=== PATIENT | male | born 1955 | race Caucasian/White ===

== ENCOUNTER 2020-10-07 13:20 | Inpatient (IN) ==
[2020-10-07] MEDS ORDERED: IOPAMIDOL 100 ML BOTTLE IV ONE (13:21)
[2020-10-07 14:19] LABS: POC Blood Urea Nitrogen 22 mg/dL (6-20); POC CO2 21 mmol/L (22-30); POC Calcium, Ionized 1.14 mmEq/L (1.16-1.32); POC Chloride 96 mEq/L (96-108); POC Creatinine 1.2 mg/dL (0.6-1.2); POC Glucose, Random 251 mg/dL (70-105); POC Hematocrit 51 % (41-55); POC Potassium 3.7 mEql/L (3.3-5.1); POC Sodium 136 mEq/L (133-145)
[2020-10-07 14:33] LABS: Basophils # (Auto) 0.04 K/mcL (0.00-0.20); Basophils % (Auto) 0.3 % (0.0-2.0); Eosinophils # (Auto) 0 K/mcL (0.00-0.70); Eosinophils % (Auto) 0 % (0.0-7.0); Hematocrit 50.9 % (41.0-55.0); Hemoglobin 16.5 g/dL (13.5-16.5); Lymphocytes # (Auto) 0.36 K/mcL (1.50-4.80); Lymphocytes % (Auto) 2.8 % (15.0-49.0); Mean Cell Volume 85.7 fL (80.0-100.0); Mean Corpuscular HGB Conc 32.4 g/dL (31.0-36.0); Mean Platelet Volume 10.9 fL (7.4-10.4); Monocytes # (Auto) 0.59 K/mcL (0.10-0.90); Monocytes % (Auto) 4.6 % (1.0-12.0); Neutrophils % (Auto) 92.3 % (38.0-78.0); Platelet Count 280 K/mcL (140-440); RBC 5.94 M/mcL (4.50-5.90); Red Cell Distribution Width 15.3 % (11.5-14.5); WBC 12.9 K/mcL (4.5-11.0)
--- NOTE | 2020-10-07 15:11 | Cat Scan Report ---
History: Perforated bowel with free intra-abdominal air and abdominal pain TECHNIQUE: The patient was imaged following injection of intravenous nonionic contrast scanning during the portal venous phase from the diaphragm to the symphysis pubis. Sagittal and coronal reformats were created. The radiation exposure was limited using dose reduction technology. FINDINGS: There are several bands of discoid atelectasis in the left lung base. No pleural effusion is present. Liver is normal in size. There is mild generalized fatty infiltration. There are couple tiny cysts in the right lobe. Liver otherwise appears normal. The gallbladder and bile ducts are normal. The spleen is normal in size and homogeneous. There is no mass or inflammation in the pancreas. The adrenals are normal. A couple small cortical cysts are present in both kidneys. There is no mass calculus or hydronephrosis in either kidney. Free intra-abdominal air is present in the mid and upper abdomen. This is due to acute sigmoid diverticulitis. There are numerous diverticula in the descending and sigmoid colon. There is stranding of the fat around the sigmoid colon and a small pocket of fluid. No abscess is present. There is no bowel obstruction. Patient has ileus with several fluid filled borderline distended loops of small intestine the mid abdomen. These contain air-fluid levels. Urinary bladder appears normal. Prostate is mildly enlarged and contains calcifications. Moderate amount of calcified plaque is present in the aorta and iliac arteries. Aorta is normal in caliber. There is a small fat-containing umbilical hernia. The hernia also contains a bubble of intraperitoneal air. There is ankylosis across the L5-S1 disc space. Moderate disc space narrowing and osteoarthritis are present at multiple levels throughout the mid and lower thoracic spine. IMPRESSION: Acute sigmoid diverticulitis with perforation allowing for free intra-abdominal air. Ileus Dr. Reza was called with report Interpreted and Authenticated by: Lexa Edmonds 10/07/20
[2020-10-07] MEDS ORDERED: 0.9 % SODIUM CHLORIDE 1,000 ML IV ONE (15:22)
[2020-10-07] MEDS ORDERED: metroNIDAZOLE 500 MG/100 ML BAG IV ONE (15:25)
[2020-10-07] MEDS ORDERED: LEVOFLOXACIN 750 MG/150 ML BAG IV ONE (15:27)
--- NOTE | 2020-10-07 15:39 | Emergency Department Note ---
HPI General Chief complaint: Abdominal Pain Stated complaint: Abdominal pain Time Seen by Provider: 10/07/20 13:23 Source: patient Mode of arrival: ambulatory Limitations: no limitations History of Present Illness HPI Narrative: This is a 65-year-old diabetic male who presents with about 48 hours of abdominal pain. He feels it most notably in the left lower quadrant. He has had some nausea, but no vomiting. He feels like his belly is distended. He denies fever/chills/sweats. Last normal stool was last night, but he states it was dark but not melanic. Remainder of his medical history is significant for hypertension, hyperlipidemia, hypothyroidism. Related Data Previous Rx's Medication Instructions Recorded hydrochlorothiazide 50 mg tablet See Rx Instructions .ROUTE 05/28/20 .COMPLEX #30 tab gemfibrozil 600 mg tablet 600 mg PO QAM #90 tab 07/29/20 levothyroxine 50 mcg tablet 50 mcg PO QDAY #90 tab 07/29/20 bupropion HCl 300 mg 24 hr tablet, 450 mg PO QAM #90 tab 08/20/20 extended release empagliflozin 25 mg tablet See Rx Instructions .ROUTE 09/02/20 .COMPLEX #30 tab glipizide 2.5 mg-metformin 250 mg 2 tab PO BID #120 tab 09/30/20 tablet losartan 50 mg tablet See Rx Instructions .ROUTE 09/30/20 .COMPLEX #30 tab Allergies Allergy/AdvReac Type Severity Reaction Status Date / Time No Known Drug Allergies Allergy Verified 10/07/20 13:33 Review of Systems ROS ROS Narrative: Narrative: All systems ED: reviewed and negative except as stated. [facility] Narrative Patient History Narrative: Narrative: Medical/Surgical/Family History All Active Problems Perforated diverticulum of large intestine (Acute) Abdominal distention (Acute) Abdominal pain (Acute) Irregular heart rhythm (Acute) Medicare welcome visit (Acute) Encounter for tobacco use cessation counseling (Acute) Chewing tobacco use (Chronic) Encounter for Health Maintenance Examination in Adult (Chronic) Hypothyroid (Chronic) Exostosis (Chronic) Wellness examination (Chronic) H/O carbon monoxide poisoning (Chronic ~07/23/11) DMII (diabetes mellitus, type 2) (Chronic) Marijuana use (Chronic) History of tobacco use (Chronic) Stomach ulcer (Chronic ~08/22/71) Hyperlipidemia (Chronic ~09/22/91) Hypertension, essential (Chronic ~09/22/91) Depression (Chronic ~06/26/91) Anxiety (Chronic ~04/23/91) Medical History Anxiety (~04/23/91) Chewing tobacco use Depression (~06/26/91) DMII (diabetes mellitus, type 2) dx 2009 Encounter for Health Maintenance Examination in Adult 06/20/17 Encounter for tobacco use cessation counseling H/O carbon monoxide poisoning (~07/23/11) at [place], 2012 History of tobacco use Hyperlipidemia (~09/22/91) Hypertension, essential (~09/22/91) Hypothyroid Irregular heart rhythm Marijuana use Medicare welcome visit Stomach ulcer (~08/22/71) Wellness examination Surgical History H/O colonoscopy (~2009) Dr. Alford, 2009 repeat Q5 years 06/2016 3 polyps, repeat 5 years H/O knee surgery (~2001) History of esophagogastroduodenoscopy (EGD) (~1991) History of thyroid surgery (~1959) Thyroglossal duct excision at 5 years old Family History Grandmother Arthritis Paternal Mother Cancer Alcohol abuse Father Colon cancer Hypertension, essential Heart disease Hypertensive renal disease Sister Hypertension, essential Family/Other Thyroid disease Cousin Social History Smoking Status: Former smoker Alcohol Intake Frequency: a few times a week Substance Use: marijuana Exam Narrative Narrative: General: AOx3, NAD, nontoxic appearing. Pleasant and conversant. HEENT: PERRLA, EOMI, normocephalic. Moist mucous membranes. Normal facies Chest: Symmetric, no pain to palpation Respiratory: Lungs clear to auscultation bilaterally to the anterior lungs. No respiratory distress. Unlabored breathing. Heart: Regular rate and rhythm, no murmurs/clicks/rubs. Abdomen: Distended and diffusely tender, worse over the hypogastrium. Absent bowel tones. Extremities: Warm and well perfused. No edema. DP 2+ bilaterally. No venous stasis. Neuro: No focal deficits. Cranial nerves II-XII normal. Skin: Warm dry, no rashes or lesions, no cyanosis. Psych: Normal mood and affect Heme/Lymph: No abnormal bruising General Limitations: no limitations Course Course Course Narrative: 65-year-old male presents with acute abdominal pain Reevaluation(s) Reevaluation #1: Obtain basic labs, CBC, CMP, lipase Obtain CT of the abdomen pelvis with contrast to query diverticulitis Reevaluation #2: Plain film of the abdomen shows free air in the abdomen. CT with contrast of the abdomen pelvis shows a perforation of a sigmoid diverticuli with small area of fluid fluid and air in the peritoneal cavity. There is no abscess formation. An ileus is also noted. We will start patient on metronidazole and levofloxacin. Give IV fluids, analgesics, and call placed to general surgery. Covid swab for admission. Vital Signs Vital signs: Vital Signs Temperature 97.0 F 10/07/20 13:31 Pulse Rate 120 H 10/07/20 13:31 Respiratory Rate 20 10/07/20 13:31 Blood Pressure 151/85 10/07/20 13:31 Pulse Oximetry (%) 93 10/07/20 13:31 Temperature 97.0 F 10/07/20 13:31 Pulse Rate 102 H 10/07/20 18:01 Respiratory Rate 20 10/07/20 13:31 Blood Pressure 123/73 10/07/20 18:01 Pulse Oximetry (%) 86 L 10/07/20 18:01 [facility] MDM Narrative Medical decision making narrative: Perforated sigmoid diverticuli I have spoken with Dr. Deluca and he would like the patient admitted. He will be the admitting provider and I have written basic orders for admission. The plan will be for conservative management, nonoperative at this time. Patient has been given metronidazole and levofloxacin. He remains on IV fluids and analgesics. Consult hospitalist for comanagement of his diabetes and blood pressure. Lab Data Result diagrams: 10/07/20 13:40 Labs: Lab Results 10/07/20 10/07/20 10/07/20 Range/Units 13:40 13:40 14:10 WBC 12.9 H (4.5-11.0) K/mcL RBC 5.94 H (4.50-5.90) M/mcL Hgb 16.5 (13.5-16.5) g/dL Hct 50.9 (41.0-55.0) % POC Hct TNP 51 MCV 85.7 (80.0-100.0) fL MCH 27.8 (26.0-34.0) pg MCHC 32.4 (31.0-36.0) g/dL RDW 15.3 H (11.5-14.5) % Plt Count 280 (140-440) K/mcL MPV 10.9 H (7.4-10.4) fL Neut % (Auto) 92.3 H (38.0-78.0) % Lymph % (Auto) 2.8 L (15.0-49.0) % [place] % (Auto) 4.6 (1.0-12.0) % Eos % (Auto) 0 (0.0-7.0) % Baso % (Auto) 0.3 (0.0-2.0) % Lymph # (Auto) 0.36 L (1.50-4.80) K/mcL [place] # (Auto) 0.59 (0.10-0.90) K/mcL Eos # (Auto) 0 (0.00-0.70) K/mcL Baso # (Auto) 0.04 (0.00-0.20) K/mcL Absolute Neutrophils 11.89 H (1.80-8.00) K/mcL POC Sodium TNP 136 POC Potassium TNP 3.7 POC Chloride TNP 96 POC Total CO2 TNP 21 L POC BUN TNP 22 H POC Creatinine TNP 1.2 POC Glucose TNP 251 H POC WB Ioniz Calcium TNP 1.14 L ED POC Tests ED POC Tests: RORY - SARS Antigen Negative Discharge Plan Patient/Caregiver Discharge Instructions Pt seen by [facility]/PA only: Yes Clinical Impression: Perforated diverticulum of large intestine Patient Disposition: Xfer As Inpt ([facility]) Condition: Fair Discharge Date/Time: 10/07/20 18:35
[2020-10-07] MEDS: morphine 2 MG/ML VIAL IV PRN ×2 (16:00→17:05)
[2020-10-07] MEDS ORDERED: morphine 4 MG/ML VIAL IV PRN (16:25)
[2020-10-07] MEDS ORDERED: ONDANSETRON 4 MG/2 ML VIAL IV PRN ×2 (16:25→18:48)
[2020-10-07] MEDS: 0.9 % SODIUM CHLORIDE 1,000 ML IV SCH ×2 (17:00→23:48)
[2020-10-07] MEDS ORDERED: LOSARTAN 50 MG TABLET PO SCH (18:45)
[2020-10-07] MEDS ORDERED: diphenhydrAMINE 25 MG CAPSULE PO PRN (18:53)
--- NOTE | 2020-10-07 19:52 | General Surg History&Physical ---
HPI History of Present Illness Patient information: Note initiated : 10/07/20 at 7:44 pm Service Date, if different from initiated Date: [] Patient: Agustin Goldsmith a 65 y/o M admitted on 10/07/20 for Abdominal pain. Chief Complaint: [] Chief complaint: Diverticulitis History of present illness: Mr. Goldsmith is a 65 year old M with onset of severe abdominal pain while eating on 05 October. The pain was mid abdomen and gradually spread across his entire abdomen. He noted some abdominal distention. He did not have nausea or vomiting. He finally came to the emergency room when the pain became unbearable. He denies fever or chills. In the emergency room he was noted to have small amount of free air on his plain films and CT confirms sigmoid diverticulitis with perforation but without abscess. There is small amount of fluid around the sigmoid colon and air in both subphrenic areas and anteriorly in the abdomen. He is afebrile and his white blood count is 12.5. Review of Systems All systems: reviewed and no additional remarkable complaints except as stated PFSH PFSH All Active Problems Perforated diverticulum of large intestine (Acute) Abdominal distention (Acute) Abdominal pain (Acute) Irregular heart rhythm (Acute) Medicare welcome visit (Acute) Encounter for tobacco use cessation counseling (Acute) Chewing tobacco use (Chronic) Encounter for Health Maintenance Examination in Adult (Chronic) Hypothyroid (Chronic) Exostosis (Chronic) Wellness examination (Chronic) H/O carbon monoxide poisoning (Chronic ~07/23/11) DMII (diabetes mellitus, type 2) (Chronic) Marijuana use (Chronic) History of tobacco use (Chronic) Stomach ulcer (Chronic ~08/22/71) Hyperlipidemia (Chronic ~09/22/91) Hypertension, essential (Chronic ~09/22/91) Depression (Chronic ~06/26/91) Anxiety (Chronic ~04/23/91) Medical History Anxiety (~04/23/91) Chewing tobacco use Depression (~06/26/91) DMII (diabetes mellitus, type 2) dx 2009 Encounter for Health Maintenance Examination in Adult 06/20/17 Encounter for tobacco use cessation counseling H/O carbon monoxide poisoning (~07/23/11) at [place], 2012 History of tobacco use Hyperlipidemia (~09/22/91) Hypertension, essential (~09/22/91) Hypothyroid Irregular heart rhythm Marijuana use Medicare welcome visit Stomach ulcer (~08/22/71) Wellness examination Surgical History H/O colonoscopy (~2009) Dr. Alford, 2009 repeat Q5 years 06/2016 3 polyps, repeat 5 years H/O knee surgery (~2001) History of esophagogastroduodenoscopy (EGD) (~1991) History of thyroid surgery (~1959) Thyroglossal duct excision at 5 years old Family History Grandmother Arthritis Paternal Mother Cancer Alcohol abuse Father Colon cancer Hypertension, essential Heart disease Hypertensive renal disease Sister Hypertension, essential Family/Other Thyroid disease Cousin Social History marital status: single alcohol intake frequency: a few times a week substance use type: marijuana MEDS/ALLERGIES Home Medications and Allergies Home Medications Medication Instructions Recorded Confirmed Type hydrochlorothiazide 50 mg tablet See Rx Instructions .ROUTE 05/28/20 10/07/20 Rx .COMPLEX #30 tab gemfibrozil 600 mg tablet 600 mg PO QAM #90 tab 07/29/20 10/07/20 Rx levothyroxine 50 mcg tablet 50 mcg PO QDAY #90 tab 07/29/20 10/07/20 Rx bupropion HCl 300 mg 24 hr tablet, 450 mg PO QAM #90 tab 08/20/20 10/07/20 Rx extended release empagliflozin 25 mg tablet See Rx Instructions .ROUTE 09/02/20 10/07/20 Rx .COMPLEX #30 tab glipizide 2.5 mg-metformin 250 mg 2 tab PO BID #120 tab 09/30/20 10/07/20 Rx tablet losartan 50 mg tablet See Rx Instructions .ROUTE 09/30/20 10/07/20 Rx .COMPLEX #30 tab Allergies Allergy/AdvReac Type Severity Reaction Status Date / Time No Known Drug Allergies Allergy Verified 10/07/20 13:33 Physical Examination Vital Signs Vital signs: Temp Pulse Resp BP Pulse Ox 97.0 F 102 H 20 123/73 86 L 10/07/20 13:31 10/07/20 18:01 10/07/20 13:31 10/07/20 18:01 10/07/20 18:01 General physical appearance General physical exam: well developed, well nourished, no distress, moderate pain and obese Eyes Eye exam: PERRL and normal ocular movement ENT ENT exam: normal mucosa Head Head exam IM: Present atraumatic, normal inspection and normocephalic Neck Neck exam: no masses, trachea midline, no lymphadenopathy and no venous di stension Cardiovascular Cardiovascular exam IM: Present normal rate and rhythm, RRR, +S1 and +S2; Absent gallop and JVD Respiratory Respiratory exam: normal expansion, normal respiratory effort and clear to auscultation Abdomen Abdomen: Present tender (Diffuse tenderness in the lower and mid abdomen with guarding), bowel sounds and guarding Integumentary Integumentary: Present no rash, no growths and no abnormal pigmentation Neurologic Neurologic: Present normal coordination and normal sensation Musculoskeletal Musculoskeletal: Present normal gait and normal posture Psychiatric Psychiatric: Present oriented to time, oriented to person, oriented to place, speech is normal and memory intact Results Labs Result diagrams: 10/07/20 13:40 Labs: Abnormal lab results 10/07/20 10/07/20 Range/Units 13:40 14:10 WBC 12.9 H (4.5-11.0) K/mcL RBC 5.94 H (4.50-5.90) M/mcL RDW 15.3 H (11.5-14.5) % MPV 10.9 H (7.4-10.4) fL Neut % (Auto) 92.3 H (38.0-78.0) % Lymph % (Auto) 2.8 L (15.0-49.0) % Lymph # (Auto) 0.36 L (1.50-4.80) K/mcL Absolute Neutrophils 11.89 H (1.80-8.00) K/mcL POC Total CO2 21 L (22-30) mmol/L POC BUN 22 H (6-20) mg/dL POC Glucose 251 H (70-105) mg/dL POC WB Ioniz Calcium 1.14 L (1.16-1.32) mmEq/L All other labs normal. 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 status He will receive Levaquin and metronidazole IV As long as he is improving we will continue antibiotics until 4days at which time a follow-up CT of the abdomen and pelvis will be done. If he should worsen he is advised that he will have urgent laparotomy with sigmoid resection and colostomy If he should improve he will be discharged home on 2 weeks of antibiotics with follow-up in the office to confirm full healing of his diverticulitis. Time Spent With Patient Time: Total time spent is greater than 50% in coordination of care (as documented) at patient's floor/unit and/or counseling patient:
[2020-10-07] MEDS: 0.9 % SODIUM CHLORIDE 10 ML SYRINGE IV SCH (20:43)
[2020-10-07] MEDS: HYDROmorphone 0.5 MG/0.5 ML SYRINGE IV PRN ×2 (20:48→23:57)
[2020-10-07 20:51] LABS: INR 1.2 (0.9-1.1); Prothrombin Time 16.1 sec (11.9-14.5)
[2020-10-07] MEDS ORDERED: DEXTROSE 31 GM ORAL.SUSP PO PRN (21:02)
[2020-10-07] MEDS ORDERED: DEXTROSE 50% 50 ML VIAL IV PRN (21:02)
[2020-10-07] MEDS: INSULIN LISPRO 1 UNIT/0.01 ML UNIT SQ SCH (23:57)
[2020-10-08] MEDS: HYDROmorphone 0.5 MG/0.5 ML SYRINGE IV PRN ×4 (04:18→19:52)
[2020-10-08] MEDS: 0.9 % SODIUM CHLORIDE 10 ML SYRINGE IV SCH ×3 (05:57→23:12)
[2020-10-08] MEDS: INSULIN LISPRO 1 UNIT/0.01 ML UNIT SQ SCH ×4 (05:57→23:40)
[2020-10-08 06:48] LABS: Basophils # (Auto) 0.02 K/mcL (0.00-0.20); Basophils % (Auto) 0.2 % (0.0-2.0); Eosinophils # (Auto) 0 K/mcL (0.00-0.70); Eosinophils % (Auto) 0 % (0.0-7.0); Hematocrit 45.8 % (41.0-55.0); Hemoglobin 14.7 g/dL (13.5-16.5); Lymphocytes # (Auto) 0.36 K/mcL (1.50-4.80); Lymphocytes % (Auto) 3.3 % (15.0-49.0); Mean Cell Volume 87.1 fL (80.0-100.0); Mean Corpuscular HGB Conc 32.1 g/dL (31.0-36.0); Mean Platelet Volume 10.4 fL (7.4-10.4); Monocytes # (Auto) 0.49 K/mcL (0.10-0.90); Monocytes % (Auto) 4.5 % (1.0-12.0); Platelet Count 214 K/mcL (140-440); RBC 5.26 M/mcL (4.50-5.90); Red Cell Distribution Width 15.5 % (11.5-14.5); WBC 10.8 K/mcL (4.5-11.0)
[2020-10-08 07:08] LABS: ALT/SGPT 12 U/L (<40); AST/SGOT 10 U/L (<40); Albumin 3.4 gm/dL (3.2-5.2); Alkaline Phosphatase 68 U/L (39-117); Bilirubin,Direct 0.2 mg/dL (<0.3); Bilirubin,Total 0.6 mg/dL (0.1-1.0); Blood Urea Nitrogen 22 mg/dL (8-23); Calcium 8.7 mg/dL (8.6-10.4); Carbon Dioxide 23 mmol/L (22-30); Chloride 98 mmol/L (96-108); Globulin 3.4 gm/dL (2.2-3.7); Glomerular Filtration Rate 89; Glucose 153 mg/dL (70-105); Lactate Dehydrogenase 120 U/L (135-225); Phosphorous 2.5 mg/dL (2.5-4.5); Triglycerides 93 mg/dL (<150)
[2020-10-08] MEDS: PANTOPRAZOLE 40 MG TABLET PO SCH (07:16)
[2020-10-08] MEDS: 0.9 % SODIUM CHLORIDE 1,000 ML IV SCH ×3 (07:16→23:27)
[2020-10-08] MEDS ORDERED: buPROPion 300 MG TAB.XL.24H PO SCH (09:00)
[2020-10-08] MEDS ORDERED: buPROPion 150 MG TAB.XL.24H PO SCH (09:00)
[2020-10-08] MEDS: buPROPion 150 MG TAB.XL.24H PO SCH (09:18)
[2020-10-08] MEDS: LEVOTHYROXINE 50 MCG TABLET PO SCH (09:18)
--- NOTE | 2020-10-08 09:40 | EKG ---
[facility] Test Date: 2020-10-07 Pat Name: Agustin Goldsmith Department: [facility] Room: 128 Gender: Male Sustainability Coordinator: : 1955 Requested By: Cr Deluca Order Number: [id number] Reading MD: Jagdish Romero M.D. Measurements Intervals [place] Rate: 99 P: 0 UT: 200 QRS: -10 QRSD: 76 T: 168 QT: 340 QTc: 437 Interpretive Statements SINUS RHYTHM NO PRIOR TRACING FOUND IN [employer] - Private Location App NORMAL TRACING Electronically Signed On 10-08-2020 9:40:20 PDT by Jagdish Romero M.D. /store/[email or web address]/[id number]/[id number]
--- NOTE | 2020-10-08 11:09 | XRay Report ---
HISTORY: Abdominal pain and preop FINDINGS: The lungs are clear but incompletely expanded due to suboptimal inspiration. The heart size and pulmonary vasculature are normal. There is no pleural effusion. The mediastinum and nick are normal. Comparison with the prior exam from 06/28/11 shows a worse inspiration today. There has been no other significant change. There is moderate arthritis in the left and mild arthritis in the right shoulders. IMPRESSION: Suboptimal inspiration but otherwise normal exam Interpreted and Authenticated by: Lexa Edmonds 10/08/20
--- NOTE | 2020-10-08 11:21 | General Surgery Progress Note ---
SUBJECTIVE Subjective Patient information: Note initiated : 10/08/20 at 11:17 am Service Date, if different from initiated Date: [] Patient: Agustin Goldsmith 65 y/o M admitted on 10/07/20 for Abdominal pain. Chief Complaint: [] Principal diagnosis: Acute diverticulitis Interval history: Patient states that he feels better. He has pain in the lower abdomen bilaterally but it is improved since last evening. He denies nausea. He had a regular bowel movement this morning. He did not notice any bleeding. White blood count is 10.8, hemoglobin 14.7, hematocrit 40.8. Constitutional Vitals: Vital Signs Temp Pulse Resp BP Pulse Ox 97.6 F 80 20 122/78 93 10/08/20 08:00 10/08/20 08:00 10/08/20 08:00 10/08/20 08:00 10/08/20 08:00 Period Temp Pulse Resp BP Sys/Goodrich Pulse Ox Last 24 Hr 97.0 F-98.8 F 80-120 20-24 122-151/68-87 86-93 Intake and Output 10/07/20 10/08/20 10/08/20 21:59 05:59 13:59 Intake Total 1442 898 933 Output Total 700 Balance 1442 198 933 Weight 245 lb Intake & Output: Intake & Output 10/07/20 10/08/20 10/08/20 21:59 05:59 13:59 Intake Total 1442 898 933 Output Total 700 Balance 1442 198 933 Weight 245 lb Intake: IV 1442 658 933 Sodium Chloride 0.9% 1,000 ml @ 1192 658 933 125 mls/hr IV .Q8H [facility] Rx#: [id number] Oral 240 Output: Void Amount 700 Other: Urine Appearance Clear Urine Color Dark Yellow Light Tara # Voids 1 Head Head exam: Present atraumatic, normal inspection and normocephalic Eye Eye exam: Present EOMI, normal appearance and PERRL ENT ENT exam: Present mucous membranes moist and normal oropharynx Neck Neck exam: Present full ROM and normal inspection; Absent lymphadenopathy Respiratory Respiratory exam: Present normal respiratory exam and CTAB Cardiovascular Cardiovascular exam: Present normal rate and rhythm, RRR, +S1 and +S2; Absent JVD GI/Abdominal GI/Abdominal exam: Present distended and tenderness (Tenderness with guarding in bilateral lower abdomen) Extremities Exam Extremities exam: Present full ROM, normal inspection and neurovascular intact Neurological Exam Neurological exam: Present alert and oriented X3 Psychiatric Psychiatric exam: Present normal affect and normal mood A/P Assessment and plan (1) Perforated diverticulum of large intestine: Status: Acute (2) DMII (diabetes mellitus, type 2): Status: Chronic Comment: dx 2009 Qualifiers: Diabetes mellitus complication status: without complication 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 We will continue present regimen with plans CT 4 days post admission Time Spent With Patient Time: Total time spent is greater than 50% in coordination of care (as documented) at patient's floor/unit and/or counseling patient:
[2020-10-09] MEDS: HYDROmorphone 0.5 MG/0.5 ML SYRINGE IV PRN ×4 (03:42→19:06)
[2020-10-09] MEDS: INSULIN LISPRO 1 UNIT/0.01 ML UNIT SQ SCH ×4 (05:52→23:30)
[2020-10-09] MEDS: 0.9 % SODIUM CHLORIDE 10 ML SYRINGE IV SCH ×3 (06:19→21:20)
[2020-10-09 06:27] LABS: Basophils # (Auto) 0.02 K/mcL (0.00-0.20); Basophils % (Auto) 0.2 % (0.0-2.0); Eosinophils # (Auto) 0.01 K/mcL (0.00-0.70); Eosinophils % (Auto) 0.1 % (0.0-7.0); Hematocrit 44.6 % (41.0-55.0); Hemoglobin 14.1 g/dL (13.5-16.5); Lymphocytes # (Auto) 0.42 K/mcL (1.50-4.80); Lymphocytes % (Auto) 4.1 % (15.0-49.0); Mean Cell Volume 88.8 fL (80.0-100.0); Mean Corpuscular HGB Conc 31.6 g/dL (31.0-36.0); Mean Platelet Volume 10.9 fL (7.4-10.4); Monocytes # (Auto) 0.44 K/mcL (0.10-0.90); Monocytes % (Auto) 4.3 % (1.0-12.0); Neutrophils % (Auto) 91.3 % (38.0-78.0); Platelet Count 223 K/mcL (140-440); RBC 5.02 M/mcL (4.50-5.90); Red Cell Distribution Width 15.5 % (11.5-14.5); WBC 10.1 K/mcL (4.5-11.0)
[2020-10-09 07:07] LABS: ALT/SGPT 10 U/L (<40); AST/SGOT 10 U/L (<40); Albumin 2.8 gm/dL (3.2-5.2); Albumin/Globulin Ratio 0.8 (1.0-2.3); Alkaline Phosphatase 76 U/L (39-117); Bilirubin,Direct < 0.2 mg/dL (0-0.3); Bilirubin,Total 0.4 mg/dL (0.1-1.0); Blood Urea Nitrogen 22 mg/dL (8-23); Calcium 8.7 mg/dL (8.6-10.4); Carbon Dioxide 21 mmol/L (22-30); Chloride 104 mmol/L (96-108); Globulin 3.5 gm/dL (2.2-3.7); Glomerular Filtration Rate 93; Glucose 136 mg/dL (70-105); Lactate Dehydrogenase 119 U/L (135-225); Phosphorous 2.6 mg/dL (2.5-4.5); Triglycerides 117 mg/dL (<150); Uric Acid 7.5 mg/dL (2.5-8.0)
[2020-10-09] MEDS: 0.9 % SODIUM CHLORIDE 1,000 ML IV SCH ×3 (07:36→23:30)
[2020-10-09] MEDS: LEVOTHYROXINE 50 MCG TABLET PO SCH (07:39)
[2020-10-09] MEDS: PANTOPRAZOLE 40 MG TABLET PO SCH (07:39)
[2020-10-09] MEDS: buPROPion 150 MG TAB.XL.24H PO SCH (07:39)
[2020-10-09] MEDS: LOSARTAN 50 MG TABLET PO SCH (12:25)
--- NOTE | 2020-10-09 16:29 | General Surgery Progress Note ---
SUBJECTIVE Subjective Patient information: Note initiated : 10/09/20 at 4:25 pm Service Date, if different from initiated Date: [] Patient: Agustin Goldsmith 65 y/o M admitted on 10/07/20 for Abdominal pain. Chief Complaint: [] Principal diagnosis: Acute diverticulitis Interval history: Patient states that he feels better though he still has mid abdominal discomfort and pain in both lower quadrants. He denies nausea vomiting. He has been afebrile. White blood count 10.1, hemoglobin 14, potassium 3.9, BUN 22, creatinine 0.8. He has started passing flatus but has not had a bowel movement. Constitutional Vitals: Vital Signs Temp Pulse Resp BP Pulse Ox 97.3 F 79 18 138/86 94 10/09/20 12:00 10/09/20 12:00 10/09/20 07:49 10/09/20 12:00 10/09/20 12:00 Period Temp Pulse Resp BP Sys/Goodrich Pulse Ox Last 24 Hr 97.3 F-98.8 F 76-86 18-20 132-147/74-86 90-94 Intake and Output 10/09/20 10/09/20 10/09/20 05:59 13:59 21:59 Intake Total 1240 1000 1200 Output Total 675 500 Balance 953 819 3314 Intake & Output: Intake & Output 10/09/20 10/09/20 10/09/20 05:59 13:59 21:59 Intake Total 1240 1000 1200 Output Total 675 500 Balance 301 747 6635 Intake: IV 1000 1000 1000 Sodium Chloride 0.9% 1,000 ml @ 1000 1000 1000 125 mls/hr IV .Q8H [facility] Rx#: [id number] Oral 240 200 Output: Void Amount 675 500 Other: Urine Appearance Clear Clear Urine Color Dark Yellow Dark Yellow Light Tara Urine Odor Normal Head Head exam: Present atraumatic, normal inspection and normocephalic Eye Eye exam: Present EOMI, normal appearance and PERRL ENT ENT exam: Present mucous membranes moist and normal oropharynx Neck Neck exam: Present full ROM and normal inspection; Absent lymphadenopathy Respiratory Respiratory exam: Present normal respiratory exam and CTAB Cardiovascular Cardiovascular exam: Present normal rate and rhythm, RRR, +S1 and +S2; Absent JVD GI/Abdominal GI/Abdominal exam: Present distended and tenderness (Tenderness with guarding in bilateral lower abdomen) Extremities Exam Extremities exam: Present full ROM, normal inspection and neurovascular intact Neurological Exam Neurological exam: Present alert and oriented X3 Psychiatric Psychiatric exam: Present normal affect and normal mood A/P Assessment and plan (1) Perforated diverticulum of large intestine: Status: Acute (2) DMII (diabetes mellitus, type 2): Status: Chronic Comment: dx 2009 Qualifiers: Diabetes mellitus complication status: without complication 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 Continue on present therapy Advance to clear liquid diet CT of abdomen and pelvis with IV contrast on Tuesday, 11 October 2020 Time Spent With Patient Time: Total time spent is greater than 50% in coordination of care (as documented) at patient's floor/unit and/or counseling patient:
[2020-10-10] MEDS: HYDROmorphone 0.5 MG/0.5 ML SYRINGE IV PRN ×2 (03:53→18:48)
[2020-10-10] MEDS: INSULIN LISPRO 1 UNIT/0.01 ML UNIT SQ SCH ×4 (05:36→23:37)
[2020-10-10] MEDS: 0.9 % SODIUM CHLORIDE 10 ML SYRINGE IV SCH ×3 (05:36→21:05)
[2020-10-10 06:30] LABS: Basophils # (Auto) 0.03 K/mcL (0.00-0.20); Basophils % (Auto) 0.3 % (0.0-2.0); Eosinophils # (Auto) 0.03 K/mcL (0.00-0.70); Eosinophils % (Auto) 0.3 % (0.0-7.0); Hematocrit 42.4 % (41.0-55.0); Hemoglobin 13.1 g/dL (13.5-16.5); Lymphocytes # (Auto) 0.51 K/mcL (1.50-4.80); Lymphocytes % (Auto) 4.9 % (15.0-49.0); Mean Cell Volume 88.9 fL (80.0-100.0); Mean Corpuscular HGB Conc 30.9 g/dL (31.0-36.0); Mean Platelet Volume 10.5 fL (7.4-10.4); Monocytes # (Auto) 0.55 K/mcL (0.10-0.90); Monocytes % (Auto) 5.2 % (1.0-12.0); Neutrophils % (Auto) 89.3 % (38.0-78.0); Platelet Count 232 K/mcL (140-440); RBC 4.77 M/mcL (4.50-5.90); Red Cell Distribution Width 15.3 % (11.5-14.5); WBC 10.5 K/mcL (4.5-11.0)
[2020-10-10 07:03] LABS: ALT/SGPT 9 U/L (<40); AST/SGOT 17 U/L (<40); Albumin 2.5 gm/dL (3.2-5.2); Albumin/Globulin Ratio 0.8 (1.0-2.3); Alkaline Phosphatase 79 U/L (39-117); Bilirubin,Direct < 0.2 mg/dL (0-0.3); Bilirubin,Total 0.4 mg/dL (0.1-1.0); Blood Urea Nitrogen 17 mg/dL (8-23); Calcium 8.3 mg/dL (8.6-10.4); Carbon Dioxide 19 mmol/L (22-30); Chloride 106 mmol/L (96-108); Globulin 3.3 gm/dL (2.2-3.7); Glomerular Filtration Rate 105; Glucose 123 mg/dL (70-105); Lactate Dehydrogenase 209 U/L (135-225); Phosphorous 2.5 mg/dL (2.5-4.5); Triglycerides 131 mg/dL (<150); Uric Acid 7.3 mg/dL (2.5-8.0)
[2020-10-10] MEDS: PANTOPRAZOLE 40 MG TABLET PO SCH (07:35)
[2020-10-10] MEDS: 0.9 % SODIUM CHLORIDE 1,000 ML IV SCH ×2 (07:37→18:45)
[2020-10-10] MEDS: buPROPion 150 MG TAB.XL.24H PO SCH (08:38)
[2020-10-10] MEDS: LEVOTHYROXINE 50 MCG TABLET PO SCH (08:38)
[2020-10-10] MEDS: LOSARTAN 50 MG TABLET PO SCH (08:38)
--- NOTE | 2020-10-10 17:24 | General Surgery Progress Note ---
SUBJECTIVE Subjective Patient information: Note initiated : 10/10/20 at 5:20 pm Service Date, if different from initiated Date: [] Patient: Agustin Goldsmith 65 y/o M admitted on 10/07/20 for Abdominal pain. Chief Complaint: [] Principal diagnosis: Acute diverticulitis Interval history: Patient is doing much better. He states that his pain is better controlled. He has had flatus and regular bowel movement. He denies nausea. White blood count 10.5, hemoglobin 13.1, hematocrit 42.4. Electrolytes are normal. Constitutional Vitals: Vital Signs Temp Pulse Resp BP Pulse Ox 97 F 64 18 129/77 96 10/10/20 15:41 10/10/20 15:41 10/10/20 15:41 10/10/20 15:41 10/10/20 15:41 Period Temp Pulse Resp BP Sys/Goodrich Pulse Ox Last 24 Hr 97 F-98.8 F 60-78 16-20 121-144/71-81 93-96 Intake and Output 10/10/20 10/10/20 10/10/20 05:59 13:59 21:59 Intake Total 1000 1000 800 Output Total 600 Balance 400 1000 800 Intake & Output: Intake & Output 10/10/20 10/10/20 10/10/20 05:59 13:59 21:59 Intake Total 1000 1000 800 Output Total 600 Balance 400 1000 800 Intake: IV 1000 1000 Sodium Chloride 0.9% 1,000 ml @ 1000 1000 125 mls/hr IV .Q8H [facility] Rx#: [id number] Oral 800 Output: Void Amount 600 Other: Meal Breakfast Percent of Meal Consumed 100% Feeding Ability Independent Stool Size Large Stool Color Brown Stool Consistency Dry and Hard # Voids 2 # Bowel Movements 1 Eye Eye exam: Present EOMI, normal appearance and PERRL ENT ENT exam: Present mucous membranes moist and normal oropharynx Neck Neck exam: Present full ROM and normal inspection; Absent lymphadenopathy Respiratory Respiratory exam: Present normal respiratory exam and CTAB Cardiovascular Cardiovascular exam: Present normal rate and rhythm, RRR, +S1 and +S2; Absent JVD GI/Abdominal GI/Abdominal exam: Present normal bowel sounds, soft, distended and tenderness (Tenderness is much better in both lower quadrants. He does not not have any mid abdominal tenderness) Extremities Exam Extremities exam: Present full ROM, normal inspection and neurovascular intact Neurological Exam Neurological exam: Present alert and oriented X3 Psychiatric Psychiatric exam: Present normal affect and normal mood A/P Assessment and plan (1) Perforated diverticulum of large intestine: Status: Acute (2) DMII (diabetes mellitus, type 2): Status: Chronic Comment: dx 2009 Qualifiers: Diabetes mellitus complication status: without complication Diabetes mellitus moth exterminator insulin use: without moth exterminator use Qualified Code(s): E11.9 - Type 2 diabetes mellitus without complications (3) Marijuana use: Status: Chronic (4) History of tobacco use: Status: Chronic Narrative A/P Narrative: Patient is significantly improved. Will have follow-up CT of abdomen pelvis tomorrow Time Spent With Patient Time: Total time spent is greater than 50% in coordination of care (as documented) at patient's floor/unit and/or counseling patient:
[2020-10-11] MEDS: HYDROmorphone 0.5 MG/0.5 ML SYRINGE IV PRN ×4 (00:38→20:26)
[2020-10-11] MEDS: 0.9 % SODIUM CHLORIDE 1,000 ML IV SCH ×4 (02:46→20:24)
[2020-10-11] MEDS: 0.9 % SODIUM CHLORIDE 10 ML SYRINGE IV SCH ×3 (05:03→21:28)
[2020-10-11] MEDS: INSULIN LISPRO 1 UNIT/0.01 ML UNIT SQ SCH ×3 (05:45→17:07)
[2020-10-11 06:46] LABS: Basophils # (Auto) 0.04 K/mcL (0.00-0.20); Basophils % (Auto) 0.4 % (0.0-2.0); Eosinophils # (Auto) 0.06 K/mcL (0.00-0.70); Eosinophils % (Auto) 0.6 % (0.0-7.0); Hematocrit 41.1 % (41.0-55.0); Lymphocytes # (Auto) 0.68 K/mcL (1.50-4.80); Lymphocytes % (Auto) 6.4 % (15.0-49.0); Mean Cell Volume 87.4 fL (80.0-100.0); Mean Corpuscular HGB Conc 31.6 g/dL (31.0-36.0); Mean Platelet Volume 10.7 fL (7.4-10.4); Monocytes # (Auto) 0.66 K/mcL (0.10-0.90); Monocytes % (Auto) 6.2 % (1.0-12.0); Neutrophils % (Auto) 86.4 % (38.0-78.0); Platelet Count 233 K/mcL (140-440); Red Cell Distribution Width 15.5 % (11.5-14.5); WBC 10.7 K/mcL (4.5-11.0)
[2020-10-11 06:58] LABS: ALT/SGPT 13 U/L (<40); AST/SGOT 14 U/L (<40); Albumin 2.5 gm/dL (3.2-5.2); Albumin/Globulin Ratio 0.8 (1.0-2.3); Alkaline Phosphatase 78 U/L (39-117); Bilirubin,Direct < 0.2 mg/dL (0-0.3); Bilirubin,Total 0.4 mg/dL (0.1-1.0); Blood Urea Nitrogen 12 mg/dL (8-23); Calcium 8.1 mg/dL (8.6-10.4); Carbon Dioxide 23 mmol/L (22-30); Chloride 103 mmol/L (96-108); Globulin 3.2 gm/dL (2.2-3.7); Glomerular Filtration Rate 99; Glucose 129 mg/dL (70-105); Lactate Dehydrogenase 158 U/L (135-225); Phosphorous 2.8 mg/dL (2.5-4.5); Triglycerides 139 mg/dL (<150); Uric Acid 6.1 mg/dL (2.5-8.0)
[2020-10-11] MEDS ORDERED: IOPAMIDOL 100 ML BOTTLE IV ONE (07:03)
[2020-10-11] MEDS: PANTOPRAZOLE 40 MG TABLET PO SCH (07:55)
[2020-10-11] MEDS: buPROPion 150 MG TAB.XL.24H PO SCH (08:01)
[2020-10-11] MEDS: LEVOTHYROXINE 50 MCG TABLET PO SCH (08:01)
[2020-10-11] MEDS: LOSARTAN 50 MG TABLET PO SCH (08:02)
--- NOTE | 2020-10-11 09:04 | Cat Scan Report ---
History: Perforated sigmoid diverticulitis TECHNIQUE: Following injection of intravenous nonionic contrast the patient was scanned during the portal venous phase from the diaphragm through the symphysis pubis. Sagittal and coronal reformats were created. The radiation exposure was limited using dose reduction technology. FINDINGS: A very small layering right-sided pleural effusion is present. There is mild atelectasis in the posterior segments of both lower lobes. There is moderate fatty infiltration of the liver. Liver is normal in size. The gallbladder and bile ducts are normal. The pancreas, spleen, adrenals are normal. Small cortical cyst is present anteriorly in the right kidney. Is also perinephric stranding around the right kidney with a thin rim of fluid in the right perirenal space. There is milder stranding along the margin left kidney. Fluid around the right kidney has increased in volume since 10/07/20. There is no evidence of perirenal abscess. No hydronephrosis is present. Moderate amount calcified plaque is present along the wall of normal caliber abdominal aorta. Patient has acute sigmoid diverticulitis. Inferior to the sigmoid colon and above the urinary bladder there is irregularly shaped pocket of fluid which measures 2.8 x 2.8 x 7.2 cm. This has enlarged since prior CT done on 10/07/20. There is no gas within this pocket of fluid. Patient has also developed inflammation around the terminal ileum which is new. The appendix is relatively plump and ranges from 7 to 9 mm in size. However, there is very little inflammation around the appendix itself. Most of the inflammation is located inferior to the cecum and inferior to the terminal ileum. In this location there is an abscess collection which contains small bubbles of air. The collection is irregular in contour and measures 3 x 3 x 8 cm in size. There is a small pocket of free fluid in the same area on the prior study. This has since evolved into an abscess. There are still multiple bubbles of free intraperitoneal air in the abdomen or pelvis due to perforation. The volume of free intraperitoneal air has diminished. There is now an ileus. The jejunum now measures up to 5 cm in diameter and has several air-fluid levels. The ileum is nondilated. Urinary bladder is moderately distended. IMPRESSION: Small abscess collection in the right upper pelvis near the terminal ileum. This is at the same level as the umbilicus. Nonspecific collection of fluid between the bladder and sigmoid colon Inflammation of the terminal ileum and sigmoid colon. The perforated bowel appears to have sealed off and there is less air in the peritoneal space today than there was previously Interpreted and Authenticated by: Lexa Edmonds 10/11/20
--- NOTE | 2020-10-11 13:27 | General Surgery Progress Note ---
SUBJECTIVE Subjective Patient information: Note initiated : 10/11/20 at 1:21 pm Service Date, if different from initiated Date: [] Patient: Agustin Goldsmith 65 y/o M admitted on 10/07/20 for Abdominal pain. Chief Complaint: [] Principal diagnosis: Acute diverticulitis Interval history: Patient still has moderate lower abdominal pain. The discomfort on the right side is actually worse than the left. White blood count is 10.7 and hemoglobin is 13. BUN and creatinine are normal. Serum potassium 3.3. CT shows decrease volume of free air but with organizing small abscess in the right lower quadrant and in the pelvis between the sigmoid colon and the bladder. Discussed with patient that he will need to have continued IV antibiotics and probably will need a PICC line for IV antibiotics as an outpatient. Since he is clinically stable the plan is to continue antibiotics Constitutional Vitals: Vital Signs Temp Pulse Resp BP Pulse Ox 97.7 F 64 16 127/69 95 10/11/20 11:40 10/11/20 11:40 10/11/20 11:40 10/11/20 11:40 10/11/20 11:40 Period Temp Pulse Resp BP Sys/Goodrich Pulse Ox Last 24 Hr 97 F-98.9 F 57-64 16-22 100-133/59-77 93-96 Intake and Output 10/10/20 10/11/20 10/11/20 21:59 05:59 13:59 Intake Total 2520 1000 1000 Balance 2520 1000 1000 Weight 256 lb 7 oz Intake & Output: Intake & Output 10/10/20 10/11/20 10/11/20 21:59 05:59 13:59 Intake Total 2520 1000 1000 Balance 2520 1000 1000 Weight 256 lb 7 oz Intake: IV 1000 1000 1000 Sodium Chloride 0.9% 1,000 ml @ 1000 1000 1000 125 mls/hr IV .Q8H [facility] Rx#: [id number] Oral 1520 Other: Meal Dinner Percent of Meal Consumed 100% Feeding Ability Independent Stool Size Small Stool Color Brown Stool Consistency Dry and Hard # Voids 1 Head Head exam: Present atraumatic, normal inspection and normocephalic Eye Eye exam: Present EOMI, normal appearance and PERRL ENT ENT exam: Present mucous membranes moist and normal oropharynx Neck Neck exam: Present full ROM and normal inspection; Absent lymphadenopathy Respiratory Respiratory exam: Present normal respiratory exam and CTAB Cardiovascular Cardiovascular exam: Present normal rate and rhythm, RRR, +S1 and +S2; Absent JVD GI/Abdominal GI/Abdominal exam: Present normal bowel sounds, soft, distended and tenderness (Tenderness is much better in both lower quadrants. He does not not have any mid abdominal tenderness) Extremities Exam Extremities exam: Present full ROM, normal inspection and neurovascular intact Neurological Exam Neurological exam: Present alert and oriented X3 Psychiatric Psychiatric exam: Present normal affect and normal mood A/P Assessment and plan (1) Perforated diverticulum of large intestine: Status: Acute Narrative A/P Narrative: Continue IV antibiotics with repeat CT on Tuesday Will probably start PICC line on Tuesday for plans for outpatient antibiotics x2 weeks Time Spent With Patient Time: Total time spent is greater than 50% in coordination of care (as documented) at patient's floor/unit and/or counseling patient:
[2020-10-12] MEDS: HYDROmorphone 0.5 MG/0.5 ML SYRINGE IV PRN ×3 (00:02→21:22)
[2020-10-12] MEDS: INSULIN LISPRO 1 UNIT/0.01 ML UNIT SQ SCH ×4 (00:05→17:36)
[2020-10-12] MEDS: 0.9 % SODIUM CHLORIDE 1,000 ML IV SCH ×4 (04:18→14:49)
[2020-10-12] MEDS: 0.9 % SODIUM CHLORIDE 10 ML SYRINGE IV SCH ×3 (04:29→21:22)
[2020-10-12 07:31] LABS: Basophils # (Auto) 0.07 K/mcL (0.00-0.20); Basophils % (Auto) 0.5 % (0.0-2.0); Eosinophils # (Auto) 0.07 K/mcL (0.00-0.70); Eosinophils % (Auto) 0.5 % (0.0-7.0); Hematocrit 45.3 % (41.0-55.0); Hemoglobin 14.1 g/dL (13.5-16.5); Lymphocytes # (Auto) 0.81 K/mcL (1.50-4.80); Lymphocytes % (Auto) 6.3 % (15.0-49.0); Mean Cell Volume 89.2 fL (80.0-100.0); Mean Corpuscular HGB Conc 31.1 g/dL (31.0-36.0); Mean Platelet Volume 10.7 fL (7.4-10.4); Monocytes # (Auto) 0.87 K/mcL (0.10-0.90); Monocytes % (Auto) 6.7 % (1.0-12.0); Platelet Count 255 K/mcL (140-440); RBC 5.08 M/mcL (4.50-5.90); Red Cell Distribution Width 15.4 % (11.5-14.5)
[2020-10-12 07:42] LABS: ALT/SGPT 12 U/L (<40); AST/SGOT 14 U/L (<40); Albumin 2.5 gm/dL (3.2-5.2); Albumin/Globulin Ratio 0.7 (1.0-2.3); Alkaline Phosphatase 79 U/L (39-117); Bilirubin,Direct < 0.2 mg/dL (0-0.3); Bilirubin,Total 0.5 mg/dL (0.1-1.0); Blood Urea Nitrogen 8 mg/dL (8-23); Calcium 8.2 mg/dL (8.6-10.4); Carbon Dioxide 23 mmol/L (22-30); Chloride 102 mmol/L (96-108); Globulin 3.4 gm/dL (2.2-3.7); Glomerular Filtration Rate 105; Glucose 116 mg/dL (70-105); Lactate Dehydrogenase 223 U/L (135-225); Phosphorous 2.9 mg/dL (2.5-4.5); Triglycerides 144 mg/dL (<150)
[2020-10-12] MEDS: buPROPion 150 MG TAB.XL.24H PO SCH (07:57)
[2020-10-12] MEDS: LOSARTAN 50 MG TABLET PO SCH (07:57)
[2020-10-12] MEDS: LEVOTHYROXINE 50 MCG TABLET PO SCH (07:57)
[2020-10-12] MEDS: PANTOPRAZOLE 40 MG TABLET PO SCH (07:57)
--- NOTE | 2020-10-12 14:00 | General Surgery Progress Note ---
SUBJECTIVE Subjective Patient information: Note initiated : 10/12/20 at 1:56 pm Service Date, if different from initiated Date: [] Patient: Agustin Goldsmith 65 y/o M admitted on 10/07/20 for Abdominal pain. Chief Complaint: [] Principal diagnosis: Acute diverticulitis Interval history: Patient is stable. His pain is controlled. He has had flatus and small bowel movement. He denies nausea. Potassium three, BUN eight, crea tinine 0.6, white blood count 13, hemoglobin 14.1 Constitutional Vitals: Vital Signs Temp Pulse Resp BP Pulse Ox 98.3 F 66 18 164/82 93 10/12/20 11:16 10/12/20 11:16 10/12/20 11:16 10/12/20 11:16 10/12/20 11:16 Period Temp Pulse Resp BP Sys/Goodrich Pulse Ox Last 24 Hr 97.4 F-98.5 F 60-66 16-22 137-176/73-85 92-96 Intake and Output 10/11/20 10/12/20 10/12/20 21:59 05:59 13:59 Intake Total 0159 565 6836 Balance 1160 217 4719 Weight 256 lb 7 oz Intake & Output: Intake & Output 10/11/20 10/12/20 10/12/20 21:59 05:59 13:59 Intake Total 6408 416 2665 Balance 5587 070 8005 Weight 256 lb 7 oz Intake: IV 081 527 8233 Sodium Chloride 0.9% 1,000 ml @ 572 946 8938 125 mls/hr IV .Q8H [facility] Rx#: [id number] Oral 600 240 Other: Meal Dinner Breakfast Percent of Meal Consumed 75% 75% Feeding Ability Independent Independent Stool Size Moderate Stool Color Brown Stool Consistency Soft Formed # Voids 1 1 # Bowel Movements 1 ENT ENT exam: Present mucous membranes moist and normal oropharynx Neck Neck exam: Present full ROM and normal inspection; Absent lymphadenopathy Respiratory Respiratory exam: Present normal respiratory exam and CTAB Cardiovascular Cardiovascular exam: Present normal rate and rhythm, RRR, +S1 and +S2; Absent JVD GI/Abdominal GI/Abdominal exam: Present normal bowel sounds, soft, distended and tenderness (Tenderness is much better in both lower quadrants. He does not not have any mid abdominal tenderness) Extremities Exam Extremities exam: Present full ROM, normal inspection and neurovascular intact Neurological Exam Neurological exam: Present alert and oriented X3 Psychiatric Psychiatric exam: Present normal affect and normal mood A/P Assessment and plan (1) Perforated diverticulum of large intestine: Status: Acute Narrative A/P Narrative: Continue present antibiotics Replace potassium Continue to monitor CBC and electrolytes Time Spent With Patient Time: Total time spent is greater than 50% in coordination of care (as documented) at patient's floor/unit and/or counseling patient:
[2020-10-12] MEDS: POTASSIUM PHOSPHATE 40 MEQ in DEXTROSE 5% IN WATER 500 ML IV SCH ×2 (14:21→19:36)
[2020-10-12] MEDS: LEVOFLOXACIN 750 MG/150 ML BAG IV SCH (21:19)
[2020-10-12] MEDS: metroNIDAZOLE 500 MG/100 ML BAG IV SCH (23:00)
[2020-10-13] MEDS: INSULIN LISPRO 1 UNIT/0.01 ML UNIT SQ SCH ×5 (00:03→23:18)
[2020-10-13] MEDS: metroNIDAZOLE 500 MG/100 ML BAG IV SCH ×4 (05:32→23:13)
[2020-10-13] MEDS: 0.9 % SODIUM CHLORIDE 10 ML SYRINGE IV SCH ×3 (05:33→22:05)
[2020-10-13] MEDS: 0.9 % SODIUM CHLORIDE 1,000 ML IV SCH ×4 (06:55→23:13)
[2020-10-13 07:38] LABS: Basophils # (Auto) 0.04 K/mcL (0.00-0.20); Basophils % (Auto) 0.3 % (0.0-2.0); Eosinophils # (Auto) 0.07 K/mcL (0.00-0.70); Eosinophils % (Auto) 0.5 % (0.0-7.0); Hematocrit 44.1 % (41.0-55.0); Hemoglobin 14.1 g/dL (13.5-16.5); Lymphocytes # (Auto) 0.64 K/mcL (1.50-4.80); Lymphocytes % (Auto) 4.9 % (15.0-49.0); Mean Cell Volume 86.8 fL (80.0-100.0); Mean Platelet Volume 10.5 fL (7.4-10.4); Monocytes # (Auto) 1.01 K/mcL (0.10-0.90); Monocytes % (Auto) 7.8 % (1.0-12.0); Neutrophils % (Auto) 86.5 % (38.0-78.0); Platelet Count 260 K/mcL (140-440); RBC 5.08 M/mcL (4.50-5.90); Red Cell Distribution Width 15.1 % (11.5-14.5); WBC 12.9 K/mcL (4.5-11.0)
[2020-10-13 08:07] LABS: ALT/SGPT 12 U/L (<40); AST/SGOT 16 U/L (<40); Albumin 2.7 gm/dL (3.2-5.2); Albumin/Globulin Ratio 0.9 (1.0-2.3); Alkaline Phosphatase 73 U/L (39-117); Bilirubin,Direct < 0.2 mg/dL (0-0.3); Bilirubin,Total 0.5 mg/dL (0.1-1.0); Blood Urea Nitrogen 5 mg/dL (8-23); Calcium 8.3 mg/dL (8.6-10.4); Carbon Dioxide 22 mmol/L (22-30); Chloride 101 mmol/L (96-108); Globulin 3.1 gm/dL (2.2-3.7); Glomerular Filtration Rate 105; Glucose 144 mg/dL (70-105); Lactate Dehydrogenase 204 U/L (135-225); Phosphorous 3.2 mg/dL (2.5-4.5); Triglycerides 129 mg/dL (<150); Uric Acid 4.3 mg/dL (2.5-8.0)
[2020-10-13] MEDS: LEVOFLOXACIN 750 MG/150 ML BAG IV SCH (08:55)
[2020-10-13] MEDS: buPROPion 150 MG TAB.XL.24H PO SCH (08:57)
[2020-10-13] MEDS: LOSARTAN 50 MG TABLET PO SCH (08:58)
[2020-10-13] MEDS: LEVOTHYROXINE 50 MCG TABLET PO SCH (08:58)
[2020-10-13] MEDS: PANTOPRAZOLE 40 MG TABLET PO SCH (08:58)
--- NOTE | 2020-10-13 13:58 | General Surgery Progress Note ---
SUBJECTIVE Subjective Patient information: Note initiated : 10/13/20 at 1:54 pm Service Date, if different from initiated Date: [] Patient: Agustin Goldsmith 65 y/o M admitted on 10/07/20 for Abdominal pain. Chief Complaint: [] Principal diagnosis: Acute diverticulitis Interval history: Patient states that he feels improved. He has been afebrile. His lower abdominal pain continues to improve. He has had flatus and another bowel movement. He does have mild nausea. White blood count 12.9, hemoglobin 14.9, hematocrit 44.1, potassium 3.4, BUN 5, 0 creatinine 0.6. Constitutional Vitals: Vital Signs Temp Pulse Resp BP Pulse Ox 98.1 F 69 22 135/81 95 10/13/20 12:00 10/13/20 12:00 10/13/20 12:00 10/13/20 12:00 10/13/20 12:00 Period Temp Pulse Resp BP Sys/Goodrich Pulse Ox Last 24 Hr 97.6 F-99.0 F 60-71 18-22 132-152/70-81 94-96 Intake and Output 10/12/20 10/13/20 10/13/20 21:59 05:59 13:59 Intake Total 3612 422.8444 250 Output Total 400 Balance 1615 008.5256 -150 Weight 266 lb 1.6 oz Intake & Output: Intake & Output 10/12/20 10/13/20 10/13/20 21:59 05:59 13:59 Intake Total 4648 279.2724 250 Output Total 400 Balance 0733 338.1069 -150 Weight 266 lb 1.6 oz Intake: IV 6794 502.2915 250 Sodium Chloride 0.9% 1,000 ml @ 1000 0 125 mls/hr IV .Q8H [facility] Rx#: [id number] Potassium Phosphate 40 Meq In 889 554.6294 Dextrose 5% in Water 500 ml @ 127.273 mls/hr IV Q4H [facility] Rx#: [id number] Oral 270 Output: Void Amount 400 Other: Meal Dinner Percent of Meal Consumed 0% Urine Color Straw Urine Odor Normal Stool Color Brown Stool Consistency Soft Formed # Voids 1 1 ENT ENT exam: Present mucous membranes moist and normal oropharynx Neck Neck exam: Present full ROM and normal inspection; Absent lymphadenopathy Respiratory Respiratory exam: Present normal respiratory exam and CTAB Cardiovascular Cardiovascular exam: Present normal rate and rhythm, RRR, +S1 and +S2; Absent JVD GI/Abdominal GI/Abdominal exam: Present normal bowel sounds, soft, distended and tenderness (Tenderness is much better in both lower quadrants. He does not not have any mid abdominal tenderness) Extremities Exam Extremities exam: Present full ROM, normal inspection and neurovascular intact Neurological Exam Neurological exam: Present alert and oriented X3 Psychiatric Psychiatric exam: Present normal affect and normal mood A/P Assessment and plan (1) Perforated diverticulum of large intestine: Status: Acute Narrative A/P Narrative: Continue Levaquin and metronidazole Check labs in the morning prior to getting CT of the abdomen and pelvis Potentially he may be able to be discharged and about 2 days on oral antibiotics only. The decision will be dependent on the CT findings. Time Spent With Patient Time: Total time spent is greater than 50% in coordination of care (as documented) at patient's floor/unit and/or counseling patient:
[2020-10-13] MEDS: HYDROmorphone 0.5 MG/0.5 ML SYRINGE IV PRN (18:37)
[2020-10-14] MEDS: metroNIDAZOLE 500 MG/100 ML BAG IV SCH (06:11)
[2020-10-14] MEDS: 0.9 % SODIUM CHLORIDE 10 ML SYRINGE IV SCH (06:14)
[2020-10-14] MEDS: INSULIN LISPRO 1 UNIT/0.01 ML UNIT SQ SCH ×2 (06:14→13:05)
[2020-10-14] MEDS: HYDROmorphone 0.5 MG/0.5 ML SYRINGE IV PRN (06:19)
[2020-10-14 06:20] LABS: Basophils # (Auto) 0.04 K/mcL (0.00-0.20); Basophils % (Auto) 0.3 % (0.0-2.0); Eosinophils # (Auto) 0.03 K/mcL (0.00-0.70); Eosinophils % (Auto) 0.2 % (0.0-7.0); Hematocrit 44.3 % (41.0-55.0); Hemoglobin 13.6 g/dL (13.5-16.5); Lymphocytes # (Auto) 0.76 K/mcL (1.50-4.80); Lymphocytes % (Auto) 6.1 % (15.0-49.0); Mean Corpuscular HGB Conc 30.7 g/dL (31.0-36.0); Mean Platelet Volume 10.3 fL (7.4-10.4); Monocytes % (Auto) 7.2 % (1.0-12.0); Neutrophils % (Auto) 86.2 % (38.0-78.0); Platelet Count 280 K/mcL (140-440); RBC 5.09 M/mcL (4.50-5.90); Red Cell Distribution Width 15.1 % (11.5-14.5); WBC 12.5 K/mcL (4.5-11.0)
[2020-10-14 07:20] LABS: ALT/SGPT 14 U/L (<40); AST/SGOT 19 U/L (<40); Albumin 2.7 gm/dL (3.2-5.2); Albumin/Globulin Ratio 0.9 (1.0-2.3); Alkaline Phosphatase 89 U/L (39-117); Bilirubin,Direct < 0.2 mg/dL (0-0.3); Bilirubin,Total 0.5 mg/dL (0.1-1.0); Blood Urea Nitrogen 6 mg/dL (8-23); Calcium 8.4 mg/dL (8.6-10.4); Carbon Dioxide 24 mmol/L (22-30); Chloride 104 mmol/L (96-108); Globulin 3.1 gm/dL (2.2-3.7); Glomerular Filtration Rate 99; Glucose 132 mg/dL (70-105); Lactate Dehydrogenase 262 U/L (135-225); Phosphorous 3.3 mg/dL (2.5-4.5); Triglycerides 96 mg/dL (<150); Uric Acid 4.2 mg/dL (2.5-8.0)
[2020-10-14] MEDS: PANTOPRAZOLE 40 MG TABLET PO SCH (07:43)
[2020-10-14] MEDS: LEVOFLOXACIN 750 MG/150 ML BAG IV SCH (08:48)
[2020-10-14] MEDS: LEVOTHYROXINE 50 MCG TABLET PO SCH (08:49)
[2020-10-14] MEDS: LOSARTAN 50 MG TABLET PO SCH (08:49)
[2020-10-14] MEDS: buPROPion 150 MG TAB.XL.24H PO SCH (08:49)
[2020-10-14] MEDS ORDERED: IOPAMIDOL 100 ML BOTTLE IV ONE (09:28)
--- NOTE | 2020-10-14 13:04 | Discharge Summary ---
Discharge Provider Provider Patient information: Note initiated : 10/14/20 at 12:55 pm Service Date, if different from initiated Date: [] Patient: Agustin Goldsmith 65 y/o M admitted on 10/07/20 for Abdominal pain. Chief Complaint: [] Date of admission: 10/07/20 18:35 Discharge date: 10/14/20 Primary care physician: Ngozi Swenson DO Admitting clinician: Cr Deluca Consults: 10/07/20 Consult to Physician [CONS] Stat Comment: Consulting Provider: Cr Deluca Reason For Exam: Physician to Consult Attending physician on discharge: Cr Deluca Discharging clinician: Cr Deluca COURSE Hospital Course Hospital course: 65-year-old male who presented with history of hypogastric bilateral lower quadrant pain with increasing severity. Evaluation revealed large volume of free air and pelvic and right lower quadrant fluid. He also had inflammation of the sigmoid colon. He was admitted and treated with antibiotics. Follow-up CT showed early formation of small abscesses in the pelvis and right lower quadrant. He was continued on IV antibiotics and has gradually improved. His peak temperature has been and his peak white blood count was 13,000. At this time he feels well except for intermittent crampy pain. His free air has resolved and the fluid collections are slightly improved. Patient will be discharged home on oral antibiotics for 2 more weeks with follow-up CT in 1 week. He is advised that if his symptoms should worsen that he is to return to the hospital. The plan is to try to get him over this initial episode without operation. If he should worsen however he will have segmental resection and colostomy. Discharge diagnosis: Acute diverticulitis with abscess Secondary discharge diagnosis: Diabetes mellitus Hypertension Reason for admission: Acute diverticulitis Procedures: None Pertinent studies/significant findings: CT of abdomen and pelvis with contrast x2 Complications: None Time Spent with Patient Time attestation: Total time spent providing and/or coordinating discharge services: Physical Examination Vital Signs Vital signs: Temp Pulse Resp BP Pulse Ox 98.3 F 71 20 140/73 95 10/14/20 12:00 10/14/20 12:00 10/14/20 12:00 10/14/20 12:00 10/14/20 12:00 General physical appearance General physical exam: well developed, well nourished, no distress, no pain and obese Eyes Eye exam: PERRL and normal ocular movement ENT ENT exam: normal mucosa and no hearing loss Head Head exam IM: Present atraumatic, normal inspection and normocephalic Neck Neck exam: no masses, no bruits, trachea midline and no lymphadenopathy Cardiovascular Cardiovascular exam IM: Present normal rate and rhythm, RRR, +S1 and +S2; Absent JVD and tachycardia Respiratory Respiratory exam: normal expansion, normal respiratory effort and clear to auscultation Abdomen Abdomen: Present tender (Mild tenderness in right lower quadrant; normal bowel sounds; no distention) Integumentary Integumentary: Present no rash, no growths and no abnormal pigmentation Neurologic Neurologic: Present normal coordination and normal sensation Musculoskeletal Musculoskeletal: Present normal gait and normal posture Psychiatric Psychiatric: Present oriented to time, oriented to person, oriented to place, speech is normal and memory intact Discharge Plan Patient/Caregiver Discharge Instructions Activity: increase activity as tolerated Diet: Full Liquid Instructions: Full Liquid Diet (DC) Prescriptions: New oxycodone-acetaminophen [Endocet] 10-325 mg Tablet 1 tab PO Q4H PRN (Reason: Pain) Qty: 40 RF: 0 promethazine 25 mg Tablet 25 mg PO Q4H PRN (Reason: Nausea) Qty: 30 RF: 0 levofloxacin [levofloxacin] 750 MG tablet 750 mg PO DAILY Qty: 15 RF: 0 metronidazole [Flagyl] 500 mg tablet 500 mg PO TID Qty: 45 RF: 0 Continued hydrochlorothiazide 50 mg tablet See Rx Instructions .ROUTE .COMPLEX Qty: 30 RF: 6 gemfibrozil 600 mg tablet 600 mg PO QAM Qty: 90 RF: 1 levothyroxine 50 mcg tablet 50 mcg PO QDAY Qty: 90 RF: 1 Jardiance 25 mg tablet See Rx Instructions .ROUTE .COMPLEX Qty: 30 RF: 2 losartan 50 mg tablet See Rx Instructions .ROUTE .COMPLEX Qty: 30 RF: 1 glipizide-metformin 2.5-250 mg tablet 2 tab PO BID Qty: 120 RF: 2 bupropion HCl [Wellbutrin XL] 300 mg tablet extended release 24 hr 450 mg PO QAM Qty: 90 RF: 0 Follow Up Plan Follow up with: Ngozi Swenson DO [Primary Care Provider] - Patient Disposition: Home, Self-Care Plan of Treatment: Treatment with metronidazole and levofloxacin x2 weeks as outpatient Follow-up in the office in 1 week Prognosis: Good Rehab Potential: Good I certify that the patient requires SNF services: No Overall status at discharge: patient is progressing back to baseline Pending Pending Pending: Resuscitation Status Full Code Diet Clear Liquid Diet Start Lakesha Josh 8 162 Bupropion HCl (Bupropion 150 Mg Tab.Xl.24h) 450 mg PO QAM MAE Last Admin: 10/14/20 08:49 Dose: 450 mg Documented by: Admin: 10/13/20 08:57 Dose: 450 mg Documented by: Admin: 10/12/20 07:57 Dose: 450 mg Documented by: Admin: 10/11/20 08:01 Dose: 450 mg Documented by: Admin: 10/10/20 08:38 Dose: 450 mg Documented by: Admin: 10/09/20 07:39 Dose: 450 mg Documented by: Admin: 10/08/20 09:18 Dose: 450 mg Documented by: FMF Diagnostic Test (Pha) (Accu-Chek 1 Each Strip) 1 each FS Q6 MAE; Protocol Last Admin: 10/14/20 06:14 Dose: 1 each Documented by: DULCE MARIA Admin: 10/13/20 23:18 Dose: 1 each Documented by: DULCE MARIA Admin: 10/13/20 17:05 Dose: 1 each Documented by: Admin: 10/13/20 12:02 Dose: 1 each Documented by: Admin: 10/13/20 05:15 Dose: 1 each Documented by: DULCE MARIA Admin: 10/13/20 00:00 Dose: 1 each Documented by: DULCE MARIA Admin: 10/12/20 17:34 Dose: 1 each Documented by: Admin: 10/12/20 11:37 Dose: 1 each Documented by: Admin: 10/12/20 05:58 Dose: 1 each Documented by: DULCE MARIA Admin: 10/12/20 00:01 Dose: 1 each Documented by: DULCE MARIA Admin: 10/11/20 17:07 Dose: 1 each Documented by: Admin: 10/11/20 12:51 Dose: 1 each Documented by: Admin: 10/11/20 05:45 Dose: 1 each Documented by: DULCE MARIA Admin: 10/10/20 23:37 Dose: 1 each Documented by: DULCE MARIA Admin: 10/10/20 17:01 Dose: 1 each Documented by: Admin: 10/10/20 11:54 Dose: 1 each Documented by: Admin: 10/10/20 05:36 Dose: 1 each Documented by: Admin: 10/09/20 23:29 Dose: 1 each Documented by: Admin: 10/09/20 17:17 Dose: 1 each Documented by: Admin: 10/09/20 11:35 Dose: 1 each Documented by: Admin: 10/09/20 05:52 Dose: 1 each Documented by: Admin: 10/08/20 23:40 Dose: 1 each Documented by: Admin: 10/08/20 17:44 Dose: 1 each Documented by: Admin: 10/08/20 11:41 Dose: 1 each Documented by: Admin: 10/08/20 05:51 Dose: 1 each Documented by: Admin: 10/07/20 23:51 Dose: 1 each Documented by: Admin: 10/07/20 20:39 Dose: 1 each Documented by: BLAINE Hydromorphone HCl (Hydromorphone 0.5 Mg/0.5 Ml Syringe) 0.5 mg IV Q2HP PRN; Protocol PRN Reason: Per Pain Protocol Last Admin: 10/14/20 06:19 Dose: 0.5 mg Documented by: DULCE MARIA Admin: 10/13/20 18:37 Dose: 0.5 mg Documented by: DULCE MARIA Admin: 10/12/20 21:22 Dose: 0.5 mg Documented by: [email or web address] Admin: 10/12/20 08:11 Dose: 0.5 mg Documented by: Admin: 10/12/20 00:02 Dose: 0.5 mg Documented by: DULCE MARIA Admin: 10/11/20 20:26 Dose: 0.5 mg Documented by: [email or web address] Admin: 10/11/20 17:06 Dose: 0.5 mg Documented by: [email or web address] Admin: 10/11/20 08:31 Dose: 0.5 mg Documented by: [email or web address] Admin: 10/11/20 00:38 Dose: 0.5 mg Documented by: DULCE MARIA Admin: 10/10/20 18:48 Dose: 0.5 mg Documented by: DULCE MARIA Admin: 10/10/20 03:53 Dose: 0.5 mg Documented by: Admin: 10/09/20 19:06 Dose: 0.5 mg Documented by: Admin: 10/09/20 12:25 Dose: 0.5 mg Documented by: Admin: 10/09/20 07:37 Dose: 0.5 mg Documented by: Admin: 10/09/20 03:42 Dose: 0.5 mg Documented by: [email or web address] Admin: 10/08/20 19:52 Dose: 0.5 mg Documented by: [email or web address] Admin: 10/08/20 15:26 Dose: 0.5 mg Documented by: Admin: 10/08/20 07:22 Dose: 0.5 mg Documented by: Admin: 10/08/20 04:18 Dose: 0.5 mg Documented by: [email or web address] Admin: 10/07/20 23:57 Dose: 0.5 mg Documented by: [email or web address] Admin: 10/07/20 20:48 Dose: 0.5 mg Documented by: BLAINE Sodium Chloride (Sodium Chloride 0.9%) 1,000 mls @ 125 mls/hr IV .Q8H MAE Last Infusion: 10/14/20 12:51 Dose: 0 mls/hr Documented by: Admin: 10/13/20 23:13 Dose: 125 mls/hr Documented by: [email or web address] Admin: 10/13/20 14:43 Dose: Not Given Documented by: Infusion: 10/13/20 11:25 Dose: 100 mls/hr Documented by: Admin: 10/13/20 07:07 Dose: Not Given Documented by: Admin: 10/13/20 06:55 Dose: Not Given Documented by: Infusion: 10/12/20 20:48 Dose: 0 mls/hr Documented by: Admin: 10/12/20 14:49 Dose: Not Given Documented by: Admin: 10/12/20 12:48 Dose: 125 mls/hr Documented by: Infusion: 10/12/20 11:27 Dose: 0 mls/hr Documented by: Admin: 10/12/20 07:07 Dose: Not Given Documented by: Admin: 10/12/20 04:18 Dose: 125 mls/hr Documented by: DULCE MARIA Infusion: 10/12/20 04:18 Dose: 125 mls/hr Documented by: DULCE MARIA Admin: 10/11/20 20:24 Dose: 125 mls/hr Documented by: DULCE MARIA Infusion: 10/11/20 20:24 Dose: 125 mls/hr Documented by: DULCE MARIA Admin: 10/11/20 17:06 Dose: Not Given Documented by: [email or web address] Admin: 10/11/20 12:37 Dose: 125 mls/hr Documented by: Infusion: 10/11/20 10:46 Dose: 125 mls/hr Documented by: Admin: 10/11/20 02:46 Dose: 125 mls/hr Documented by: DULCE MARIA Infusion: 10/11/20 02:45 Dose: 125 mls/hr Documented by: DULCE MARIA Admin: 10/10/20 18:45 Dose: 125 mls/hr Documented by: DULCE MARIA Infusion: 10/10/20 15:37 Dose: 125 mls/hr Documented by: DULCE MARIA Admin: 10/10/20 07:37 Dose: 125 mls/hr Documented by: Infusion: 10/10/20 07:30 Dose: 125 mls/hr Documented by: Admin: 10/09/20 23:30 Dose: 125 mls/hr Documented by: Infusion: 10/09/20 23:30 Dose: 125 mls/hr Documented by: Admin: 10/09/20 15:41 Dose: 125 mls/hr Documented by: Infusion: 10/09/20 15:36 Dose: 125 mls/hr Documented by: Admin: 10/09/20 07:36 Dose: 125 mls/hr Documented by: Infusion: 10/09/20 07:27 Dose: 125 mls/hr Documented by: Admin: 10/08/20 23:27 Dose: 125 mls/hr Documented by: Infusion: 10/08/20 23:22 Dose: 125 mls/hr Documented by: Admin: 10/08/20 15:22 Dose: 125 mls/hr Documented by: Infusion: 10/08/20 15:16 Dose: 125 mls/hr Documented by: Admin: 10/08/20 07:16 Dose: 125 mls/hr Documented by: Infusion: 10/08/20 07:16 Dose: 125 mls/hr Documented by: Admin: 10/07/20 23:48 Dose: 125 mls/hr Documented by: Infusion: 10/07/20 23:48 Dose: 125 mls/hr Documented by: Infusion: 10/07/20 18:32 Dose: 125 mls/hr Documented by: Admin: 10/07/20 17:00 Dose: 125 mls/hr Documented by: ELEONORA Levofloxacin (Levaquin) 750 mg in 150 mls @ 100 mls/hr IV Q24H MAE Last Admin: 10/14/20 08:48 Dose: 100 mls/hr Documented by: Infusion: 10/13/20 10:25 Dose: 0 mls/hr Documented by: Admin: 10/13/20 08:55 Dose: 100 mls/hr Documented by: Infusion: 10/12/20 23:02 Dose: 0 mls/hr Documented by: DULCE MARIA Admin: 10/12/20 21:19 Dose: 100 mls/hr Documented by: DULCE MARIA Metronidazole (Flagyl) 500 mg in 100 mls @ 100 mls/hr IV Q6H MAE; Protocol Last Infusion: 10/14/20 07:43 Dose: 0 mls/hr Documented by: Admin: 10/14/20 06:11 Dose: 100 mls/hr Documented by: DULCE MARIA Infusion: 10/14/20 00:13 Dose: 100 mls/hr Documented by: DULCE MARIA Admin: 10/13/20 23:13 Dose: 100 mls/hr Documented by: DULCE MARIA Infusion: 10/13/20 18:05 Dose: 0 mls/hr Documented by: Admin: 10/13/20 17:08 Dose: 100 mls/hr Documented by: Infusion: 10/13/20 13:03 Dose: 0 mls/hr Documented by: Admin: 10/13/20 12:03 Dose: 100 mls/hr Documented by: Infusion: 10/13/20 06:32 Dose: 0 mls/hr Documented by: Admin: 10/13/20 05:32 Dose: 100 mls/hr Documented by: DULCE MARIA Infusion: 10/13/20 00:00 Dose: 0 mls/hr Documented by: DULCE MARIA Admin: 10/12/20 23:00 Dose: 100 mls/hr Documented by: DULCE MARIA Insulin Human Lispro (Insulin Lispro 1 Unit/0.01 Ml Unit) 0 unit SQ Q6H MAE; Protocol Last Admin: 10/14/20 06:14 Dose: Not Given Documented by: DULCE MARIA Admin: 10/13/20 23:18 Dose: Not Given Documented by: DULCE MARIA Admin: 10/13/20 17:08 Dose: Not Given Documented by: Admin: 10/13/20 12:10 Dose: 6 unit Documented by: Admin: 10/13/20 05:15 Dose: Not Given Documented by: DULCE MARIA Admin: 10/13/20 00:03 Dose: Not Given Documented by: DULCE MARIA Admin: 10/12/20 17:36 Dose: Not Given Documented by: Admin: 10/12/20 11:38 Dose: Not Given Documented by: Admin: 10/12/20 05:58 Dose: 2 unit Documented by: DULCE MARIA Admin: 10/12/20 00:05 Dose: 2 unit Documented by: DULCE MARIA Admin: 10/11/20 17:07 Dose: Not Given Documented by: Admin: 10/11/20 12:51 Dose: Not Given Documented by: Admin: 10/11/20 05:45 Dose: Not Given Documented by: DULCE MARIA Admin: 10/10/20 23:37 Dose: Not Given Documented by: DULCE MARIA Admin: 10/10/20 17:06 Dose: 4 unit Documented by: Admin: 10/10/20 12:00 Dose: 2 unit Documented by: Admin: 10/10/20 05:36 Dose: Not Given Documented by: Admin: 10/09/20 23:30 Dose: Not Given Documented by: Admin: 10/09/20 17:17 Dose: Not Given Documented by: Admin: 10/09/20 11:37 Dose: Not Given Documented by: Admin: 10/09/20 05:52 Dose: Not Given Documented by: Admin: 10/08/20 23:40 Dose: Not Given Documented by: Admin: 10/08/20 17:46 Dose: Not Given Documented by: Admin: 10/08/20 11:44 Dose: Not Given Documented by: Admin: 10/08/20 05:57 Dose: 4 unit Documented by: Admin: 10/07/20 23:57 Dose: 2 unit Documented by: BLAINE Levothyroxine Sodium (Levothy[facility]ine 50 Mcg Tablet) [facility] Admin: 10/14/20 08:49 Dose: 50 mcg Documented by: Admin: 10/13/20 08:58 Dose: 50 mcg Documented by: Admin: 10/12/20 07:57 Dose: 50 mcg Documented by: Admin: 10/11/20 08:01 Dose: 50 mcg Documented by: Admin: 10/10/20 08:38 Dose: 50 mcg Documented by: Admin: 10/09/20 07:39 Dose: 50 mcg Documented by: Admin: 10/08/20 09:18 Dose: 50 mcg Documented by: KASI Losartan Potassium (Losartan 50 Mg Tablet) 50 mg PO [facility] Last Admin: 10/14/20 08:49 Dose: 50 mg Documented by: Admin: 10/13/20 08:58 Dose: 50 mg Documented by: Admin: 10/12/20 07:57 Dose: 50 mg Documented by: Admin: 10/11/20 08:02 Dose: 50 mg Documented by: Admin: 10/10/20 08:38 Dose: 50 mg Documented by: Admin: 10/09/20 12:25 Dose: 50 mg Documented by: BRIONNA Morphine Sulfate (Morphine 4 Mg/Ml Vial) 4 mg IV Q2HP PRN; Protocol PRN Reason: Per Pain Protocol Last Admin: 10/07/20 18:27 Dose: 4 mg Documented by: ELEONORA Pantoprazole S[facility] ([facility] 40 Mg Tablet) [facility]: 10/14/20 07:43 Dose: 40 mg Documented by: Admin: 10/13/20 08:58 Dose: 40 mg Documented by: Admin: 10/12/20 07:57 Dose: 40 mg Documented by: Admin: 10/11/20 07:55 Dose: 40 mg Documented by: Admin: 10/10/20 07:35 Dose: 40 mg Documented by: Admin: 10/09/20 07:39 Dose: 40 mg Documented by: Admin: 10/08/20 07:16 Dose: 40 mg Documented by: KASI Sodium Chloride (0.9 % Sodium Chloride 10 Ml Syringe) 10 ml IV Q8 [facility] Admin: 10/14/20 06:14 Dose: Not Given Documented by: DULCE MARIA Admin: 10/13/20 22:05 Dose: Not Given Documented by: DULCE MARIA Admin: 10/13/20 12:22 Dose: Not Given Documented by: Admin: 10/13/20 05:33 Dose: Not Given Documented by: DULCE MARIA Admin: 10/12/20 21:22 Dose: Not Given Documented by: DULCE MARIA Admin: 10/12/20 12:19 Dose: Not Given Documented by: Admin: 10/12/20 04:29 Dose: Not Given Documented by: DULCE MARIA Admin: 10/11/20 21:28 Dose: Not Given Documented by: DULCE MARIA Admin: 10/11/20 14:00 Dose: Not Given Documented by: Admin: 10/11/20 05:03 Dose: Not Given Documented by: DULCE MARIA Admin: 10/10/20 21:05 Dose: Not Given Documented by: DULCE MARIA Admin: 10/10/20 13:44 Dose: Not Given Documented by: Admin: 10/10/20 05:36 Dose: Not Given Documented by: Admin: 10/09/20 21:20 Dose: Not Given Documented by: Admin: 10/09/20 12:20 Dose: Not Given Documented by: Admin: 10/09/20 06:19 Dose: Not Given Documented by: Admin: 10/08/20 23:12 Dose: Not Given Documented by: [email or web address] Admin: 10/08/20 13:24 Dose: Not Given Documented by: Admin: 10/08/20 05:57 Dose: Not Given Documented by: Admin: 10/07/20 20:43 Dose: Not Given Documented by: BLAINE Shift Summary 10/14/20 03:41 Shift Summary by Pablo Benavides admitted for Perforated Diverticuli, A&OX4, VSS, RA, 20G LW infusing NS @125mls/hr with intermittent ABO, voids in BR, passing flatus, BM yesterday, amb. halls, gait steady, up ad aliza in room, not tolerating clear liquid diet well d/t feeling bloated with very little intake, no nausea, pleasant and cooperative with cares CT ABD on admit showed sigmoid diverticulitis w/perforation, CT ABD on 10/11 showed perforation sealed but has abscess to RLQ/Umbilicus area per report and Radiology report pt started on ABO 10/12 so is wanting to check labs prior to f/u CT, pt will either go home with PO ABO or have PICC placed with outpt. IV ABO Initialized on 10/14/20 03:41 - END OF NOTE
[2020-10-14] MEDS: 0.9 % SODIUM CHLORIDE 1,000 ML IV SCH (13:58)
--- NOTE | 2020-10-14 14:01 | Cat Scan Report ---
CLINICAL INFORMATION: Follow-up diverticulitis-abdominal pain COMPARISON: 10/11/2020 TECHNIQUE: Following enteric contrast, 80 cc of Isovue-370 were injected intravenously, and 60 seconds later, 0.625 mm helical slices were obtained from the mid heart through the subtrochanteric regions. Following reconstruction, 2.5 mm sagittal, coronal and axial reformatted images were processed and reviewed at bone, lung and soft tissue windows. Five minutes later, 0.625 mm helical slices were obtained from the mid heart through the kidneys and viewed at soft tissue windows.The exam was performed using radiation dose optimization techniques including, but not limited to, automated exposure control, adjustment of the mA and/or kV according to patient size and use of iterative reconstruction technique. FINDINGS: Lung bases show moderate right and small left pleural effusion history of increased from previous CT. There is subsegmental atelectasis posterior right lower lobe with minimal atelectasis posterior left lower lobe. Heart is normal in size with heavy calcific plaque seen in the left main proximal LAD and mid right coronary arteries. Abdominal images show the gallbladder and bile ducts, liver, both kidneys, adrenal glands, spleen, pancreas, and aorta including aortic branches be normal in size configuration and attenuation without focal lesion. No free air or adenopathy. Pelvic images show prostate, seminal vesicles and urinary bladder normal. Severe diverticulitis involving the entire sigmoid colon featuring asymmetric wall thickening, inflamed diverticuli and agree sigmoid phlegmon seen as before. Multiple abscesses within the central pelvis and right lower quadrant have increased in size modestly since the comparison study three days ago. The largest, a bilobed fluid collection, just superior to the urinary bladder dome & 11 x 3.4 cm. A 3 cm abscess is seen in the anterior perirectal soft tissues with a 6.5 cm x 3 cm abscess in the anterior inferior pericecal region. A 10 cm abscess in the posterior pericecal region. The remaining large bowel, small bowel and stomach are normal. Bone windows show only degenerative change IMPRESSION: Severe sigmoid diverticulitis located by multiple abscesses in the right lower quadrant and central pelvis. The abscesses have increased in size since the comparison CT three days prior. Moderate right and small left pleural effusion which have increased since prior exam. Bilateral atelectasis both posterior lower lobes Heavy calcific plaque in the left main, proximal LAD coronary arteries Interpreted and Authenticated by: Azar Tobar 10/14/20
== END 2020-10-14 14:40 | disposition home or self-care (01) | DRG 392 ==
LOC: ED 13:20 → MEDSUR 18:35
PROVIDERS: ADMIT Family Medicine Adult Medicine; ATTEND Family Medicine Adult Medicine

== ENCOUNTER 2020-10-21 12:03 | Inpatient (IN) ==
[2020-10-21] MEDS ORDERED: ONDANSETRON 4 MG/2 ML VIAL IV PRN (12:51)
[2020-10-21] MEDS ORDERED: HYDROmorphone 1 MG/ML SYRINGE IV PRN (12:56)
[2020-10-21] MEDS: 0.9 % SODIUM CHLORIDE 1,000 ML IV SCH ×2 (13:25→22:09)
[2020-10-21] MEDS: metroNIDAZOLE 500 MG/100 ML BAG IV SCH ×2 (13:25→19:19)
[2020-10-21] MEDS: ACETAMINOPHEN 1,000 MG/100 ML BAG IV SCH ×2 (14:05→20:21)
[2020-10-21 14:08] LABS: Hemoglobin 14.5 g/dL (13.5-16.5); Mean Cell Volume 83.3 fL (80.0-100.0); Mean Platelet Volume 9.9 fL (7.4-10.4); Platelet Count 445 K/mcL (140-440); RBC 5.28 M/mcL (4.50-5.90); Red Cell Distribution Width 15.7 % (11.5-14.5); WBC 18.4 K/mcL (4.5-11.0)
[2020-10-21 14:23] LABS: ALT/SGPT 11 U/L (<40); AST/SGOT 15 U/L (<40); Albumin 3.2 gm/dL (3.2-5.2); Albumin/Globulin Ratio 0.9 (1.0-2.3); Alkaline Phosphatase 85 U/L (39-117); Bilirubin,Direct < 0.2 mg/dL (0-0.3); Bilirubin,Total 0.4 mg/dL (0.1-1.0); Blood Urea Nitrogen 17 mg/dL (8-23); Calcium 8.8 mg/dL (8.6-10.4); Carbon Dioxide 25 mmol/L (22-30); Chloride 94 mmol/L (96-108); Globulin 3.5 gm/dL (2.2-3.7); Glomerular Filtration Rate 93; Glucose 139 mg/dL (70-105); Lactate Dehydrogenase 198 U/L (135-225); Phosphorous 3.1 mg/dL (2.5-4.5); Triglycerides 112 mg/dL (<150); Uric Acid 5.3 mg/dL (2.5-8.0)
[2020-10-21 14:32] LABS: Partial Thromboplastin Time 31.9 sec (20.0-37.0)
[2020-10-21 14:33] LABS: INR 1.2 (0.9-1.1)
[2020-10-21] MEDS: MEROPENEM 1 GM in 0.9 % SODIUM CHLORIDE 50 ML IV SCH ×2 (14:38→22:08)
--- NOTE | 2020-10-21 14:42 | General Surg History&Physical ---
HPI History of Present Illness Patient information: Note initiated : 10/21/20 at 2:29 pm Service Date, if different from initiated Date: [] Patient: Agustin Goldsmith 65 y/o M admitted on 10/21/20 for Diverticulitis with Abscess. Chief Complaint: [] History of present illness: Mr. Goldsmith is a 65 year old M admitted with progressive diverticulitis with abscess. The patient presented on 07 October with a history of hypogastric bilateral lower quadrant pain. He was noted to have a large volume of free air with pelvic and right lower quadrant fluid with i nflammation of the sigmoid colon. He was admitted and treated with antibiotics. Follow-up CT 3 days later showed early formation of small abscesses in the pelvis and right lower quadrant. Patient was continued on antibiotics and gradually improved. He was afebrile and his white count was only 13,000. His at free air had resolved and the fluid collections were improved. He was discharged home on oral antibiotics for 2 more weeks. He had a CT done however after 1 week and this showed progression of the inflammation of the sigmoid colon with marked increase in size of his abscesses. He is felt to have had failure to respond to outpatient treatment and he was admitted with a plan to do segmental resection with colostomy and drainage of his pelvic abscesses. Patient is counseled of this in the presence of the sister and he agrees to proceed. He looks clinically ill at this time and is diaphoretic though he is afebrile. Constitutional Constitutional: Present anorexia, chills, excessive sweating, fatigue, lethargy, malaise, night sweats and weakness EENT Ears: Present decreased hearing Nose, mouth and throat: Present abnormal hearing and dizziness Cardiovascular Cardiovascular: Present lightheadedness and rapid heart rate; Absent chest pain Respiratory Respiratory: Absent cough, dyspnea, wheezing, pain on inspirtation and chest congestion Gastrointestinal Gastrointestinal: Present abdominal pain, bloating, change in bowel habits, cramping, early satiety, heartburn and nausea Genitourinary Genitourinary: change in urinary stream and dysuria Musculoskeletal Musculoskeletal: Present arthralgias and myalgias Integumentary Integumentary: Absent changing lesions and pruritus Neurological Neurological: Present abnormal hearing, disequilibrium, dizziness and weakness Psychiatric Psychiatric: Present depression Endocrine Endocrine: Present excessive sweating Hematologic/Lymphatic Hematologic/Lymphatic: Absent easy bleeding, easy bruising and lymphadenopathy Allergic/Immunologic Allergic/Immunologic: Absent tongue swelling, throat swelling, uticaria and wheezing PFSH PFSH All Active Problems (Updated 10/21/20 @ 14:41 by Cr Deluca MD) Intra-abdominal abscess (Acute) Acute diverticulitis (Acute) Perforated diverticulum of large intestine (Acute) Abdominal distention (Acute) Abdominal pain (Acute) Irregular heart rhythm (Acute) Medicare welcome visit (Acute) Encounter for tobacco use cessation counseling (Acute) Chewing tobacco use (Chronic) Encounter for Health Maintenance Examination in Adult (Chronic) Hypothyroid (Chronic) Exostosis (Chronic) Wellness examination (Chronic) H/O carbon monoxide poisoning (Chronic ~07/23/11) DMII (diabetes mellitus, type 2) (Chronic) Marijuana use (Chronic) History of tobacco use (Chronic) Stomach ulcer (Chronic ~08/22/71) Hyperlipidemia (Chronic ~09/22/91) Hypertension, essential (Chronic ~09/22/91) Depression (Chronic ~06/26/91) Anxiety (Chronic ~04/23/91) Medical History Anxiety (~04/23/91) Chewing tobacco use Depression (~06/26/91) DMII (diabetes mellitus, type 2) dx 2009 Encounter for Health Maintenance Examination in Adult 06/20/17 Encounter for tobacco use cessation counseling H/O carbon monoxide poisoning (~07/23/11) at [place], 2012 History of tobacco use Hyperlipidemia (~09/22/91) Hypertension, essential (~09/22/91) Hypothyroid Irregular heart rhythm Marijuana use Medicare welcome visit Stomach ulcer (~08/22/71) Wellness examination Surgical History H/O colonoscopy (~2009) Dr. Alford, 2009 repeat Q5 years 06/2016 3 polyps, repeat 5 years H/O knee surgery (~2001) History of esophagogastroduodenoscopy (EGD) (~1991) History of thyroid surgery (~1959) Thyroglossal duct excision at 5 years old Family History Grandmother Arthritis Paternal Mother Cancer Alcohol abuse Father Colon cancer Hypertension, essential Heart disease Hypertensive renal disease Sister Hypertension, essential Family/Other Thyroid disease Cousin Social History marital status: single alcohol intake frequency: a few times a week substance use type: marijuana MEDS/ALLERGIES Home Medications and Allergies Home Medications Medication Instructions Recorded Confirmed Type hydrochlorothiazide 50 mg tablet See Rx Instructions .ROUTE 05/28/20 10/21/20 Rx .COMPLEX #30 tab gemfibrozil 600 mg tablet 600 mg PO QAM #90 tab 07/29/20 10/21/20 Rx levothyroxine 50 mcg tablet 50 mcg PO QDAY #90 tab 07/29/20 10/21/20 Rx bupropion HCl 300 mg 24 hr tablet, 450 mg PO QAM #90 tab 08/20/20 10/21/20 Rx extended release empagliflozin 25 mg tablet See Rx Instructions .ROUTE 09/02/20 10/21/20 Rx .COMPLEX #30 tab glipizide 2.5 mg-metformin 250 mg 2 tab PO BID #120 tab 09/30/20 10/21/20 Rx tablet losartan 50 mg tablet See Rx Instructions .ROUTE 09/30/20 10/21/20 Rx .COMPLEX #30 tab levofloxacin 750 mg PO DAILY #15 tab 10/14/20 10/21/20 Rx metronidazole [Flagyl] 500 mg PO TID #45 tab 10/14/20 10/21/20 Rx oxycodone-acetaminophen [Endocet] 1 tab PO Q4H PRN #40 tab 10/14/20 10/21/20 Rx promethazine 25 mg PO Q4H PRN #30 tab 10/14/20 10/21/20 Rx Allergies Allergy/AdvReac Type Severity Reaction Status Date / Time No Known Drug Allergies Allergy Verified 10/21/20 12:13 Physical Examination Vital Signs Vital signs: Temp Pulse Resp BP Pulse Ox 98 F 109 H 16 115/75 94 10/21/20 12:16 10/21/20 12:16 10/21/20 12:16 10/21/20 12:16 10/21/20 12:16 General physical appearance General physical exam: well developed, well nourished, no distress, no pain and obese Eyes Eye exam: PERRL and normal ocular movement ENT ENT exam: normal mucosa and no hearing loss Head Head exam IM: Present atraumatic, normal inspection and normocephalic Neck Neck exam: no masses, no bruits, trachea midline and no lymphadenopathy Cardiovascular Cardiovascular exam IM: Present irregular rhythm, +S1, +S2 and tachycardia; Absent JVD Respiratory Respiratory exam: normal expansion, normal respiratory effort and clear to auscultation Abdomen Abdomen: Present tender (tenderness in right lower quadrant; fullness in the right lower quadrant with tenderness and guarding), bowel sounds (Hypoactive bowel sounds) and distended (Moderate diffuse tenderness of abdomen) Integumentary Integumentary: Present no rash, no growths and no abnormal pigmentation Neurologic Neurologic: Present normal coordination and normal sensation Musculoskeletal Musculoskeletal: Present normal gait and normal posture Psychiatric Psychiatric: Present oriented to time, oriented to person, oriented to place, speech is normal and memory intact Results Labs Result diagrams: 10/21/20 13:27 10/21/20 13:27 Labs: Abnormal lab results 10/21/20 10/21/20 Range/Units 13:27 13:27 WBC 18.4 H (4.5-11.0) K/mcL RDW 15.7 H (11.5-14.5) % Plt Count 445 H (140-440) K/mcL Potassium 3.2 L (3.3-5.1) mmol/L Chloride 94 L (96-108) mmol/L Glucose 139 H (70-105) mg/dL Albumin/Globulin Ratio 0.9 L (1.0-2.3) Diabetes panel 10/21/20 Range/Units 13:27 Sodium 133 (133-145) mmol/L Potassium 3.2 L (3.3-5.1) mmol/L Chloride 94 L (96-108) mmol/L Carbon Dioxide 25 (22-30) mmol/L BUN 17 (8-23) mg/dL Creatinine 0.8 (0.7-1.2) mg/dL Glucose 139 H (70-105) mg/dL Calcium 8.8 (8.6-10.4) mg/dL AST 15 (<40) U/L ALT 11 (<40) U/L Alkaline Phosphatase 85 (39-117) U/L Total Protein 6.7 (5.9-8.4) gm/dL Albumin 3.2 (3.2-5.2) gm/dL Triglycerides 112 (<150) mg/dL Calcium panel 10/21/20 Range/Units 13:27 Calcium 8.8 (8.6-10.4) mg/dL Phosphorus 3.1 (2.5-4.5) mg/dL Albumin 3.2 (3.2-5.2) gm/dL Pituitary panel 10/21/20 Range/Units 13:27 Sodium 133 (133-145) mmol/L Potassium 3.2 L (3.3-5.1) mmol/L Chloride 94 L (96-108) mmol/L Carbon Dioxide 25 (22-30) mmol/L BUN 17 (8-23) mg/dL Creatinine 0.8 (0.7-1.2) mg/dL Glucose 139 H (70-105) mg/dL Calcium 8.8 (8.6-10.4) mg/dL Adrenal panel 10/21/20 Range/Units 13:27 Sodium 133 (133-145) mmol/L Potassium 3.2 L (3.3-5.1) mmol/L Chloride 94 L (96-108) mmol/L Carbon Dioxide 25 (22-30) mmol/L BUN 17 (8-23) mg/dL Creatinine 0.8 (0.7-1.2) mg/dL Glucose 139 H (70-105) mg/dL Calcium 8.8 (8.6-10.4) mg/dL Total Bilirubin 0.4 (0.1-1.0) mg/dL AST 15 (<40) U/L ALT 11 (<40) U/L Alkaline Phosphatase 85 (39-117) U/L Total Protein 6.7 (5.9-8.4) gm/dL Albumin 3.2 (3.2-5.2) gm/dL All other labs normal. A/P Assessment and plan (1) Acute diverticulitis: Status: Acute (2) Intra-abdominal abscess: Status: Acute (3) DMII (diabetes mellitus, type 2): Status: Chronic Comment: dx 2009 Qualifiers: Diabetes mellitus complication status: without complication Diabetes mellitus mcc insulin use: without mcc use Qualified Code(s): E11.9 - Type 2 diabetes mellitus without complications (4) Hypertension, essential: Status: Chronic (5) Depression: Status: Chronic Qualifiers: Depression Type: major depressive disorder Active/Remission status: currently active Major depression episode severity: moderate Major depression recurrence: recurrent Qualified Code(s): F33.1 - Major depressive disorder, recurrent, moderate Narrative A/P Narrative: Patient is admitted and will be started on meropenem and metronidazole. He will be given IV hydration. He is scheduled for laparotomy with sigmoid colectomy and drainage of abscess tomorrow. He is advised that he will need to have short-term colostomy until the infection is cleared. Time Spent With Patient Time: Total time spent is greater than 50% in coordination of care (as documented) at patient's floor/unit and/or counseling patient:
[2020-10-21 14:44] LABS: Anisocytosis 1+ (None Seen); Band Neutrophils % 3 % (0-10); Lymphocytes % 4 % (15-49); Monocytes % (Manual) 3 % (1-12); Platelet Estimate INCREASED (Normal); RBC Morphology ABNORMAL (Normal); Segmented Neutrophils % 89 % (38-78)
[2020-10-21 15:04] LABS: Blast Cells 1 % (NONE SEEN)
--- NOTE | 2020-10-21 15:57 | XRay Report ---
HISTORY: Preop, diverticulitis with abscess FINDINGS: The lungs are clear but incompletely expanded. The heart size and pulmonary vasculature are normal. No pleural effusion is present and there is no evidence of adenopathy. 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 Comparison with the prior exam from 10/08/20 shows a better inspiration on today's exam. IMPRESSION: Normal exam Interpreted and Authenticated by: Lexa Edmonds 10/21/20
[2020-10-21 16:29] LABS: Appearance,Urine CLEAR (Clear); Bilirubin,Urine Negative (Negative); Color,Urine YELLOW; Culture Indicated,Urine No; Glucose,Urine (UA) >=500 mg/dL (Negative); Ketones,Urine Negative (Negative); Leukocyte Esterase,Urine Negative /ug (Negative); Nitrate,Urine Negative (Negative); Protein,Urine Negative (Negative); Specific Gravity,Urine 1.016 (1.000-1.035); Urine Blood 0.03 mg/dL (Negative); Urine RBC 4 /hpf (0-3); Urine Squamous Epithelial Cell 0 /hpf (0-4); Urine WBC 1 /hpf (0-4); Urobilinogen,Urine Negative
[2020-10-21] MEDS: POTASSIUM PHOSPHATE 40 MEQ in DEXTROSE 5% IN WATER 500 ML IV SCH ×2 (16:39→22:53)
[2020-10-21] MEDS: PANTOPRAZOLE 40 MG VIAL IV SCH (17:36)
[2020-10-21] MEDS: INSULIN LISPRO 1 UNIT/0.01 ML UNIT SQ SCH (17:40)
[2020-10-22] MEDS: metroNIDAZOLE 500 MG/100 ML BAG IV SCH ×4 (00:47→19:43)
[2020-10-22] MEDS: INSULIN LISPRO 1 UNIT/0.01 ML UNIT SQ SCH ×4 (00:51→18:20)
[2020-10-22] MEDS: ACETAMINOPHEN 1,000 MG/100 ML BAG IV SCH ×2 (01:45→06:54)
[2020-10-22] MEDS: 0.9 % SODIUM CHLORIDE 1,000 ML IV SCH ×3 (02:09→16:03)
[2020-10-22] MEDS: MEROPENEM 1 GM in 0.9 % SODIUM CHLORIDE 50 ML IV SCH ×3 (05:48→22:27)
[2020-10-22 06:31] LABS: Basophils # (Auto) 0.06 K/mcL (0.00-0.20); Basophils % (Auto) 0.4 % (0.0-2.0); Eosinophils # (Auto) 0.02 K/mcL (0.00-0.70); Eosinophils % (Auto) 0.1 % (0.0-7.0); Hematocrit 42.7 % (41.0-55.0); Hemoglobin 13.6 g/dL (13.5-16.5); Lymphocytes # (Auto) 0.98 K/mcL (1.50-4.80); Mean Cell Volume 84.7 fL (80.0-100.0); Mean Corpuscular HGB Conc 31.9 g/dL (31.0-36.0); Mean Platelet Volume 9.4 fL (7.4-10.4); Monocytes # (Auto) 1.08 K/mcL (0.10-0.90); Monocytes % (Auto) 7.7 % (1.0-12.0); Neutrophils % (Auto) 84.8 % (38.0-78.0); Platelet Count 398 K/mcL (140-440); RBC 5.04 M/mcL (4.50-5.90); Red Cell Distribution Width 15.7 % (11.5-14.5)
[2020-10-22] MEDS: PANTOPRAZOLE 40 MG VIAL IV SCH ×2 (06:47→18:19)
[2020-10-22] MEDS: buPROPion 150 MG TAB.XL.24H PO SCH ×2 (06:47→07:14)
[2020-10-22] MEDS ORDERED: LEVOTHYROXINE 50 MCG TABLET PO SCH (07:30)
[2020-10-22] MEDS: POLYETHYLENE GLYCOL 3350 17 GM PACKET PO SCH ×2 (07:46→14:08)
[2020-10-22] MEDS ORDERED: IPRATROPIUM/ALBUTEROL 3 ML AMPUL.NEB NEB PRN ×2 (08:00→12:04)
[2020-10-22] MEDS ORDERED: SCOPOLAMINE 1 PATCH PATCH TOPICAL PRN (09:00)
[2020-10-22] MEDS ORDERED: SUGAMMADEX SODIUM 200 MG/2 ML VIAL IV ONE (09:45)
[2020-10-22] MEDS ORDERED: PROPOFOL 200 MG/20 ML VIAL IV ONE (09:45)
[2020-10-22] MEDS ORDERED: GLYCOPYRROLATE 0.2 MG/ML VIAL IV ONE (09:45)
[2020-10-22] MEDS ORDERED: SUCCINYLCHOLINE 20 MG/ML ML IV ONE (09:45)
[2020-10-22] MEDS ORDERED: KETOROLAC 30 MG/ML VIAL ONE (09:45)
[2020-10-22] MEDS ORDERED: DEXAMETHASONE 10 MG/ML VIAL ONE (09:45)
[2020-10-22] MEDS ORDERED: KETAMINE 50 MG/ML ML ONE (09:45)
[2020-10-22] MEDS ORDERED: ONDANSETRON 4 MG/2 ML VIAL ONE (09:45)
[2020-10-22] MEDS ORDERED: MIDAZOLAM 2 MG/2 ML VIAL ONE (09:45)
[2020-10-22] MEDS ORDERED: MAGNESIUM SULFATE 2 GM/50 ML BAG IV ONE (09:45)
[2020-10-22] MEDS ORDERED: LIDOCAINE HCL/PF 100 MG/5 ML SYRINGE IV ONE (09:45)
[2020-10-22] MEDS ORDERED: fentaNYL 250 MCG/5 ML VIAL IV ONE (09:45)
[2020-10-22] MEDS ORDERED: HYDROmorphone 0.5 MG/0.5 ML SYRINGE IV PRN (12:04)
[2020-10-22] MEDS ORDERED: BENZOCAINE/MENTHOL 1 LOZENGE PO PRN (12:04)
[2020-10-22] MEDS ORDERED: fentaNYL 100 MCG/2 ML VIAL IV PRN (12:04)
[2020-10-22] MEDS ORDERED: ACETAMINOPHEN 1,000 MG/100 ML BAG IV ONE (12:04)
[2020-10-22] MEDS ORDERED: LACTATED RINGERS 250 ML IV PRN (12:04)
[2020-10-22] MEDS ORDERED: FLUMAZENIL 0.1 MG/ML ML IV PRN (12:04)
[2020-10-22] MEDS ORDERED: NALOXONE HCL 0.4 MG/ML VIAL IV PRN (12:04)
[2020-10-22] MEDS ORDERED: ONDANSETRON 4 MG/2 ML VIAL IV PRN (12:04)
[2020-10-22] MEDS ORDERED: METHOCARBAMOL 1,000 MG/10 ML VIAL IV PRN (12:04)
[2020-10-22] MEDS ORDERED: LACTATED RINGERS 1,000 ML IV SCH (12:15)
[2020-10-22] MEDS ORDERED: BACITRACIN 50,000 UNIT VIAL IR ONE (12:34)
--- NOTE | 2020-10-22 13:06 | Brief Operative Note ---
Brief Operative Note Date of procedure: 10/22/20 Pre-op diagnosis: diverticulitis with abscess Post-op diagnosis: other (diverticulitis with multiple pelvic and RLQ abscesses) Procedure: SIGMOID COLECTOMY WITH COLOSTOMY AND DRAINAGE OF MULTIPLE PELVIC AND ABDOMINAL ABSCESSES Grafts/Implants: No (MARQUIS DRAIN X3) Anesthesia: GETA Findings: SEVERE SIGMOID DIVERTICULITIS WITH 4 PELVIC AND RLQ ABSCESSES Complications: none Surgeon: Cr Deluca Estimated blood loss (cc): 100 Specimens Removed/Pathology: other (SIGMOID COLON ;CULTURES OF ABSCESS FLUID ) Condition: stable Disposition: PACU
[2020-10-22] MEDS ORDERED: LORazepam 2 MG/ML VIAL IV PRN (13:17)
[2020-10-22] MEDS ORDERED: POLYETHYLENE GLYCOL 3350 17 GM PACKET PO SCH (18:00)
[2020-10-23] MEDS: HYDROmorphone 1 MG/ML SYRINGE IV PRN ×4 (00:02→17:12)
[2020-10-23] MEDS: INSULIN LISPRO 1 UNIT/0.01 ML UNIT SQ SCH ×4 (00:40→17:08)
[2020-10-23] MEDS: metroNIDAZOLE 500 MG/100 ML BAG IV SCH ×4 (00:44→18:58)
[2020-10-23] MEDS: 0.9 % SODIUM CHLORIDE 1,000 ML IV SCH ×4 (02:10→22:10)
[2020-10-23] MEDS: MEROPENEM 1 GM in 0.9 % SODIUM CHLORIDE 50 ML IV SCH ×3 (05:44→22:12)
[2020-10-23 06:42] LABS: Basophils # (Auto) 0.04 K/mcL (0.00-0.20); Basophils % (Auto) 0.2 % (0.0-2.0); Eosinophils # (Auto) 0 K/mcL (0.00-0.70); Eosinophils % (Auto) 0 % (0.0-7.0); Hematocrit 44.2 % (41.0-55.0); Hemoglobin 13.7 g/dL (13.5-16.5); Lymphocytes # (Auto) 0.92 K/mcL (1.50-4.80); Lymphocytes % (Auto) 5.7 % (15.0-49.0); Mean Cell Volume 87.2 fL (80.0-100.0); Mean Platelet Volume 9.6 fL (7.4-10.4); Monocytes # (Auto) 0.91 K/mcL (0.10-0.90); Monocytes % (Auto) 5.6 % (1.0-12.0); Neutrophils % (Auto) 88.5 % (38.0-78.0); Platelet Count 469 K/mcL (140-440); RBC 5.07 M/mcL (4.50-5.90); WBC 16.3 K/mcL (4.5-11.0)
[2020-10-23 07:04] LABS: ALT/SGPT 7 U/L (<40); AST/SGOT 11 U/L (<40); Albumin 2.4 gm/dL (3.2-5.2); Albumin/Globulin Ratio 0.7 (1.0-2.3); Alkaline Phosphatase 67 U/L (39-117); Bilirubin,Direct < 0.2 mg/dL (0-0.3); Bilirubin,Total 0.3 mg/dL (0.1-1.0); Blood Urea Nitrogen 15 mg/dL (8-23); Calcium 7.9 mg/dL (8.6-10.4); Carbon Dioxide 19 mmol/L (22-30); Chloride 102 mmol/L (96-108); Globulin 3.4 gm/dL (2.2-3.7); Glomerular Filtration Rate 89; Glucose 142 mg/dL (70-105); Lactate Dehydrogenase 183 U/L (135-225); Phosphorous 2.8 mg/dL (2.5-4.5); Triglycerides 105 mg/dL (<150); Uric Acid 5.9 mg/dL (2.5-8.0)
[2020-10-23] MEDS: PANTOPRAZOLE 40 MG VIAL IV SCH ×2 (07:50→16:53)
[2020-10-23] MEDS: LEVOTHYROXINE 100 MCG VIAL IV SCH (07:53)
--- NOTE | 2020-10-23 17:07 | General Surgery Progress Note ---
SUBJECTIVE Subjective Patient information: Note initiated : 10/23/20 at 5:06 pm Service Date, if different from initiated Date: [] Patient: Agustin Goldsmith 65 y/o M admitted on 10/21/20 for Diverticulitis with Abscess. Chief Complaint: [] Principal diagnosis: Diverticulitis with pelvic abscess Interval history: Patient is clinically stable. His pain is controlled and his vital signs are stable he denies nausea.. His stoma is dusky around the distal margin but is still viable. White blood count 16.3, hemoglobin 13.7, hematocrit 44.2, potassium 4.6, BUN 15, creatinine 0.9. Constitutional Vitals: Vital Signs Temp Pulse Resp BP Pulse Ox 98.4 F 90 18 142/76 96 10/23/20 16:00 10/23/20 16:00 10/23/20 16:00 10/23/20 16:00 10/23/20 16:00 Period Temp Pulse Resp BP Sys/Goodrich Pulse Ox Last 24 Hr 97.7 F-98.9 F 80-90 18-24 103-146/64-86 92-98 Intake and Output 10/23/20 10/23/20 10/23/20 05:59 13:59 21:59 Intake Total 1150 1250 610 Output Total 985 1100 Balance 165 1250 -490 Intake & Output: Intake & Output 10/23/20 10/23/20 10/23/20 05:59 13:59 21:59 Intake Total 1150 1250 610 Output Total 985 1100 Balance 165 1250 -490 Intake: IV 1150 1250 50 Sodium Chloride 0.9% 1,000 ml @ 1000 1000 150 mls/hr IV .Q6H40M MAE Rx#: [id number] Merrem 1 gm In Sodium Chloride 50 50 50 0.9% 50 ml @ 100 mls/hr IV Q8H MAE Rx#:[id number] Oral 560 Tube Feeding 0 Output: Gastric Drainage 230 Right Nare NG/OG 230 Drainage 80 SYDNEE 1 55 SYDNEE 2 15 SYDNEE 3 10 Urine Catheter Amount 675 1100 Stool 0 Other: Urine Appearance Clear Clear Clear Uretheral (Starr) Clear Clear Urine Color Light Tara Bright Yellow Dark Yellow Straw Uretheral (Starr) Bright Yellow Bright Yellow Urine Odor Normal Normal Head Head exam: Present atraumatic, normal inspection and normocephalic Eye Eye exam: Present EOMI, normal appearance and PERRL ENT ENT exam: Present mucous membranes moist and normal oropharynx Neck Neck exam: Present full ROM and normal inspection; Absent lymphadenopathy Respiratory Respiratory exam: Present normal respiratory exam and CTAB Cardiovascular Cardiovascular exam: Present normal rate and rhythm, RRR, +S1 and +S2; Absent JVD GI/Abdominal GI/Abdominal exam: Present diminished bowel sounds and tenderness (Moderate incisional tenderness) Additional comments: Stoma is dusky but functional Extremities Exam Extremities exam: Present full ROM, normal inspection and neurovascular intact Neurological Exam Neurological exam: Present alert and oriented X3 Psychiatric Psychiatric exam: Present normal affect and normal mood A/P Assessment and plan (1) Intra-abdominal abscess: Status: Acute (2) Acute diverticulitis: Status: Acute (3) DMII (diabetes mellitus, type 2): Status: Chronic Comment: dx 2009 Qualifiers: Diabetes mellitus complication status: without complication Diabetes mellitus chcf insulin use: without buttermilk drier operator use Qualified Code(s): E11.9 - Type 2 diabetes mellitus without complications (4) Hypertension, essential: Status: Chronic (5) Depression: Status: Chronic Qualifiers: Depression Type: major depressive disorder Active/Remission status: currently active Major depression episode severity: moderate Major depression recurrence: recurrent Qualified Code(s): F33.1 - Major depressive disorder, recurrent, moderate Narrative A/P Narrative: Patient will be continued on present therapy. Time Spent With Patient Time: Total time spent is greater than 50% in coordination of care (as documented) at patient's floor/unit and/or counseling patient:
[2020-10-24] MEDS: INSULIN LISPRO 1 UNIT/0.01 ML UNIT SQ SCH ×5 (00:16→23:53)
[2020-10-24] MEDS: metroNIDAZOLE 500 MG/100 ML BAG IV SCH ×4 (00:17→19:03)
[2020-10-24] MEDS: 0.9 % SODIUM CHLORIDE 1,000 ML IV SCH ×4 (01:25→23:46)
[2020-10-24] MEDS: LORazepam 2 MG/ML VIAL IV PRN (04:24)
[2020-10-24] MEDS: MEROPENEM 1 GM in 0.9 % SODIUM CHLORIDE 50 ML IV SCH ×3 (05:52→22:16)
[2020-10-24 07:20] LABS: Basophils # (Auto) 0.06 K/mcL (0.00-0.20); Basophils % (Auto) 0.4 % (0.0-2.0); Eosinophils # (Auto) 0.02 K/mcL (0.00-0.70); Eosinophils % (Auto) 0.1 % (0.0-7.0); Hematocrit 39.7 % (41.0-55.0); Hemoglobin 12.7 g/dL (13.5-16.5); Lymphocytes # (Auto) 0.86 K/mcL (1.50-4.80); Lymphocytes % (Auto) 6.3 % (15.0-49.0); Mean Cell Volume 86.7 fL (80.0-100.0); Mean Platelet Volume 9.2 fL (7.4-10.4); Monocytes # (Auto) 0.82 K/mcL (0.10-0.90); Neutrophils % (Auto) 87.2 % (38.0-78.0); Platelet Count 450 K/mcL (140-440); RBC 4.58 M/mcL (4.50-5.90); Red Cell Distribution Width 15.9 % (11.5-14.5); WBC 13.6 K/mcL (4.5-11.0)
[2020-10-24 07:53] LABS: ALT/SGPT 6 U/L (<40); AST/SGOT 9 U/L (<40); Albumin 2.2 gm/dL (3.2-5.2); Albumin/Globulin Ratio 0.6 (1.0-2.3); Alkaline Phosphatase 65 U/L (39-117); Bilirubin,Direct < 0.2 mg/dL (0-0.3); Bilirubin,Total 0.2 mg/dL (0.1-1.0); Blood Urea Nitrogen 13 mg/dL (8-23); Carbon Dioxide 20 mmol/L (22-30); Chloride 107 mmol/L (96-108); Globulin 3.5 gm/dL (2.2-3.7); Glomerular Filtration Rate 99; Glucose 138 mg/dL (70-105); Lactate Dehydrogenase 188 U/L (135-225); Phosphorous 1.5 mg/dL (2.5-4.5); Triglycerides 96 mg/dL (<150); Uric Acid 7.4 mg/dL (2.5-8.0)
[2020-10-24] MEDS: PANTOPRAZOLE 40 MG VIAL IV SCH ×2 (08:44→17:46)
[2020-10-24] MEDS: LEVOTHYROXINE 100 MCG VIAL IV SCH (08:46)
--- NOTE | 2020-10-24 09:26 | General Surgery Progress Note ---
SUBJECTIVE Subjective Patient information: Note initiated : 10/24/20 at 9:20 am Service Date, if different from initiated Date: [] Patient: Agustin Goldsmith 65 y/o M admitted on 10/21/20 for Diverticulitis with Abscess. Chief Complaint: [] Principal diagnosis: Diverticulitis with pelvic abscess Interval history: Patient remains clinically stable. He has been cooperative in ambulating. His pain is well controlled. He had some nausea last evening. He had a small amount of output through his stoma. The stoma is dusky and cyanotic at the level of the skin but is viable below the level. His incision is unremarkable. Drainage in his SYDNEE drains is less than 10 cc per shift. Constitutional Vitals: Vital Signs Temp Pulse Resp BP Pulse Ox 97 F 100 H 16 143/87 95 10/24/20 07:40 10/24/20 07:40 10/24/20 07:40 10/24/20 07:40 10/24/20 07:40 Period Temp Pulse Resp BP Sys/Goodrich Pulse Ox Last 24 Hr 97 F-99.3 F 86-100 16-20 139-149/76-87 93-97 Intake and Output 10/23/20 10/24/20 10/24/20 21:59 05:59 13:59 Intake Total 1710 1150 50 Output Total 1670 1424 Balance 40 -274 50 Weight 231 lb Intake & Output: Intake & Output 10/23/20 10/24/20 10/24/20 21:59 05:59 13:59 Intake Total 1710 1150 50 Output Total 1670 1424 Balance 40 -274 50 Weight 231 lb Intake: IV 1150 1150 50 Sodium Chloride 0.9% 1,000 ml @ 1000 1000 150 mls/hr IV .Q6H40M MAE Rx#: [id number] Merrem 1 gm In Sodium Chloride 50 50 50 0.9% 50 ml @ 100 mls/hr IV Q8H MAE Rx#:[id number] Oral 560 Tube Feeding 0 Output: Gastric Drainage 570 350 Right Nare NG/OG 570 350 Drainage 24 SYDNEE 1 10 SYDNEE 2 10 SYDNEE 3 4 Urine Catheter Amount 1100 1050 Other: Urine Appearance Clear Clear Uretheral (Starr) Clear Urine Color Dark Yellow Dark Yellow Straw Uretheral (Starr) Bright Yellow Urine Odor Normal Stool Size Small Stool Color Dark Red Blood Stool Consistency Watery Head Head exam: Present atraumatic, normal inspection and normocephalic Eye Eye exam: Present EOMI, normal appearance and PERRL ENT ENT exam: Present mucous membranes moist and normal oropharynx Respiratory Respiratory exam: Present normal respiratory exam and CTAB Cardiovascular Cardiovascular exam: Present normal rate and rhythm, RRR, +S1 and +S2; Absent JVD Extremities Exam Extremities exam: Present full ROM, normal inspection and neurovascular intact Neurological Exam Neurological exam: Present alert and oriented X3 Psychiatric Psychiatric exam: Present normal affect and normal mood A/P Assessment and plan (1) Intra-abdominal abscess: Status: Acute (2) Acute diverticulitis: Status: Acute (3) DMII (diabetes mellitus, type 2): Status: Chronic Comment: dx 2009 Qualifiers: Diabetes mellitus complication status: without complication Diabetes mellitus watermelon inspector insulin use: without watermelon inspector use Qualified Code(s): E11.9 - Type 2 diabetes mellitus without complications (4) Hypertension, essential: Status: Chronic (5) Depression: Status: Chronic Qualifiers: Depression Type: major depressive disorder Active/Remission status: currently active Major depression episode severity: moderate Major depression recurrence: recurrent Qualified Code(s): F33.1 - Major depressive disorder, recurrent, moderate Narrative A/P Narrative: Patient will be continued on present treatment. Nasogastric suction will be continued until he has liquid output through his stoma. Case management consult and social service consults will be obtained prior to discharge Time Spent With Patient Time: Total time spent is greater than 50% in coordination of care (as documented) at patient's floor/unit and/or counseling patient:
--- NOTE | 2020-10-24 11:31 | Surgical Pathology Report ---
Histology Microscopic Diagnosis Specimen A- SIGMOID COLON, SEGMENTAL RESECTION: --- DIVERTICULOSIS. --- ABSCESS FORMATION INVOLVING PERICOLIC FAT WITH SEROSAL GRANULATION TISSUE. --- THREE BENIGN LYMPH NODES (0/3). --- NO DYSPLASIA OR MALIGNANCY IDENTIFIED. --- MARGINS VIABLE. Procedural Impression Severe diverticulitis with abscesses. Gross Description Received in formalin designated as sigmoid, is a segment of sigmoid received closed with one margin open and one margin stapled. The stapled margin is inked black. It is 11.3 cm in length by 3.9 cm in diameter. The wall is up to 0.4 cm thick. There is attached garcia fat with areas of possible adhesions and hoang-garcia exudate. Beneath the mucosa extending into the possibly adhesed area is an area of possible inflammation. The mucosa is garcia and plicated. There are areas of possible diverticula identified. There are three candidate lymph nodes identified from 0.2 to 0.3 cm. Hydraulic Press Servicer sections are submitted in seven cassettes: A1 - margins; A2 - risk control field representative sections of possible diverticula; A3-A5 - risk control field representative sections of possibly infected area beneath the mucosal surface, trisected; A6 - random sections; A7 - risk control field representative sections of candidate lymph nodes. (SCB:sln) Electronically Signed Samara Zhang MD, FCAP Electronically Signed 10/24/2020 11:30
[2020-10-24] MEDS ORDERED: POTASSIUM PHOSPHATE 40 MEQ in DEXTROSE 5% IN WATER 500 ML IV ONE (12:19)
--- NOTE | 2020-10-24 12:38 | Operative Note ---
DATE OF OPERATION: 10/22/2020 PREOPERATIVE DIAGNOSIS: Diverticulitis with abscess. POSTOPERATIVE DIAGNOSIS: Diverticulitis with multiple pelvic and right lower quadrant abscesses. PROCEDURE: Sigmoid colectomy with colostomy and drainage of multiple pelvic and abdominal abscesses. SURGEON: Cr Deluca M.D. FINDINGS: Severe sigmoid diverticulitis with more pelvic and right lower quadrant abscesses. DESCRIPTION OF PROCEDURE: Under general anesthesia, the patient's abdomen was prepped and draped in a sterile field. Timeout procedure was carried out as per protocol. Lower midline incision was made. Upon entering the abdomen, there was no free purulence noted. There was dense phlegmon of the pelvis in the right lower quadrant. The omentum was from the dome of phlegmon and the sigmoid colon. Multiple loops of bowel, cecum, and terminal ileum were involved in __ phlegmon. The sigmoid colon was mobilized initially since I knew there was a large abscess between the colon and the bladder. A very large abscess was entered. It was suctioned, irrigated, and cultured. Once this was done, I was able to separate the colon from the back of the bladder and another deeper abscess was encountered, which was copiously drained and irrigated. This was extended into the deep pelvis until all purulence was removed. I then mobilized the terminal ileum and followed it to the cecum. It was adherent to the lateral wall as was the cecum. The ileum and cecum were from the peritoneal wall and a large abscess was encountered. Using primarily finger fractionation, I was able to explore the depth of the abscess, which extended almost all the way to the hepatic flexure, ascending colon. It was widely opened, irrigated to make sure that all purulent collections were removed. There was another abscess at the base of the small bowel mesentery in the lower abdomen. This was opened and irrigated. All of the small bowel was inspected and appeared to be uninjured. Next, the sigmoid colon was mobilized proximally above the inflamed area. It was divided using Contour stapler. Once this was done, the sigmoid mesentery was divided using the Voyant cautery device. This was extended down to the peritoneal reflection. At this point, it was doubly clamped with two right angled intestinal clamps and divided. The rectal stump was oversewn using two rows of 2-0 Prolene. The long edges were left in place for future identification. The rectal area was thoroughly evaluated and dissected and all purulent collections were addressed. At this point, the sigmoid colon was mobilized along the lateral peritoneal attachments up to the descending colon and the splenic flexure. This allowed enough length for the stoma; however, the mesentery was significantly thickened. A stoma was made in the left lower quadrant retirement between the umbilicus and the anterior superior iliac spine. The skin was removed and the muscle was divided longitudinally. The muscle was stretched as much as possible to try to prevent excess constriction on the bowel. The bowel was grasped with an Trent clamp and pulled through the abdominal wall. The wall of the bowel was then sutured to the peritoneum using about eight sutures of 3-0 Prolene. More irrigation was carried out. Three drains were placed. One drain was placed in the deep pelvis. Another drain was placed in the lower gutter on the right and the final drain was placed extending along the right gutter up to the hepatic flexure. These were brought out through separate stab incisions in the left lower quadrant. We then changed instruments and table. Sponge count was carried out. We exchanged gloves. Further irrigation was carried out. The fascia and peritoneum were closed using #1 Prolene. Subcutaneous tissue was copiously irrigated and closed with a 2-0 Monocryl. Skin was closed with madisyn. The stoma was matured. The wall of the stoma was sutured to the anterior rectus fascia using multiple sutures of 3-0 silk. The edge of the open bowel was sutured to the dermis circumferentially using 3-0 Vicryl. Stoma appliance was placed. Drain sponges and Tegaderm were placed. The patient tolerated the procedure well. He was awakened and transferred to the postanesthetic care unit in satisfactory condition. LCS:phuong Job ID: [id number] Doc ID: [id number] Cr Deluca M.D.
[2020-10-24] MEDS: HYDROmorphone 1 MG/ML SYRINGE IV PRN (18:59)
[2020-10-25] MEDS: metroNIDAZOLE 500 MG/100 ML BAG IV SCH ×4 (01:05→18:32)
[2020-10-25] MEDS: MEROPENEM 1 GM in 0.9 % SODIUM CHLORIDE 50 ML IV SCH ×3 (05:45→22:03)
[2020-10-25] MEDS: INSULIN LISPRO 1 UNIT/0.01 ML UNIT SQ SCH ×4 (05:49→23:43)
[2020-10-25] MEDS: 0.9 % SODIUM CHLORIDE 1,000 ML IV SCH ×4 (05:49→22:02)
[2020-10-25] MEDS: LORazepam 2 MG/ML VIAL IV PRN (05:54)
[2020-10-25 06:58] LABS: Basophils # (Auto) 0.08 K/mcL (0.00-0.20); Basophils % (Auto) 0.7 % (0.0-2.0); Eosinophils # (Auto) 0.07 K/mcL (0.00-0.70); Eosinophils % (Auto) 0.6 % (0.0-7.0); Hemoglobin 12.1 g/dL (13.5-16.5); Lymphocytes # (Auto) 0.97 K/mcL (1.50-4.80); Lymphocytes % (Auto) 8.5 % (15.0-49.0); Mean Cell Volume 86.3 fL (80.0-100.0); Monocytes # (Auto) 0.63 K/mcL (0.10-0.90); Monocytes % (Auto) 5.5 % (1.0-12.0); Neutrophils % (Auto) 84.7 % (38.0-78.0); Platelet Count 452 K/mcL (140-440); RBC 4.52 M/mcL (4.50-5.90); Red Cell Distribution Width 15.7 % (11.5-14.5); WBC 11.4 K/mcL (4.5-11.0)
[2020-10-25 07:12] LABS: ALT/SGPT 6 U/L (<40); AST/SGOT 9 U/L (<40); Albumin 2.2 gm/dL (3.2-5.2); Albumin/Globulin Ratio 0.6 (1.0-2.3); Alkaline Phosphatase 55 U/L (39-117); Bilirubin,Direct < 0.2 mg/dL (0-0.3); Bilirubin,Total 0.3 mg/dL (0.1-1.0); Blood Urea Nitrogen 11 mg/dL (8-23); Carbon Dioxide 24 mmol/L (22-30); Chloride 105 mmol/L (96-108); Globulin 3.6 gm/dL (2.2-3.7); Glomerular Filtration Rate 105; Glucose 131 mg/dL (70-105); Lactate Dehydrogenase 181 U/L (135-225); Phosphorous 1.7 mg/dL (2.5-4.5); Triglycerides 90 mg/dL (<150); Uric Acid 7.2 mg/dL (2.5-8.0)
[2020-10-25] MEDS: LEVOTHYROXINE 100 MCG VIAL IV SCH (07:15)
[2020-10-25] MEDS: PANTOPRAZOLE 40 MG VIAL IV SCH ×2 (07:16→17:33)
[2020-10-25] MEDS ORDERED: POTASSIUM PHOSPHATE 40 MEQ in DEXTROSE 5% IN WATER 500 ML IV ONE (10:44)
--- NOTE | 2020-10-25 10:44 | General Surgery Progress Note ---
SUBJECTIVE Subjective Patient information: Note initiated : 10/25/20 at 10:41 am Service Date, if different from initiated Date: [] Patient: Agustin Goldsmith 65 y/o M admitted on 10/21/20 for Diverticulitis with Abscess. Chief Complaint: [] Principal diagnosis: Diverticulitis with pelvic abscess Interval history: Patient states that he feels better. He has been afebrile. His pain is improved and he is starting to pass gas through his stoma. He denies nausea. White blood count is 11.4, hemoglobin 12.1, hematocrit 39, phosphorus 1.7. Potassium BUN and creatinine are normal Constitutional Vitals: Vital Signs Temp Pulse Resp BP Pulse Ox 98.7 F 80 16 153/85 93 10/25/20 08:00 10/25/20 08:00 10/25/20 08:00 10/25/20 08:00 10/25/20 08:00 Period Temp Pulse Resp BP Sys/Goodrich Pulse Ox Last 24 Hr 98.3 F-99.1 F 80-90 16-20 138-161/81-87 93-95 Intake and Output 10/24/20 10/25/20 10/25/20 21:59 05:59 13:59 Intake Total 1609.0909 150 1150 Output Total 3470 908 900 Balance -1860.9091 -758 250 Weight 225 lb 3.2 oz Intake & Output: Intake & Output 10/24/20 10/25/20 10/25/20 21:59 05:59 13:59 Intake Total 1609.0909 150 1150 Output Total 3470 908 900 Balance -1860.9091 -758 250 Weight 225 lb 3.2 oz Intake: IV 1609.0909 150 1150 Sodium Chloride 0.9% 1,000 ml @ 1000 1000 150 mls/hr IV .Q6H40M MAE Rx#: [id number] Merrem 1 gm In Sodium Chloride 50 50 0.9% 50 ml @ 100 mls/hr IV Q8H MAE Rx#:[id number] Potassium Phosphate 40 Meq In 509.0909 Dextrose 5% in Water 500 ml @ 127.273 mls/hr IV ONCE ONE Rx#: [id number] Tube Feeding 0 0 Output: Gastric Drainage 550 200 250 Right Nare NG/OG 550 200 250 Drainage 45 21 SYDNEE 1 5 5 SYDNEE 2 35 15 SYDNEE 3 5 1 Urine Catheter Amount 2875 675 650 Uretheral (Starr) 650 Stool 12 Other: Urine Appearance Clear Mucous Threads Uretheral (Starr) Clear Clear Urine Color Bright Yellow Dark Yellow Uretheral (Starr) Bright Yellow Bright Yellow Urine Odor Normal Normal Head Head exam: Present atraumatic, normal inspection and normocephalic Eye Eye exam: Present EOMI, normal appearance and PERRL ENT ENT exam: Present mucous membranes moist and normal oropharynx Respiratory Respiratory exam: Present normal respiratory exam and CTAB Cardiovascular Cardiovascular exam: Present normal rate and rhythm, RRR, +S1 and +S2; Absent JVD GI/Abdominal GI/Abdominal exam: Present diminished bowel sounds and tenderness (Moderate incisional tenderness) Additional comments: Stoma is dusky but functional Extremities Exam Extremities exam: Present full ROM, normal inspection and neurovascular intact Neurological Exam Neurological exam: Present alert and oriented X3 Psychiatric Psychiatric exam: Present depressed and flat affect A/P Assessment and plan (1) Intra-abdominal abscess: Status: Acute (2) Acute diverticulitis: Status: Acute (3) DMII (diabetes mellitus, type 2): Status: Chronic Comment: dx 2009 Qualifiers: Diabetes mellitus complication status: without complication 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 detention use Qualified Code(s): E11.9 - Type 2 diabetes mellitus without complications (4) Hypertension, essential: Status: Chronic (5) Depression: Status: Chronic Qualifiers: Depression Type: major depressive disorder Active/Remission status: currently active Major depression episode severity: moderate Major depression recurrence: recurrent Qualified Code(s): F33.1 - Major depressive disorder, recurrent, moderate Narrative A/P Narrative: Discontinue nasogastric tube Discontinue Starr catheter Clear liquid diet Replace potassium phosphate Time Spent With Patient Time: Total time spent is greater than 50% in coordination of care (as documented) at patient's floor/unit and/or counseling patient:
[2020-10-25] MEDS: ONDANSETRON 4 MG/2 ML VIAL IV PRN (12:38)
[2020-10-25] MEDS: HYDROmorphone 1 MG/ML SYRINGE IV PRN (21:59)
[2020-10-26] MEDS: metroNIDAZOLE 500 MG/100 ML BAG IV SCH ×4 (01:10→18:54)
[2020-10-26] MEDS: HYDROmorphone 1 MG/ML SYRINGE IV PRN ×2 (03:18→09:41)
[2020-10-26] MEDS: MEROPENEM 1 GM in 0.9 % SODIUM CHLORIDE 50 ML IV SCH ×3 (05:33→22:00)
[2020-10-26] MEDS: INSULIN LISPRO 1 UNIT/0.01 ML UNIT SQ SCH ×4 (05:38→23:18)
[2020-10-26] MEDS: 0.9 % SODIUM CHLORIDE 1,000 ML IV SCH ×4 (06:46→23:21)
[2020-10-26] MEDS: PANTOPRAZOLE 40 MG VIAL IV SCH (06:46)
[2020-10-26] MEDS: LEVOTHYROXINE 100 MCG VIAL IV SCH (06:46)
[2020-10-26 07:46] LABS: ALT/SGPT < 5 U/L (<40); AST/SGOT 7 U/L (<40); Albumin 1.9 gm/dL (3.2-5.2); Albumin/Globulin Ratio 0.6 (1.0-2.3); Alkaline Phosphatase 44 U/L (39-117); Bilirubin,Direct < 0.2 mg/dL (0-0.3); Bilirubin,Total 0.2 mg/dL (0.1-1.0); Blood Urea Nitrogen 9 mg/dL (8-23); Calcium 7.4 mg/dL (8.6-10.4); Carbon Dioxide 27 mmol/L (22-30); Chloride 107 mmol/L (96-108); Globulin 3.1 gm/dL (2.2-3.7); Glomerular Filtration Rate 113; Glucose 138 mg/dL (70-105); Lactate Dehydrogenase 170 U/L (135-225); Phosphorous 1.8 mg/dL (2.5-4.5); Triglycerides 97 mg/dL (<150); Uric Acid 4.3 mg/dL (2.5-8.0)
[2020-10-26] MEDS: buPROPion 150 MG TAB.XL.24H PO SCH (09:41)
[2020-10-26] MEDS: ONDANSETRON 4 MG/2 ML VIAL IV PRN ×3 (10:26→23:13)
[2020-10-26 12:39] LABS: Basophils # (Auto) 0.08 K/mcL (0.00-0.20); Basophils % (Auto) 0.7 % (0.0-2.0); Eosinophils # (Auto) 0.13 K/mcL (0.00-0.70); Eosinophils % (Auto) 1.2 % (0.0-7.0); Hematocrit 36.8 % (41.0-55.0); Hemoglobin 11.6 g/dL (13.5-16.5); Lymphocytes % (Auto) 9.9 % (15.0-49.0); Mean Cell Volume 87.6 fL (80.0-100.0); Mean Corpuscular HGB Conc 31.5 g/dL (31.0-36.0); Mean Platelet Volume 9.5 fL (7.4-10.4); Monocytes # (Auto) 0.52 K/mcL (0.10-0.90); Monocytes % (Auto) 4.7 % (1.0-12.0); Neutrophils % (Auto) 83.5 % (38.0-78.0); Platelet Count 422 K/mcL (140-440); Red Cell Distribution Width 15.4 % (11.5-14.5); WBC 11.1 K/mcL (4.5-11.0)
--- NOTE | 2020-10-26 16:48 | General Surgery Progress Note ---
SUBJECTIVE Subjective Patient information: Note initiated : 10/26/20 at 4:46 pm Service Date, if different from initiated Date: [] Patient: Agustin Goldsmith 65 y/o M admitted on 10/21/20 for Diverticulitis with Abscess. Chief Complaint: [] Principal diagnosis: Diverticulitis with pelvic abscess Interval history: Patient feels better. He has less abdominal pain. He is having more passage of gas and liquid stool through his stoma. He is tolerating liquids without difficulty. White blood count 11.1, hemoglobin 11.6, phosphorus 1.8 Constitutional Vitals: Vital Signs Temp Pulse Resp BP Pulse Ox 98.7 F 61 20 146/89 95 10/26/20 16:00 10/26/20 03:52 10/26/20 16:00 10/26/20 16:00 10/26/20 16:00 Period Temp Pulse Resp BP Sys/Goodrich Pulse Ox Last 24 Hr 97.7 F-98.7 F 61-93 16-20 128-146/73-89 92-95 Intake and Output 10/26/20 10/26/20 10/26/20 05:59 13:59 21:59 Intake Total 1600 250 700 Output Total 366 375 Balance 1234 250 325 Intake & Output: Intake & Output 10/26/20 10/26/20 10/26/20 05:59 13:59 21:59 Intake Total 1600 250 700 Output Total 366 375 Balance 1234 250 325 Intake: IV 1250 250 50 Sodium Chloride 0.9% 1,000 ml @ 1000 150 mls/hr IV .Q6H40M MAE Rx#: [id number] Merrem 1 gm In Sodium Chloride 50 50 50 0.9% 50 ml @ 100 mls/hr IV Q8H MAE Rx#:[id number] Oral 350 650 Output: Drainage 16 SYDNEE 1 5 SYDNEE 2 7 SYDNEE 3 4 Urine Catheter Amount 375 Void Amount 350 Other: Urine Appearance Clear Urine Color Bright Yellow Urine Odor Normal Head Head exam: Present atraumatic, normal inspection and normocephalic Eye Eye exam: Present EOMI, normal appearance and PERRL ENT ENT exam: Present mucous membranes moist and normal oropharynx Neck Neck exam: Present full ROM and normal inspection; Absent lymphadenopathy Respiratory Respiratory exam: Present normal respiratory exam and CTAB Cardiovascular Cardiovascular exam: Present normal rate and rhythm, RRR, +S1 and +S2; Absent JVD GI/Abdominal GI/Abdominal exam: Present diminished bowel sounds and tenderness (Moderate incisional tenderness) Additional comments: Stoma is dusky but functional Extremities Exam Extremities exam: Present full ROM, normal inspection and neurovascular intact Neurological Exam Neurological exam: Present alert and oriented X3 Psychiatric Psychiatric exam: Present depressed and flat affect A/P Assessment and plan (1) Intra-abdominal abscess: Status: Acute (2) Acute diverticulitis: Status: Acute (3) DMII (diabetes mellitus, type 2): Status: Chronic Comment: dx 2009 Qualifiers: Diabetes mellitus complication status: without complication Diabetes mellitus long term care administrator insulin use: without long term care administrator use Qualified Code(s): E11.9 - Type 2 diabetes mellitus without complications (4) Hypertension, essential: Status: Chronic (5) Depression: Status: Chronic Qualifiers: Depression Type: major depressive disorder Active/Remission status: currently active Major depression episode severity: moderate Major depression recurrence: recurrent Qualified Code(s): F33.1 - Major depressive disorder, recurrent, moderate Narrative A/P Narrative: Check labs in the morning Full liquid diet Continue IV antibiotics x48 hours Time Spent With Patient Time: Total time spent is greater than 50% in coordination of care (as documented) at patient's floor/unit and/or counseling patient:
[2020-10-26] MEDS ORDERED: POTASSIUM PHOSPHATE 40 MEQ in DEXTROSE 5% IN WATER 500 ML IV ONE (16:51)
[2020-10-26] MEDS: PANTOPRAZOLE 40 MG TABLET PO SCH (16:58)
[2020-10-26] MEDS ORDERED: POTASSIUM PHOSPHATE 66 MEQ/15 ML VIAL IV ONE (17:47)
[2020-10-27] MEDS: metroNIDAZOLE 500 MG/100 ML BAG IV SCH ×4 (01:17→18:32)
[2020-10-27] MEDS: 0.9 % SODIUM CHLORIDE 1,000 ML IV SCH ×5 (01:21→22:21)
[2020-10-27] MEDS: MEROPENEM 1 GM in 0.9 % SODIUM CHLORIDE 50 ML IV SCH ×3 (05:28→22:03)
[2020-10-27] MEDS: INSULIN LISPRO 1 UNIT/0.01 ML UNIT SQ SCH ×4 (05:33→23:38)
[2020-10-27] MEDS: buPROPion 150 MG TAB.XL.24H PO SCH ×2 (06:54→07:11)
[2020-10-27] MEDS: LEVOTHYROXINE 50 MCG TABLET PO SCH (06:54)
[2020-10-27] MEDS: PANTOPRAZOLE 40 MG TABLET PO SCH ×2 (06:55→16:54)
[2020-10-27 07:48] LABS: Basophils # (Auto) 0.06 K/mcL (0.00-0.20); Basophils % (Auto) 0.6 % (0.0-2.0); Hematocrit 35.7 % (41.0-55.0); Hemoglobin 11.3 g/dL (13.5-16.5); Lymphocytes # (Auto) 0.89 K/mcL (1.50-4.80); Lymphocytes % (Auto) 9.2 % (15.0-49.0); Mean Cell Volume 84.6 fL (80.0-100.0); Mean Corpuscular HGB Conc 31.7 g/dL (31.0-36.0); Mean Platelet Volume 9.6 fL (7.4-10.4); Monocytes % (Auto) 6.2 % (1.0-12.0); Platelet Count 373 K/mcL (140-440); RBC 4.22 M/mcL (4.50-5.90); WBC 9.7 K/mcL (4.5-11.0)
[2020-10-27 09:21] LABS: ALT/SGPT 6 U/L (<40); AST/SGOT 8 U/L (<40); Albumin 1.9 gm/dL (3.2-5.2); Albumin/Globulin Ratio 0.7 (1.0-2.3); Alkaline Phosphatase 44 U/L (39-117); Bilirubin,Direct < 0.2 mg/dL (0-0.3); Bilirubin,Total 0.3 mg/dL (0.1-1.0); Blood Urea Nitrogen 7 mg/dL (8-23); Calcium 7.8 mg/dL (8.6-10.4); Carbon Dioxide 23 mmol/L (22-30); Chloride 103 mmol/L (96-108); Globulin 2.9 gm/dL (2.2-3.7); Glomerular Filtration Rate 124; Glucose 120 mg/dL (70-105); Lactate Dehydrogenase 159 U/L (135-225); Phosphorous 2.1 mg/dL (2.5-4.5); Triglycerides 153 mg/dL (<150); Uric Acid 2.7 mg/dL (2.5-8.0)
--- NOTE | 2020-10-27 13:04 | General Surgery Progress Note ---
SUBJECTIVE Subjective Patient information: Note initiated : 10/27/20 at 1:01 pm Service Date, if different from initiated Date: [] Patient: Agustin Goldsmith 65 y/o M admitted on 10/21/20 for Diverticulitis with Abscess. Chief Complaint: [] Principal diagnosis: Diverticulitis with pelvic abscess Interval history: Patient continues to improve. He is afebrile. He is passing flatus and stool and tolerating a full liquids without difficulty. White blood count is 9.7, hemoglobin 11.3, hematocrit 33.7. Potassium BUN/creatinine and phosphorus are normal. Constitutional Vitals: Vital Signs Temp Pulse Resp BP Pulse Ox 98.7 F 75 16 149/87 94 10/27/20 11:51 10/27/20 11:51 10/27/20 11:51 10/27/20 11:51 10/27/20 11:51 Period Temp Pulse Resp BP Sys/Goodrich Pulse Ox Last 24 Hr 97.4 F-98.7 F 63-93 14-20 134-156/74-89 93-96 Intake and Output 10/26/20 10/27/20 10/27/20 21:59 05:59 13:59 Intake Total 800 1959.0909 1150 Output Total 595 643 800 Balance 205 1316.0909 350 Weight 234 lb 12.8 oz Intake & Output: Intake & Output 10/26/20 10/27/20 10/27/20 21:59 05:59 13:59 Intake Total 800 1959.0909 1150 Output Total 595 643 800 Balance 205 1316.0909 350 Weight 234 lb 12.8 oz Intake: IV 150 1659.0909 1150 Sodium Chloride 0.9% 1,000 ml @ 1000 1000 150 mls/hr IV .Q6H40M MAE Rx#: [id number] Merrem 1 gm In Sodium Chloride 50 50 50 0.9% 50 ml @ 100 mls/hr IV Q8H MAE Rx#:[id number] Potassium Phosphate 40 Meq In 509.0909 Dextrose 5% in Water 500 ml @ 127.273 mls/hr IV ONCE ONE Rx#: [id number] Oral 650 300 Output: Drainage 13 SYDNEE 1 6 SYDNEE 2 4 SYDNEE 3 3 Urine Catheter Amount 375 Void Amount 220 630 800 Other: Urine Appearance Clear Clear Urine Color Dark Yellow Dark Yellow Dark Yellow Urine Odor Normal Normal Head Head exam: Present atraumatic, normal inspection and normocephalic Eye Eye exam: Present EOMI, normal appearance and PERRL ENT ENT exam: Present mucous membranes moist and normal oropharynx Neck Neck exam: Present full ROM and normal inspection; Absent lymphadenopathy Respiratory Respiratory exam: Present normal respiratory exam and CTAB Cardiovascular Cardiovascular exam: Present normal rate and rhythm, RRR, +S1 and +S2; Absent JVD GI/Abdominal GI/Abdominal exam: Present diminished bowel sounds and tenderness (Moderate incisional tenderness) Additional comments: Stoma is dusky but functional Extremities Exam Extremities exam: Present full ROM, normal inspection and neurovascular intact Neurological Exam Neurological exam: Present alert and oriented X3 Psychiatric Psychiatric exam: Present depressed and flat affect A/P Assessment and plan (1) Intra-abdominal abscess: Status: Acute (2) Acute diverticulitis: Status: Acute (3) DMII (diabetes mellitus, type 2): Status: Chronic Comment: dx 2009 Qualifiers: Diabetes mellitus complication status: without complication Diabetes mellitus intermediate school teacher insulin use: without senior care use Qualified Code(s): E11.9 - Type 2 diabetes mellitus without complications (4) Hypertension, essential: Status: Chronic (5) Depression: Status: Chronic Qualifiers: Depression Type: major depressive disorder Active/Remission status: currently active Major depression episode severity: moderate Major depression recurrence: recurrent Qualified Code(s): F33.1 - Major depressive disorder, recurrent, moderate Narrative A/P Narrative: Patient is clinically stable Anticipate possible discharge in the a.m. Time Spent With Patient Time: Total time spent is greater than 50% in coordination of care (as documented) at patient's floor/unit and/or counseling patient:
[2020-10-28] MEDS: metroNIDAZOLE 500 MG/100 ML BAG IV SCH ×3 (00:34→12:44)
[2020-10-28] MEDS: 0.9 % SODIUM CHLORIDE 1,000 ML IV SCH ×2 (03:11→10:14)
[2020-10-28] MEDS: MEROPENEM 1 GM in 0.9 % SODIUM CHLORIDE 50 ML IV SCH (05:15)
[2020-10-28] MEDS: INSULIN LISPRO 1 UNIT/0.01 ML UNIT SQ SCH ×2 (05:20→11:35)
[2020-10-28 06:59] LABS: Basophils # (Auto) 0.05 K/mcL (0.00-0.20); Basophils % (Auto) 0.6 % (0.0-2.0); Eosinophils # (Auto) 0.08 K/mcL (0.00-0.70); Hematocrit 35.7 % (41.0-55.0); Hemoglobin 11.3 g/dL (13.5-16.5); Lymphocytes # (Auto) 0.95 K/mcL (1.50-4.80); Lymphocytes % (Auto) 11.7 % (15.0-49.0); Mean Cell Volume 83.2 fL (80.0-100.0); Mean Corpuscular HGB Conc 31.7 g/dL (31.0-36.0); Mean Platelet Volume 9.4 fL (7.4-10.4); Monocytes # (Auto) 0.44 K/mcL (0.10-0.90); Monocytes % (Auto) 5.4 % (1.0-12.0); Neutrophils % (Auto) 81.3 % (38.0-78.0); Platelet Count 360 K/mcL (140-440); RBC 4.29 M/mcL (4.50-5.90); Red Cell Distribution Width 15.1 % (11.5-14.5); WBC 8.1 K/mcL (4.5-11.0)
[2020-10-28] MEDS: PANTOPRAZOLE 40 MG TABLET PO SCH (07:56)
[2020-10-28] MEDS: LEVOTHYROXINE 50 MCG TABLET PO SCH (07:56)
[2020-10-28] MEDS: buPROPion 150 MG TAB.XL.24H PO SCH (07:56)
--- NOTE | 2020-10-28 12:18 | Discharge Summary ---
Discharge Provider Provider Patient information: Note initiated : 10/28/20 at 12:08 pm Service Date, if different from initiated Date: [] Patient: Agustin Goldsmith 65 y/o M admitted on 10/21/20 for Diverticulitis with Abscess. Chief Complaint: [] Date of admission: 10/21/20 12:04 Discharge date: 10/28/20 Primary care physician: Ngozi Swenson DO Admitting clinician: Cr Deluca Attending physician on admission: Cr Deluca Attending physician on discharge: Cr Deluca Discharging clinician: Cr Deluca COURSE Hospital Course Hospital course: 65-year-old male who was readmitted with progressive diverticulitis with abscess after undergoing 1 week history of inpatient IV antibiotics and 1 week of outpatient antibiotics. His last CT showed progression of the inflammation of the sigmoid colon with marked increase in the size of his pelvic abscesses. He was readmitted and scheduled for segmental sigmoid colon resection with colostomy and drainage of the multiple pelvic and right lower quadrant abscesses. Patient has recovered from the surgery uneventfully. He is now tolerating a diet and is having good output through his stoma. He is afebrile and has a white blood count of 8.1. Drainage from the pelvic drain in the right lower quadrant drain is significant however the right gutter and upper quadrant drain is almost dry and is discontinued. Patient will be discharged on oral Levaquin and Flagyl for 3 weeks. Discharge diagnosis: Acute diverticulitis with multiple pelvic and right lower quadrant abscesse Secondary discharge diagnosis: Diabetes mellitus type 2 Hypertension Chronic depression Reason for admission: Progression of diverticulitis and abscesses Procedures: Sigmoid colectomy with Linda's pouch and end colostomy Pertinent studies/significant findings: CT of abdomen and pelvis with IV contrast Complications: None Time Spent with Patient Time attestation: Total time spent providing and/or coordinating discharge services: Physical Examination Vital Signs Vital signs: Temp Pulse Resp BP Pulse Ox 96.6 F L 87 16 135/93 93 10/28/20 08:00 10/28/20 08:00 10/28/20 08:00 10/28/20 08:00 10/28/20 08:00 General physical appearance General physical exam: well developed, well nourished, no distress, no pain and obese Eyes Eye exam: PERRL and normal ocular movement ENT ENT exam: normal mucosa and no hearing loss Head Head exam IM: Present atraumatic, normal inspection and normocephalic Neck Neck exam: no masses, no bruits, trachea midline and no lymphadenopathy Cardiovascular Cardiovascular exam IM: Present irregular rhythm, +S1, +S2 and tachycardia; Absent JVD Respiratory Respiratory exam: normal expansion, normal respiratory effort and clear to auscultation Abdomen Abdomen: Present soft, tender (Mild incisional tenderness), bowel sounds (Good active bowel sounds) and surgical scars (WithHealing midline incision; hyperemic ostomy in the left lower quadrant) Integumentary Integumentary: Present no rash, no growths and no abnormal pigmentation Neurologic Neurologic: Present normal coordination and normal sensation Musculoskeletal Musculoskeletal: Present normal gait and normal posture Psychiatric Psychiatric: Present oriented to time, oriented to person, oriented to place, speech is normal and memory intact Discharge Plan Patient/Caregiver Discharge Instructions Activity: as per physical therapy and increase activity as tolerated Diet: Regular Diet Prescriptions: New levofloxacin [levofloxacin] 750 MG tablet 750 mg PO DAILY Qty: 20 RF: 0 metronidazole [Flagyl] 500 mg tablet 500 mg PO TID Qty: 60 RF: 0 oxycodone-acetaminophen [Endocet] 10-325 mg tablet 1 tab PO Q4H PRN (Reason: Pain) Qty: 30 RF: 0 No Action hydrochlorothiazide 50 mg tablet See Rx Instructions .ROUTE .COMPLEX Qty: 30 RF: 6 gemfibrozil 600 mg tablet 600 mg PO QAM Qty: 90 RF: 1 levothyroxine 50 mcg tablet 50 mcg PO QDAY Qty: 90 RF: 1 Jardiance 25 mg tablet See Rx Instructions .ROUTE .COMPLEX Qty: 30 RF: 2 losartan 50 mg tablet See Rx Instructions .ROUTE .COMPLEX Qty: 30 RF: 1 glipizide-metformin 2.5-250 mg tablet 2 tab PO BID Qty: 120 RF: 2 bupropion HCl [Wellbutrin XL] 300 mg tablet extended release 24 hr 450 mg PO QAM Qty: 90 RF: 0 oxycodone-acetaminophen [Endocet] 10-325 mg Tablet 1 tab PO Q4H PRN (Reason: Pain) Qty: 40 RF: 0 promethazine 25 mg Tablet 25 mg PO Q4H PRN (Reason: Nausea) Qty: 30 RF: 0 levofloxacin [levofloxacin] 750 MG tablet 750 mg PO DAILY Qty: 15 RF: 0 metronidazole [Flagyl] 500 mg tablet 500 mg PO TID Qty: 45 RF: 0 Follow Up Plan Follow up with: Cr Deluca MD [Physician] - (Make appointment for 1 week in the office) Patient Disposition: Xfer SNF Prognosis: Good Rehab Potential: Good I certify that the patient requires SNF services: Yes Overall status at discharge: patient is progressing back to baseline Discharge Orders: Discharge Order (Routine); Ordered 10/28/20 Ordered By: Cr Deluca Pending Pending Pending: Resuscitation Status Full Code Diet Full Liquid Diet Start TueOct 26 1649 Bupropion HCl (Bupropion 150 Mg Tab.Xl.24h) 450 mg PO DAILY [facility] Last Admin: 10/28/20 07:56 Dose: 450 mg Documented by: Admin: 10/27/20 07:11 Dose: Not Given Documented by: Admin: 10/27/20 06:54 Dose: 450 mg Documented by: Admin: 10/26/20 09:41 Dose: 450 mg Documented by: BRIONNA Diagnostic Test (Pha) (Accu-Chek 1 Each Strip) 1 each FS Q6 [facility] Last Admin: 10/28/20 11:32 Dose: 1 each Documented by: Admin: 10/28/20 05:20 Dose: 1 each Documented by: Admin: 10/27/20 23:38 Dose: 1 each Documented by: Admin: 10/27/20 16:54 Dose: 1 each Documented by: Admin: 10/27/20 11:18 Dose: 1 each Documented by: Admin: 10/27/20 05:31 Dose: 1 each Documented by: Admin: 10/26/20 23:17 Dose: 1 each Documented by: Admin: 10/26/20 16:54 Dose: 1 each Documented by: Admin: 10/26/20 11:34 Dose: 1 each Documented by: Admin: 10/26/20 05:37 Dose: 1 each Documented by: Admin: 10/25/20 23:43 Dose: 1 each Documented by: Admin: 10/25/20 17:34 Dose: 1 each Documented by: Admin: 10/25/20 11:07 Dose: 1 each Documented by: Admin: 10/25/20 05:45 Dose: 1 each Documented by: Admin: 10/24/20 23:46 Dose: 1 each Documented by: Admin: 10/24/20 17:49 Dose: 1 each Documented by: Admin: 10/24/20 11:36 Dose: 1 each Documented by: Admin: 10/24/20 05:57 Dose: 1 each Documented by: Admin: 10/24/20 00:16 Dose: 1 each Documented by: Admin: 10/23/20 17:06 Dose: 1 each Documented by: Admin: 10/23/20 11:29 Dose: 1 each Documented by: Admin: 10/23/20 05:43 Dose: 1 each Documented by: Admin: 10/23/20 00:40 Dose: 1 each Documented by: Admin: 10/22/20 18:19 Dose: 1 each Documented by: BRIONNA Hydromorphone HCl (Hydromorphone 1 Mg/Ml Syringe) 1 mg IV Q2HP PRN; Protocol PRN Reason: Per Pain Protocol Last Admin: 10/26/20 09:41 Dose: 1 mg Documented by: Admin: 10/26/20 03:18 Dose: 1 mg Documented by: Admin: 10/25/20 21:59 Dose: 1 mg Documented by: Admin: 10/24/20 18:59 Dose: 1 mg Documented by: Admin: 10/23/20 17:12 Dose: 1 mg Documented by: Admin: 10/23/20 09:52 Dose: 1 mg Documented by: Admin: 10/23/20 03:45 Dose: 1 mg Documented by: Admin: 10/23/20 00:02 Dose: 1 mg Documented by: BLAINE Meropenem 1 gm/ Sodium (Chloride) 50 mls @ 100 mls/hr IV Q8H MAE; Protocol Last Infusion: 10/28/20 05:45 Dose: 0 mls/hr Documented by: Admin: 10/28/20 05:15 Dose: 100 mls/hr Documented by: Infusion: 10/27/20 22:33 Dose: 100 mls/hr Documented by: Admin: 10/27/20 22:03 Dose: 100 mls/hr Documented by: Infusion: 10/27/20 14:43 Dose: 0 mls/hr Documented by: Admin: 10/27/20 13:57 Dose: 100 mls/hr Documented by: Infusion: 10/27/20 06:05 Dose: 0 mls/hr Documented by: Admin: 10/27/20 05:28 Dose: 100 mls/hr Documented by: Infusion: 10/26/20 23:02 Dose: 0 mls/hr Documented by: Admin: 10/26/20 22:00 Dose: 100 mls/hr Documented by: Infusion: 10/26/20 14:19 Dose: 0 mls/hr Documented by: Admin: 10/26/20 13:31 Dose: 100 mls/hr Documented by: Infusion: 10/26/20 06:14 Dose: 0 mls/hr Documented by: Admin: 10/26/20 05:33 Dose: 100 mls/hr Documented by: Infusion: 10/26/20 00:00 Dose: 0 mls/hr Documented by: Admin: 10/25/20 22:03 Dose: 100 mls/hr Documented by: Infusion: 10/25/20 14:33 Dose: 0 mls/hr Documented by: Admin: 10/25/20 13:56 Dose: 100 mls/hr Documented by: Infusion: 10/25/20 06:51 Dose: 0 mls/hr Documented by: Admin: 10/25/20 05:45 Dose: 100 mls/hr Documented by: Infusion: 10/24/20 22:50 Dose: 0 mls/hr Documented by: Admin: 10/24/20 22:16 Dose: 100 mls/hr Documented by: Infusion: 10/24/20 13:45 Dose: 0 mls/hr Documented by: Admin: 10/24/20 13:12 Dose: 100 mls/hr Documented by: Infusion: 10/24/20 06:25 Dose: 0 mls/hr Documented by: Admin: 10/24/20 05:52 Dose: 100 mls/hr Documented by: Infusion: 10/23/20 22:45 Dose: 0 mls/hr Documented by: Admin: 10/23/20 22:12 Dose: 100 mls/hr Documented by: Infusion: 10/23/20 15:20 Dose: 0 mls/hr Documented by: Admin: 10/23/20 14:50 Dose: 100 mls/hr Documented by: Infusion: 10/23/20 06:15 Dose: 0 mls/hr Documented by: Admin: 10/23/20 05:44 Dose: 100 mls/hr Documented by: Infusion: 10/22/20 22:58 Dose: 0 mls/hr Documented by: Admin: 10/22/20 22:27 Dose: 100 mls/hr Documented by: JOSR Metronidazole (Flagyl) 500 mg in 100 mls @ 100 mls/hr IV Q6H MAE; Protocol Last Infusion: 10/28/20 08:57 Dose: 0 mls/hr Documented by: Admin: 10/28/20 07:57 Dose: 100 mls/hr Documented by: Infusion: 10/28/20 01:40 Dose: 0 mls/hr Documented by: Admin: 10/28/20 00:34 Dose: 100 mls/hr Documented by: Infusion: 10/27/20 20:00 Dose: 0 mls/hr Documented by: Admin: 10/27/20 18:32 Dose: 100 mls/hr Documented by: Infusion: 10/27/20 14:52 Dose: 0 mls/hr Documented by: Admin: 10/27/20 13:59 Dose: 100 mls/hr Documented by: Infusion: 10/27/20 08:30 Dose: 0 mls/hr Documented by: Admin: 10/27/20 06:54 Dose: 100 mls/hr Documented by: Infusion: 10/27/20 02:20 Dose: 0 mls/hr Documented by: Admin: 10/27/20 01:17 Dose: 100 mls/hr Documented by: Infusion: 10/26/20 20:00 Dose: 0 mls/hr Documented by: Admin: 10/26/20 18:54 Dose: 100 mls/hr Documented by: Infusion: 10/26/20 13:21 Dose: 0 mls/hr Documented by: Admin: 10/26/20 12:16 Dose: 100 mls/hr Documented by: Infusion: 10/26/20 07:59 Dose: 0 mls/hr Documented by: Admin: 10/26/20 06:48 Dose: 100 mls/hr Documented by: Infusion: 10/26/20 02:10 Dose: 0 mls/hr Documented by: Admin: 10/26/20 01:10 Dose: 100 mls/hr Documented by: Infusion: 10/25/20 22:04 Dose: 0 mls/hr Documented by: Admin: 10/25/20 18:32 Dose: 100 mls/hr Documented by: Infusion: 10/25/20 13:35 Dose: 0 mls/hr Documented by: Admin: 10/25/20 12:35 Dose: 100 mls/hr Documented by: Infusion: 10/25/20 08:42 Dose: 0 mls/hr Documented by: Admin: 10/25/20 07:16 Dose: 100 mls/hr Documented by: Infusion: 10/25/20 02:05 Dose: 0 mls/hr Documented by: Admin: 10/25/20 01:05 Dose: 100 mls/hr Documented by: Infusion: 10/24/20 20:05 Dose: 0 mls/hr Documented by: Admin: 10/24/20 19:03 Dose: 100 mls/hr Documented by: Infusion: 10/24/20 13:50 Dose: 0 mls/hr Documented by: Admin: 10/24/20 12:48 Dose: 100 mls/hr Documented by: Infusion: 10/24/20 09:50 Dose: 0 mls/hr Documented by: Admin: 10/24/20 08:50 Dose: 100 mls/hr Documented by: Infusion: 10/24/20 01:20 Dose: 0 mls/hr Documented by: Admin: 10/24/20 00:17 Dose: 100 mls/hr Documented by: Infusion: 10/23/20 20:00 Dose: 0 mls/hr Documented by: Admin: 10/23/20 18:58 Dose: 100 mls/hr Documented by: Infusion: 10/23/20 13:10 Dose: 0 mls/hr Documented by: Admin: 10/23/20 12:10 Dose: 100 mls/hr Documented by: Infusion: 10/23/20 08:55 Dose: 0 mls/hr Documented by: Admin: 10/23/20 07:55 Dose: 100 mls/hr Documented by: Infusion: 10/23/20 01:45 Dose: 0 mls/hr Documented by: Admin: 10/23/20 00:44 Dose: 100 mls/hr Documented by: Infusion: 10/22/20 20:45 Dose: 0 mls/hr Documented by: Admin: 10/22/20 19:43 Dose: 100 mls/hr Documented by: JOSR Sodium Chloride (Sodium Chloride 0.9%) 1,000 mls @ 150 mls/hr IV .Q6H40M [facility]E Last Admin: 10/28/20 10:14 Dose: Not Given Documented by: Infusion: 10/28/20 10:14 Dose: 0 mls/hr Documented by: Admin: 10/28/20 03:11 Dose: 150 mls/hr Documented by: Admin: 10/27/20 22:21 Dose: Not Given Documented by: Infusion: 10/27/20 17:58 Dose: 150 mls/hr Documented by: Admin: 10/27/20 14:07 Dose: Not Given Documented by: Admin: 10/27/20 11:17 Dose: 150 mls/hr Documented by: Infusion: 10/27/20 08:02 Dose: 150 mls/hr Documented by: Admin: 10/27/20 07:11 Dose: Not Given Documented by: Admin: 10/27/20 01:21 Dose: 150 mls/hr Documented by: Infusion: 10/26/20 23:35 Dose: 150 mls/hr Documented by: Admin: 10/26/20 23:21 Dose: Not Given Documented by: Admin: 10/26/20 16:54 Dose: 150 mls/hr Documented by: Infusion: 10/26/20 13:27 Dose: 150 mls/hr [place]ed by: [facility] [place]: 10/26/20 13:21 Dose: Not Given Documented by: Admin: 10/26/20 06:46 Dose: 150 mls/hr Documented by: Infusion: 10/26/20 04:43 Dose: 150 mls/hr Documented by: Admin: 10/25/20 22:02 Dose: 150 mls/hr Documented by: Admin: 10/25/20 17:36 Dose: Not Given Documented by: Infusion: 10/25/20 17:18 Dose: 150 mls/hr Documented by: Admin: 10/25/20 10:37 Dose: 150 mls/hr Documented by: Infusion: 10/25/20 06:27 Dose: 150 mls/hr Documented by: Admin: 10/25/20 05:49 Dose: Not Given Documented by: Admin: 10/24/20 23:46 Dose: 150 mls/hr Documented by: Infusion: 10/24/20 18:32 Dose: 150 mls/hr Documented by: Infusion: 10/24/20 18:18 Dose: 150 mls/hr Documented by: Infusion: 10/24/20 15:21 Dose: 0 mls/hr Documented by: Admin: 10/24/20 15:12 Dose: Not Given Documented by: Admin: 10/24/20 08:55 Dose: 150 mls/hr Documented by: Infusion: 10/24/20 04:51 Dose: 150 mls/hr Documented by: Admin: 10/24/20 01:25 Dose: Not Given Documented by: Admin: 10/23/20 22:10 Dose: 150 mls/hr Documented by: Infusion: 10/23/20 18:14 Dose: 150 mls/hr Documented by: Admin: 10/23/20 11:33 Dose: 150 mls/hr Documented by: Infusion: 10/23/20 08:51 Dose: 150 mls/hr Documented by: Admin: 10/23/20 05:48 Dose: Not Given Documented by: Admin: 10/23/20 02:10 Dose: 150 mls/hr Documented by: Infusion: 10/22/20 22:44 Dose: 150 mls/hr Documented by: Admin: 10/22/20 16:03 Dose: 150 mls/hr Documented by: BRIONNA Insulin Human Lispro (Insulin Lispro 1 Unit/0.01 Ml Unit) 0 unit SQ Q6 MAE; Protocol Last Admin: 10/28/20 11:35 Dose: Not Given Documented by: Admin: 10/28/20 05:20 Dose: 2 units Documented by: Admin: 10/27/20 23:38 Dose: 4 units Documented by: Admin: 10/27/20 16:55 Dose: Not Given Documented by: Admin: 10/27/20 11:20 Dose: 4 units Documented by: Admin: 10/27/20 05:33 Dose: Not Given Documented by: Admin: 10/26/20 23:18 Dose: 6 units Documented by: Admin: 10/26/20 16:57 Dose: Not Given Documented by: Admin: 10/26/20 11:36 Dose: 6 units Documented by: Admin: 10/26/20 05:38 Dose: 4 units Documented by: Admin: 10/25/20 23:43 Dose: Not Given Documented by: Admin: 10/25/20 17:36 Dose: 6 units Documented by: Admin: 10/25/20 11:08 Dose: Not Given Documented by: Admin: 10/25/20 05:49 Dose: Not Given Documented by: Admin: 10/24/20 23:53 Dose: Not Given Documented by: Admin: 10/24/20 17:54 Dose: 4 units Documented by: Admin: 10/24/20 11:46 Dose: 2 units Documented by: Admin: 10/24/20 05:57 Dose: Not Given Documented by: Admin: 10/24/20 00:16 Dose: Not Given Documented by: Admin: 10/23/20 17:08 Dose: Not Given Documented by: Admin: 10/23/20 11:31 Dose: Not Given Documented by: Admin: 10/23/20 05:44 Dose: Not Given Documented by: Admin: 10/23/20 00:40 Dose: Not Given Documented by: Admin: 10/22/20 18:20 Dose: Not Given Documented by: BRIONNA Levothyroxine Sodium (Levothyroxine 50 Mcg Tablet) 50 mcg PO QAMAC [facility] Last Admin: 10/28/20 07:56 Dose: 50 mcg Documented by: Admin: 10/27/20 06:54 Dose: 50 mcg Documented by: BRIONNA Lorazepam (Lorazepam 2 Mg/Ml Vial) 1 mg IV Q6HP PRN PRN Reason: ANXIETY/SEDATION Last Admin: 10/25/20 05:54 Dose: 1 mg Documented by: Admin: 10/24/20 04:24 Dose: 1 mg Documented by: JOSR Ondansetron HCl (Ondansetron 4 Mg/2 Ml Vial) 4 mg IV Q4HP PRN; Protocol PRN Reason: Nausea/Vomiting Last Admin: 10/26/20 23:13 Dose: 4 mg Documented by: Admin: 10/26/20 18:39 Dose: 4 mg Documented by: Admin: 10/26/20 10:26 Dose: 4 mg Documented by: Admin: 10/25/20 12:38 Dose: 4 mg Documented by: BRIONNA Pantoprazole Sodium (Pantoprazole 40 Mg Tablet) 40 mg PO BIDAC [facility] Last Admin: 10/28/20 07:56 Dose: 40 mg Documented by: Admin: 10/27/20 16:54 Dose: 40 mg Documented by: Admin: 10/27/20 06:55 Dose: 40 mg Documented by: Admin: 10/26/20 16:58 Dose: 40 mg Documented by: BRIONNA Shift Summary 10/28/20 02:52 Shift Summary by Pao Quiñones Pt is A/O, calling appropriately and makes needs known. Using a urinal at bedside, up with 1 A, FWW and gait belt. Walked in hallway last night. Abd midline incision with 26 madisyn, covered with tagaderm dressing. LLQ colostomy draining small amts of liquid brown stool. RLQ SYDNEE drains x3 with small amts of serosanguineous fluid. Pt got education for stoma care yesterday by nurse. Tolerating full liquid diet, no c/o of nausea or pain. NOC BG 183, covered with 4 units. Continues with IV NS @ 150ml/hr. IV abx, PIV x2. Plan to d/c today. Initialized on 10/28/20 02:52 - END OF NOTE
== END 2020-10-28 14:17 | DRG 329 ==
LOC: MEDSUR 12:04
PROVIDERS: ADMIT Family Medicine Adult Medicine; ATTEND Family Medicine Adult Medicine

== ENCOUNTER 2021-02-06 04:59 | Inpatient (IN) ==
[2021-02-06] MEDS ORDERED: IPRATROPIUM/ALBUTEROL 3 ML AMPUL.NEB NEB PRN ×3 (05:00→09:55)
[2021-02-06] MEDS ORDERED: SCOPOLAMINE 1 PATCH PATCH TOPICAL PRN ×2 (05:00)
[2021-02-06 05:21] LABS: POC Blood Urea Nitrogen 20 mg/dL (6-20); POC CO2 26 mmol/L (22-30); POC Calcium, Ionized 1.19 mmEq/L (1.16-1.32); POC Chloride 96 mEq/L (96-108); POC Creatinine 1.2 mg/dL (0.6-1.2); POC Glucose, Random 170 mg/dL (70-105); POC Hematocrit 50 % (41-55); POC Potassium 3.5 mEql/L (3.3-5.1); POC Sodium 137 mEq/L (133-145)
[2021-02-06] MEDS ORDERED: metroNIDAZOLE 500 MG/100 ML BAG IV SCH (06:00)
[2021-02-06] MEDS ORDERED: CEFEPIME 2 GM VIAL IV SCH (06:00)
[2021-02-06] MEDS ORDERED: KETAMINE 50 MG/ML Syringe (ANEST) IV ONE (08:03)
[2021-02-06] MEDS ORDERED: HYDROmorphone 1 MG/ML SYRINGE ONE (08:03)
[2021-02-06] MEDS ORDERED: PROPOFOL 200 MG/20 ML VIAL IV ONE (08:03)
[2021-02-06] MEDS ORDERED: ONDANSETRON 4 MG/2 ML VIAL ONE (08:03)
[2021-02-06] MEDS ORDERED: ROPIVACAINE HCL/PF 20 ML VIAL IJ ONE (08:03)
[2021-02-06] MEDS ORDERED: DEXAMETHASONE 10 MG/ML VIAL ONE (08:03)
[2021-02-06] MEDS ORDERED: SUGAMMADEX SODIUM 200 MG/2 ML VIAL IV ONE (08:03)
[2021-02-06] MEDS ORDERED: fentaNYL 250 MCG/5 ML VIAL IV ONE (08:03)
[2021-02-06] MEDS ORDERED: LIDOCAINE HCL/PF 100 MG/5 ML SYRINGE IV ONE (08:03)
[2021-02-06] MEDS ORDERED: MAGNESIUM SULFATE 2 GM/50 ML BAG IV ONE (08:03)
[2021-02-06] MEDS ORDERED: ROCURONIUM 10 MG/ML ML IV ONE (08:03)
[2021-02-06] MEDS ORDERED: NALOXONE HCL 0.4 MG/ML VIAL IV PRN (09:55)
[2021-02-06] MEDS ORDERED: ONDANSETRON 4 MG/2 ML VIAL IV PRN ×2 (09:55→10:42)
[2021-02-06] MEDS ORDERED: PROMETHAZINE 25 MG/ML VIAL IV PRN (09:55)
[2021-02-06] MEDS ORDERED: LACTATED RINGERS 250 ML IV PRN (09:55)
[2021-02-06] MEDS ORDERED: HYDROmorphone 0.5 MG/0.5 ML SYRINGE IV PRN (09:55)
[2021-02-06] MEDS ORDERED: diphenhydrAMINE 50 MG/ML VIAL IV PRN (09:55)
[2021-02-06] MEDS ORDERED: MEPERIDINE 25 MG/ML VIAL IV PRN (09:55)
[2021-02-06] MEDS ORDERED: ACETAMINOPHEN 1,000 MG/100 ML BAG IV ONE (09:55)
[2021-02-06] MEDS ORDERED: LACTATED RINGERS 1,000 ML IV SCH (10:00)
[2021-02-06] MEDS ORDERED: ACETAMINOPHEN 1,000 MG/100 ML BAG IV PRN (10:37)
--- NOTE | 2021-02-06 10:37 | Brief Operative Note ---
Brief Operative Note Date of procedure: 02/06/21 Pre-op diagnosis: colostomy status Post-op diagnosis: other (colostomy status) Procedure: colostomy take down Grafts/Implants: No Anesthesia: GETA Findings: extensive scarring and adhesion in entire abdomen Complications: none Surgeon: Cr Deluca Estimated blood loss (cc): 50 Specimens Removed/Pathology: other (stoma stump) Condition: stable Disposition: PACU
[2021-02-06] MEDS ORDERED: fentaNYL 100 MCG/2 ML VIAL IV PRN (10:42)
[2021-02-06] MEDS ORDERED: diphenhydrAMINE 25 MG CAPSULE PO PRN (10:42)
[2021-02-06] MEDS ORDERED: DEXTROSE 50% 50 ML VIAL IV PRN (10:53)
[2021-02-06] MEDS ORDERED: DEXTROSE 31 GM ORAL.SUSP PO PRN (10:53)
[2021-02-06] MEDS: fentaNYL 100 MCG/2 ML VIAL IV PRN ×2 (11:11→11:19)
[2021-02-06] MEDS: 0.9 % SODIUM CHLORIDE 1,000 ML IV SCH ×2 (11:46→21:09)
[2021-02-06] MEDS: LEVOFLOXACIN 750 MG/150 ML BAG IV SCH (11:55)
[2021-02-06] MEDS: metroNIDAZOLE 500 MG/100 ML BAG IV SCH ×3 (11:58→23:41)
[2021-02-06] MEDS: INSULIN LISPRO 1 UNIT/0.01 ML UNIT SQ SCH ×3 (12:50→23:43)
[2021-02-06] MEDS: 0.9 % SODIUM CHLORIDE 10 ML SYRINGE IV SCH ×4 (13:14→21:15)
[2021-02-06] MEDS ORDERED: BENZOCAINE 1 SPRAY BOTTLE TOPICAL PRN (14:08)
[2021-02-06] MEDS: HYDROmorphone 1 MG/ML SYRINGE IV PRN ×3 (16:15→23:42)
[2021-02-06] MEDS: DOCUSATE SODIUM 100 MG CAPSULE PO SCH (21:14)
[2021-02-06] MEDS: SENNOSIDES 1 TABLET PO SCH (21:14)
[2021-02-07] MEDS: HYDROmorphone 1 MG/ML SYRINGE IV PRN ×4 (03:03→20:08)
[2021-02-07] MEDS: 0.9 % SODIUM CHLORIDE 1,000 ML IV SCH ×6 (05:12→23:42)
[2021-02-07] MEDS: metroNIDAZOLE 500 MG/100 ML BAG IV SCH (05:12)
[2021-02-07] MEDS: 0.9 % SODIUM CHLORIDE 10 ML SYRINGE IV SCH ×5 (05:12→22:09)
[2021-02-07] MEDS: INSULIN LISPRO 1 UNIT/0.01 ML UNIT SQ SCH ×3 (05:16→17:45)
[2021-02-07 06:42] LABS: Basophils # (Auto) 0.02 K/mcL (0.00-0.30); Basophils % (Auto) 0.2 % (0.0-2.0); Eosinophils # (Auto) 0 K/mcL (0.00-0.70); Eosinophils % (Auto) 0 % (0.0-7.0); Hematocrit 48.7 % (40.1-51.0); Hemoglobin 16.1 g/dL (13.7-17.5); Lymphocytes # (Auto) 0.63 K/mcL (1.50-4.80); Lymphocytes % (Auto) 5.9 % (15.5-49.0); Mean Cell Volume 86.2 fL (80.0-100.0); Mean Corpuscular HGB Conc 33.1 g/dL (31.0-36.0); Mean Platelet Volume 10.5 fL (7.4-10.4); Monocytes % (Auto) 8.5 % (1.0-12.0); Neutrophils % (Auto) 85.4 % (38.0-78.0); Platelet Count 253 K/mcL (140-440); RBC 5.65 M/mcL (4.63-6.08); Red Cell Distribution Width 13.7 % (11.5-14.5); WBC 10.6 K/mcL (4.5-11.0)
[2021-02-07 07:10] LABS: ALT/SGPT 14 U/L (<40); AST/SGOT 13 U/L (<40); Albumin 3.8 gm/dL (3.2-5.2); Albumin/Globulin Ratio 1.3 (1.0-2.3); Alkaline Phosphatase 66 U/L (39-117); Bilirubin,Direct < 0.2 mg/dL (0-0.3); Bilirubin,Total 0.8 mg/dL (0.1-1.0); Blood Urea Nitrogen 15 mg/dL (8-23); Calcium 8.9 mg/dL (8.6-10.4); Carbon Dioxide 26 mmol/L (22-30); Chloride 99 mmol/L (96-108); Glomerular Filtration Rate 89; Glucose 155 mg/dL (70-105); Lactate Dehydrogenase 148 U/L (135-225); Phosphorous 3.5 mg/dL (2.5-4.5); Triglycerides 157 mg/dL (<150); Uric Acid 8.2 mg/dL (2.5-8.0)
[2021-02-07] MEDS: ONDANSETRON 4 MG/2 ML VIAL IV PRN ×2 (07:43→20:13)
[2021-02-07] MEDS: LEVOTHYROXINE 50 MCG TABLET PO SCH (07:44)
[2021-02-07] MEDS: LEVOFLOXACIN 750 MG/150 ML BAG IV SCH (08:31)
[2021-02-07] MEDS: buPROPion 150 MG TAB.XL.24H PO SCH (08:32)
[2021-02-07] MEDS: DOCUSATE SODIUM 100 MG CAPSULE PO SCH ×2 (08:32→22:09)
[2021-02-07] MEDS ORDERED: buPROPion 300 MG TAB.XL.24H PO SCH (09:00)
--- NOTE | 2021-02-07 13:18 | General Surgery Progress Note ---
SUBJECTIVE Subjective Patient information: Note initiated : 02/07/21 at 1:12 pm Service Date, if different from initiated Date: [] Patient: Agustin Goldsmith 65 y/o M admitted on 02/06/21 for Colostomy Takedown & Closure. Chief Complaint: [] Principal diagnosis: Colostomy takedown Interval history: Patient is doing well. He is mobile and states that his pain is controlled. He has hypoactive bowel sounds. Incision and stoma site unremarkable SYDNEE drainage is serosanguineous. Potassium 3.3, BUN 15, creatinine 0.9, white count 10.6, hemoglobin 16.1, hematocrit 48.7. Constitutional Vitals: Vital Signs Temp Pulse Resp BP Pulse Ox 97.4 F 82 16 128/76 94 02/07/21 11:34 02/07/21 11:34 02/07/21 11:34 02/07/21 11:34 02/07/21 11:34 Period Temp Pulse Resp BP Sys/Goodrich Pulse Ox Last 24 Hr 97 F-97.8 F 79-100 16-20 121-128/75-85 92-96 Intake and Output 02/06/21 02/07/21 02/07/21 21:59 05:59 13:59 Intake Total 1350 1200 250 Output Total 1205 1760 Balance 145 -560 250 Weight 221 lb Intake & Output: Intake & Output 02/06/21 02/07/21 02/07/21 21:59 05:59 13:59 Intake Total 1350 1200 250 Output Total 1205 1760 Balance 145 -560 250 Weight 221 lb Intake: IV 1250 1200 250 Sodium Chloride 0.9% 1,000 ml @ 1000 1000 125 mls/hr IV .Q8H [facility] Rx#: [id number] Oral 100 Output: Gastric Drainage 500 1400 Right Nare 500 1400 Drainage 30 10 Right SYDNEE Drain 30 10 Urine Catheter Amount 675 350 Other: Urine Appearance Clear Clear Uretheral (Starr) Clear Clear Urine Color Bright Yellow Bright Yellow Uretheral (Starr) Bright Yellow Bright Yellow Eye Eye exam: Present EOMI and normal appearance Pupils: Present normal accommodation and PERRL ENT ENT exam: Present mucous membranes moist, normal exam, normal external ear exam, normal oropharynx and TM's normal bilaterally Neck Neck exam: Present full ROM; Absent tenderness Respiratory Respiratory exam: Present normal respiratory exam and CTAB; Absent rhonchi and wheezes Cardiovascular Cardiovascular exam: Present normal rate and rhythm, RRR, +S1 and +S2; Absent JVD GI/Abdominal GI/Abdominal exam: Present diminished bowel sounds and distended Additional comments: Incision looks good; there are active bowel sounds; SYDNEE drainage is serosanguineous Extremities Exam Extremities exam: Present full ROM, normal inspection and neurovascular intact; Absent calf tenderness Neurological Exam Neurological exam: Present alert, normal gait, oriented X3 and reflexes normal Psychiatric Psychiatric exam: Present normal affect and normal mood A/P Assessment and plan (1) Colostomy in place: Status: Acute (2) Intra-abdominal abscess: Status: Acute (3) DMII (diabetes mellitus, type 2): Status: Chronic Comment: dx 2009 Qualifiers: Diabetes mellitus complication status: without complication 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 He will be continued on presents therapy Encourage people to ambulate Time Spent With Patient Time: Total time spent is greater than 50% in coordination of care (as documented) at patient's floor/unit and/or counseling patient:
[2021-02-07] MEDS: SENNOSIDES 1 TABLET PO SCH (22:09)
[2021-02-08] MEDS: INSULIN LISPRO 1 UNIT/0.01 ML UNIT SQ SCH ×5 (00:24→23:58)
[2021-02-08] MEDS: HYDROmorphone 1 MG/ML SYRINGE IV PRN (04:00)
[2021-02-08] MEDS: 0.9 % SODIUM CHLORIDE 1,000 ML IV SCH ×4 (04:01→20:23)
[2021-02-08] MEDS: 0.9 % SODIUM CHLORIDE 10 ML SYRINGE IV SCH ×3 (05:36→20:24)
[2021-02-08 06:37] LABS: Basophils # (Auto) 0.05 K/mcL (0.00-0.30); Basophils % (Auto) 0.5 % (0.0-2.0); Eosinophils # (Auto) 0.03 K/mcL (0.00-0.70); Eosinophils % (Auto) 0.3 % (0.0-7.0); Hematocrit 46.1 % (40.1-51.0); Hemoglobin 15.2 g/dL (13.7-17.5); Lymphocytes # (Auto) 0.91 K/mcL (1.50-4.80); Lymphocytes % (Auto) 8.6 % (15.5-49.0); Mean Cell Volume 88.3 fL (80.0-100.0); Mean Platelet Volume 10.8 fL (7.4-10.4); Monocytes # (Auto) 0.98 K/mcL (0.10-0.90); Monocytes % (Auto) 9.2 % (1.0-12.0); Neutrophils % (Auto) 81.4 % (38.0-78.0); Platelet Count 245 K/mcL (140-440); RBC 5.22 M/mcL (4.63-6.08); Red Cell Distribution Width 13.5 % (11.5-14.5); WBC 10.6 K/mcL (4.5-11.0)
[2021-02-08 07:04] LABS: ALT/SGPT 11 U/L (<40); AST/SGOT 11 U/L (<40); Albumin 3.5 gm/dL (3.2-5.2); Albumin/Globulin Ratio 1.1 (1.0-2.3); Alkaline Phosphatase 62 U/L (39-117); Bilirubin,Direct < 0.2 mg/dL (0-0.3); Bilirubin,Total 0.6 mg/dL (0.1-1.0); Blood Urea Nitrogen 14 mg/dL (8-23); Carbon Dioxide 33 mmol/L (22-30); Chloride 101 mmol/L (96-108); Globulin 3.1 gm/dL (2.2-3.7); Glomerular Filtration Rate 89; Glucose 138 mg/dL (70-105); Lactate Dehydrogenase 146 U/L (135-225); Phosphorous 2.2 mg/dL (2.5-4.5); Triglycerides 106 mg/dL (<150); Uric Acid 8.8 mg/dL (2.5-8.0)
[2021-02-08] MEDS: LEVOTHYROXINE 50 MCG TABLET PO SCH (07:10)
[2021-02-08] MEDS: DOCUSATE SODIUM 100 MG CAPSULE PO SCH ×2 (08:10→20:23)
[2021-02-08] MEDS: buPROPion 150 MG TAB.XL.24H PO SCH (08:10)
[2021-02-08] MEDS: LEVOFLOXACIN 750 MG/150 ML BAG IV SCH (09:21)
--- NOTE | 2021-02-08 15:17 | General Surgery Progress Note ---
SUBJECTIVE Subjective Patient information: Note initiated : 02/08/21 at 3:12 pm Service Date, if different from initiated Date: [] Patient: Agustin Goldsmith 65 y/o M admitted on 02/06/21 for Colostomy Takedown & Closure. Chief Complaint: [] Principal diagnosis: Colostomy takedown Interval history: Patient is doing well. He has not had flatus so far. His pain is controlled. He denies nausea. He has not had flatus. Potassium 3.1, BUN 14, creatinine 0.9, phosphorus 2.2, white blood count 10.6, hemoglobin 15.2, hematocrit 46.1. Patient is afebrile. Constitutional Vitals: Vital Signs Temp Pulse Resp BP Pulse Ox 97.2 F 69 18 139/75 91 02/08/21 12:00 02/08/21 12:00 02/08/21 12:00 02/08/21 12:00 02/08/21 12:00 Period Temp Pulse Resp BP Sys/Goodrich Pulse Ox Last 24 Hr 97.2 F-98.1 F 58-86 18-19 132-139/75-85 91-94 Intake and Output 02/08/21 02/08/21 02/08/21 05:59 13:59 21:59 Intake Total 1107 Output Total 700 450 Balance 407 -450 Weight 218 lb 1 oz Patient Weight 02/09/21 05:59 Weight 218 lb 1 oz Intake & Output: Intake & Output 02/08/21 02/08/21 02/08/21 05:59 13:59 21:59 Intake Total 1107 Output Total 700 450 Balance 407 -450 Weight 218 lb 1 oz Intake: IV 1107 Sodium Chloride 0.9% 1,000 ml @ 1000 125 mls/hr IV .Q8H [facility] Rx#: [id number] Oral Output: Gastric Drainage 700 Right Nare 700 Drainage Right SYDNEE Drain Void Amount 450 Other: Urine Appearance Urine Color Dark Yellow Neck Neck exam: Present full ROM Respiratory Respiratory exam: Present normal respiratory exam and CTAB Cardiovascular Cardiovascular exam: Present normal rate and rhythm, RRR, +S1 and +S2; Absent JVD GI/Abdominal GI/Abdominal exam: Present diminished bowel sounds and distended; Absent soft Extremities Exam Extremities exam: Present full ROM, normal inspection and neurovascular intact Neurological Exam Neurological exam: Present alert, oriented X3 and reflexes normal Psychiatric Psychiatric exam: Present normal affect and normal mood A/P Assessment and plan (1) Colostomy in place: Status: Acute (2) DMII (diabetes mellitus, type 2): Status: Chronic Comment: dx 2009 Qualifiers: Diabetes mellitus complication status: without complication Diabetes mellitus longterm insulin use: without longterm use Qualified Code(s): E11.9 - Type 2 diabetes mellitus without complications Narrative A/P Narrative: Patient can tenderness to improve. Will replace potassium chloride. Continue activity with ambulation. Continue nasogastric suction. Time Spent With Patient Time: Total time spent is greater than 50% in coordination of care (as documented) at patient's floor/unit and/or counseling patient:
[2021-02-08] MEDS ORDERED: POTASSIUM CHLORIDE 40 MEQ in DEXTROSE 5% IN WATER 500 ML IV ONE (16:00)
[2021-02-08] MEDS: SENNOSIDES 1 TABLET PO SCH (20:23)
[2021-02-09] MEDS: 0.9 % SODIUM CHLORIDE 1,000 ML IV SCH ×3 (04:52→21:13)
[2021-02-09] MEDS: 0.9 % SODIUM CHLORIDE 10 ML SYRINGE IV SCH ×3 (05:58→21:14)
[2021-02-09] MEDS: INSULIN LISPRO 1 UNIT/0.01 ML UNIT SQ SCH ×4 (06:01→23:31)
[2021-02-09 06:44] LABS: Basophils # (Auto) 0.05 K/mcL (0.00-0.30); Basophils % (Auto) 0.7 % (0.0-2.0); Eosinophils # (Auto) 0.13 K/mcL (0.00-0.70); Eosinophils % (Auto) 1.8 % (0.0-7.0); Hemoglobin 14.4 g/dL (13.7-17.5); Lymphocytes # (Auto) 0.84 K/mcL (1.50-4.80); Lymphocytes % (Auto) 11.4 % (15.5-49.0); Mean Cell Volume 89.5 fL (80.0-100.0); Mean Platelet Volume 10.3 fL (7.4-10.4); Monocytes # (Auto) 0.57 K/mcL (0.10-0.90); Monocytes % (Auto) 7.8 % (1.0-12.0); Neutrophils % (Auto) 78.3 % (38.0-78.0); Platelet Count 243 K/mcL (140-440); RBC 5.03 M/mcL (4.63-6.08); Red Cell Distribution Width 13.5 % (11.5-14.5); WBC 7.3 K/mcL (4.5-11.0)
[2021-02-09 07:12] LABS: ALT/SGPT 9 U/L (<40); AST/SGOT 11 U/L (<40); Albumin 3.3 gm/dL (3.2-5.2); Alkaline Phosphatase 60 U/L (39-117); Bilirubin,Direct < 0.2 mg/dL (0-0.3); Bilirubin,Total 0.5 mg/dL (0.1-1.0); Blood Urea Nitrogen 13 mg/dL (8-23); Calcium 9.2 mg/dL (8.6-10.4); Carbon Dioxide 35 mmol/L (22-30); Chloride 101 mmol/L (96-108); Globulin 3.3 gm/dL (2.2-3.7); Glomerular Filtration Rate 93; Glucose 134 mg/dL (70-105); Lactate Dehydrogenase 142 U/L (135-225); Phosphorous 2.6 mg/dL (2.5-4.5); Triglycerides 123 mg/dL (<150); Uric Acid 8.5 mg/dL (2.5-8.0)
[2021-02-09] MEDS: LEVOFLOXACIN 750 MG/150 ML BAG IV SCH (08:57)
[2021-02-09] MEDS: DOCUSATE SODIUM 100 MG CAPSULE PO SCH ×2 (08:58→21:14)
[2021-02-09] MEDS: LEVOTHYROXINE 50 MCG TABLET PO SCH (08:59)
[2021-02-09] MEDS: buPROPion 150 MG TAB.XL.24H PO SCH (08:59)
[2021-02-09] MEDS: HYDROmorphone 1 MG/ML SYRINGE IV PRN ×2 (10:04→21:13)
--- NOTE | 2021-02-09 12:31 | Surgical Pathology Report ---
Histology Microscopic Diagnosis Specimen A- COLON AND SKIN, COLOSTOMY TAKEDOWN. --- COLOSTOMY SITE WITH MILD ACUTE AND CHRONIC INFLAMMATION. --- COLON DONUT WITH ERODED MUCOSA AND MODERATE ACUTE AND CHRONIC INFLAMMATION. (DMT) Gross Description The specimen is received as colon resection ostomy head, and consists of a cutaneous ostomy with attached bowel that measures 6 x 5.5 x 4.5 cm in maximum dimension. The sutured ostomy measures up to 3.5 x 1 cm. The segment of bowel has a length up to 4.5 cm and a diameter of 3.5 cm. Also present are two additional portions of hyperemic adipose tissue that measure 3 x 4.5 x 1.2 cm in aggregate dimension. The fourth portion of tissue is a sutured bowel donut that measure 3 x 2 x 1.5 cm. The associated bowel has garcia mucosa with no gross lesions. Surgical madisyn are noted underlying the skin surface and within the separate donut. Ge[employer] Operations Manager sections are submitted: A1-A2 - skin and attached bowel; A3 - the separate received donut. (ACP:daniel) Electronically Signed Glynn Hunter MD, FCAP Electronically Signed 02/09/2021 12:29
--- NOTE | 2021-02-09 13:46 | General Surgery Progress Note ---
SUBJECTIVE Subjective Patient information: Note initiated : 02/09/21 at 1:42 pm Service Date, if different from initiated Date: [] Patient: Agustin Goldsmith 65 y/o M admitted on 02/06/21 for Colostomy Takedown & Closure. Chief Complaint: [] Principal diagnosis: Colostomy takedown Interval history: Patient is clinically stable. He has had flatus but has not had a bowel movement. He denies nausea. His pain is adequately controlled. Potassium 2.8, BUN 13, creatinine 0.8 Constitutional Vitals: Vital Signs Temp Pulse Resp BP Pulse Ox 97.9 F 58 L 18 134/76 93 02/09/21 12:00 02/09/21 12:00 02/09/21 12:00 02/09/21 12:00 02/09/21 12:00 Period Temp Pulse Resp BP Sys/Goodrich Pulse Ox Last 24 Hr 96.8 F-98.1 F 58-80 18-18 116-142/73-76 92-94 Intake and Output 02/08/21 02/09/21 02/09/21 21:59 05:59 13:59 Intake Total 1770 1810 1098 Output Total 825 2280 Balance 945 -470 1098 Weight 216 lb 3 oz Intake & Output: Intake & Output 02/08/21 02/09/21 02/09/21 21:59 05:59 13:59 Intake Total 1770 1810 1098 Output Total 825 2280 Balance 945 -470 1098 Weight 216 lb 3 oz Intake: IV 1520 1000 1098 Sodium Chloride 0.9% 1,000 ml @ 1000 1000 848 125 mls/hr IV .Q8H [facility] Rx#: [id number] Potassium Chloride 40 Meq In 520 Dextrose 5% in Water 500 ml @ 130 mls/hr IV ONCE ONE Rx#: [id number] Oral 250 810 Output: Gastric Drainage 375 1800 Right Nare 375 1800 Drainage 5 Right SYDNEE Drain 5 Void Amount 450 475 Other: Urine Appearance Clear Urine Color Dark Yellow Dark Yellow Neck Neck exam: Present full ROM Respiratory Respiratory exam: Present normal respiratory exam and CTAB Cardiovascular Cardiovascular exam: Present normal rate and rhythm, RRR, +S1 and +S2; Absent JVD GI/Abdominal GI/Abdominal exam: Present diminished bowel sounds and distended; Absent soft Extremities Exam Extremities exam: Present full ROM, normal inspection and neurovascular intact Neurological Exam Neurological exam: Present alert, oriented X3 and reflexes normal Psychiatric Psychiatric exam: Present normal affect and normal mood A/P Assessment and plan (1) Colostomy in place: Status: Acute (2) DMII (diabetes mellitus, type 2): Status: Chronic Comment: dx 2009 Qualifiers: Diabetes mellitus complication status: without complication Diabetes mellitus terminal operator insulin use: without fci use Qualified Code(s): E11.9 - Type 2 diabetes mellitus without complications (3) Hypertension, essential: Status: Chronic Narrative A/P Narrative: Continue present therapy Add KCl IV Clamp nasogastric tube Time Spent With Patient Time: Total time spent is greater than 50% in coordination of care (as documented) at patient's floor/unit and/or counseling patient:
[2021-02-09] MEDS: POTASSIUM CHLORIDE 40 MEQ in DEXTROSE 5% IN WATER 500 ML IV SCH ×2 (14:22→21:13)
[2021-02-09] MEDS: SENNOSIDES 1 TABLET PO SCH (21:14)
[2021-02-10] MEDS: 0.9 % SODIUM CHLORIDE 1,000 ML IV SCH ×5 (05:18→23:43)
[2021-02-10] MEDS: 0.9 % SODIUM CHLORIDE 10 ML SYRINGE IV SCH ×3 (05:21→21:04)
[2021-02-10] MEDS: INSULIN LISPRO 1 UNIT/0.01 ML UNIT SQ SCH ×4 (05:21→21:08)
[2021-02-10] MEDS: LEVOTHYROXINE 50 MCG TABLET PO SCH (07:39)
[2021-02-10] MEDS: HYDROmorphone 1 MG/ML SYRINGE IV PRN ×2 (07:46→21:04)
[2021-02-10] MEDS: buPROPion 150 MG TAB.XL.24H PO SCH (09:19)
[2021-02-10] MEDS: LEVOFLOXACIN 750 MG/150 ML BAG IV SCH (09:19)
[2021-02-10] MEDS: DOCUSATE SODIUM 100 MG CAPSULE PO SCH ×2 (09:19→21:03)
--- NOTE | 2021-02-10 15:02 | General Surgery Progress Note ---
SUBJECTIVE Subjective Patient information: Note initiated : 02/10/21 at 2:59 pm Service Date, if different from initiated Date: [] Patient: Agustin Goldsmith 65 y/o M admitted on 02/06/21 for Colostomy Takedown & Closure. Chief Complaint: [] Principal diagnosis: Colostomy takedown Interval history: Patient continues to do well. He has had much more flatus but no bowel movement so for. He denies nausea. Serum potassium 2.8, BUN 13, creatinine 0.8 Constitutional Vitals: Vital Signs Temp Pulse Resp BP Pulse Ox 97.5 F 50 L 12 135/74 97 02/10/21 12:00 02/10/21 12:00 02/10/21 12:00 02/10/21 12:00 02/10/21 12:00 Period Temp Pulse Resp BP Sys/Goodrich Pulse Ox Last 24 Hr 96.7 F-98.4 F 50-61 12-17 112-154/64-82 95-97 Intake and Output 02/10/21 02/10/21 02/10/21 05:59 13:59 21:59 Intake Total 720 417 Output Total 560 Balance 160 417 Intake & Output: Intake & Output 02/10/21 02/10/21 02/10/21 05:59 13:59 21:59 Intake Total 720 417 Output Total 560 Balance 160 417 Intake: IV 520 317 Sodium Chloride 0.9% 1,000 ml @ 0 167 125 mls/hr IV .Q8H [facility] Rx#: [id number] Potassium Chloride 40 Meq In 520 Dextrose 5% in Water 500 ml @ 130 mls/hr IV Q4H [facility] Rx#: [id number] Oral 200 100 Output: Drainage 10 Right SYDNEE Drain 10 Void Amount 550 Other: Urine Appearance Clear Urine Color Dark Yellow Light Tara Neck Neck exam: Present full ROM Respiratory Respiratory exam: Present normal respiratory exam and CTAB Cardiovascular Cardiovascular exam: Present normal rate and rhythm, RRR, +S1 and +S2; Absent JVD GI/Abdominal GI/Abdominal exam: Present diminished bowel sounds and distended; Absent soft Additional comments: Drainage is serous Extremities Exam Extremities exam: Present full ROM, normal inspection and neurovascular intact Neurological Exam Neurological exam: Present alert, oriented X3 and reflexes normal Psychiatric Psychiatric exam: Present normal affect and normal mood A/P Narrative A/P Narrative: Discontinue nasogastric tube Check CBC and inpatient panel in the morning Potassium chloride replacement Clear liquid diet Time Spent With Patient Time: Total time spent is greater than 50% in coordination of care (as documented) at patient's floor/unit and/or counseling patient:
[2021-02-10] MEDS: SENNOSIDES 1 TABLET PO SCH (21:03)
[2021-02-11] MEDS: 0.9 % SODIUM CHLORIDE 1,000 ML IV SCH ×3 (02:14→13:02)
[2021-02-11] MEDS: 0.9 % SODIUM CHLORIDE 10 ML SYRINGE IV SCH ×3 (04:17→22:43)
[2021-02-11 06:55] LABS: Basophils # (Auto) 0.05 K/mcL (0.00-0.30); Basophils % (Auto) 0.8 % (0.0-2.0); Eosinophils # (Auto) 0.14 K/mcL (0.00-0.70); Eosinophils % (Auto) 2.3 % (0.0-7.0); Hematocrit 37.7 % (40.1-51.0); Hemoglobin 12.5 g/dL (13.7-17.5); Lymphocytes # (Auto) 0.95 K/mcL (1.50-4.80); Lymphocytes % (Auto) 15.3 % (15.5-49.0); Mean Cell Volume 86.9 fL (80.0-100.0); Mean Corpuscular HGB Conc 33.2 g/dL (31.0-36.0); Mean Platelet Volume 11.1 fL (7.4-10.4); Monocytes # (Auto) 0.43 K/mcL (0.10-0.90); Monocytes % (Auto) 6.9 % (1.0-12.0); Neutrophils % (Auto) 74.7 % (38.0-78.0); Platelet Count 222 K/mcL (140-440); RBC 4.34 M/mcL (4.63-6.08); Red Cell Distribution Width 12.8 % (11.5-14.5); WBC 6.2 K/mcL (4.5-11.0)
[2021-02-11 07:18] LABS: ALT/SGPT 8 U/L (<40); AST/SGOT 9 U/L (<40); Albumin/Globulin Ratio 1.2 (1.0-2.3); Alkaline Phosphatase 51 U/L (39-117); Bilirubin,Direct < 0.2 mg/dL (0-0.3); Bilirubin,Total 0.4 mg/dL (0.1-1.0); Blood Urea Nitrogen 9 mg/dL (8-23); Calcium 8.5 mg/dL (8.6-10.4); Carbon Dioxide 24 mmol/L (22-30); Chloride 102 mmol/L (96-108); Globulin 2.6 gm/dL (2.2-3.7); Glomerular Filtration Rate 98; Glucose 120 mg/dL (70-105); Lactate Dehydrogenase 125 U/L (135-225); Phosphorous 3.1 mg/dL (2.5-4.5); Triglycerides 151 mg/dL (<150); Uric Acid 5.4 mg/dL (2.5-8.0)
[2021-02-11] MEDS: INSULIN LISPRO 1 UNIT/0.01 ML UNIT SQ SCH ×4 (07:19→20:52)
[2021-02-11] MEDS: LEVOTHYROXINE 50 MCG TABLET PO SCH (07:19)
[2021-02-11] MEDS: LEVOFLOXACIN 750 MG/150 ML BAG IV SCH (08:12)
[2021-02-11] MEDS: DOCUSATE SODIUM 100 MG CAPSULE PO SCH ×2 (08:13→20:52)
[2021-02-11] MEDS: buPROPion 150 MG TAB.XL.24H PO SCH (08:13)
[2021-02-11] MEDS: HYDROmorphone 1 MG/ML SYRINGE IV PRN ×2 (08:18→20:52)
--- NOTE | 2021-02-11 15:24 | Operative Note ---
DATE OF OPERATION: 02/06/2021 PREOPERATIVE DIAGNOSIS: Colostomy status. POSTOPERATIVE DIAGNOSES: Colostomy status. PROCEDURE: Colostomy takedown. SURGEON: Cr Deluca M.D. FINDINGS: Extensive scarring and adhesions in the entire abdomen with a viable rectal stump and no evidence of residual inflammation. DESCRIPTION OF PROCEDURE: Under general anesthesia, the patient's abdomen was prepped. The stoma was closed with running 2-0 silk. The area surrounding the stoma was reprepped and draped and a Vi-Drape was placed. A midline incision was made through the old incision. Upon entering the peritoneal cavity, the omentum was densely adherent to the peritoneum. This was taken down using sharp and blunt dissection. There was extensive scarring with adhesions in the lower abdomen. These were lysed using Metzenbaum scissors and electrocautery. This was continued until I could visualize the rectal stump. The rectal stump was inspected and appeared to be very viable and free enough for a good anastomosis. Irrigation was carried out and the pelvis was packed. Attention was then turned to the stoma. The distal descending colon was dissected and followed to the abdominal wall. Adhesions were taken down. The colon was divided at its junction with the abdominal wall using the Contour stapler. Further dissection was carried out along the lateral line of Toldt in order to get better length. The colon was able to be placed into the pelvis without tension. A two- layered end-to-side anastomosis was carried out suturing the end of the rectal stump to the side of the descending colon segment. This was done with an inner layer of running 2-0 Vicryl and an outer layer of running 2-0 Prolene. Mesenteric defect was closed with interrupted 2-0 silk. Irrigation was carried out. A #10 Anthony drain was placed in the pelvis below the anastomosis. More irrigation was carried out. The stump of the stoma was then circumferentially incised and fully excised using electrocautery. The fascia was closed from the peritoneal side using running #1 Prolene. At this point, irrigation was carried out and we changed gloves and gowns while a count was carried out. A new setup was placed and the full peritoneum was irrigated. All areas were inspected. The anastomosis appeared to be very stable without tension. The drain was secured below the anastomosis. The peritoneum and fascia were closed with running #1 Prolene. Subcutaneous tissue was irrigated and closed with 2-0 Monocryl. Skin in the midline incision was closed with madisyn. The drain was secured with 2-0 nylon. The stoma was irrigated and the fascia was closed anteriorly using #1 Prolene. Subcutaneous tissue was closed with 2-0 Vicryl. Skin was closed with madisyn. The patient tolerated the procedure well. He was awakened, transferred to a bed, and taken to the postanesthetic care unit in satisfactory condition. LCS:phuong Job ID: [id number] Doc ID: [id number] Cr Deluca M.D.
[2021-02-11] MEDS ORDERED: POTASSIUM CHLORIDE 40 MEQ in DEXTROSE 5% IN WATER 500 ML IV ONE (15:54)
[2021-02-11] MEDS ORDERED: MAGNESIUM SULFATE 4 GM/100 ML BAG IV ONE (15:54)
[2021-02-11] MEDS: METOCLOPRAMIDE 10 MG/2 ML VIAL IV SCH (17:28)
[2021-02-11] MEDS: SENNOSIDES 1 TABLET PO SCH (20:52)
[2021-02-12] MEDS: METOCLOPRAMIDE 10 MG/2 ML VIAL IV SCH ×4 (00:45→17:28)
[2021-02-12] MEDS: 0.9 % SODIUM CHLORIDE 10 ML SYRINGE IV SCH ×2 (05:01→14:06)
[2021-02-12] MEDS: LEVOTHYROXINE 50 MCG TABLET PO SCH (07:19)
[2021-02-12] MEDS: INSULIN LISPRO 1 UNIT/0.01 ML UNIT SQ SCH ×3 (07:23→17:14)
[2021-02-12 07:53] LABS: ALT/SGPT 9 U/L (<40); AST/SGOT 11 U/L (<40); Albumin 2.8 gm/dL (3.2-5.2); Albumin/Globulin Ratio 0.9 (1.0-2.3); Alkaline Phosphatase 56 U/L (39-117); Bilirubin,Direct < 0.2 mg/dL (0-0.3); Bilirubin,Total 0.4 mg/dL (0.1-1.0); Blood Urea Nitrogen 6 mg/dL (8-23); Calcium 8.7 mg/dL (8.6-10.4); Carbon Dioxide 21 mmol/L (22-30); Chloride 106 mmol/L (96-108); Globulin 3.1 gm/dL (2.2-3.7); Glomerular Filtration Rate 105; Glucose 128 mg/dL (70-105); Lactate Dehydrogenase 157 U/L (135-225); Phosphorous 2.5 mg/dL (2.5-4.5); Triglycerides 158 mg/dL (<150); Uric Acid 4.5 mg/dL (2.5-8.0)
[2021-02-12] MEDS: buPROPion 150 MG TAB.XL.24H PO SCH (10:19)
[2021-02-12] MEDS: DOCUSATE SODIUM 100 MG CAPSULE PO SCH (10:19)
[2021-02-12] MEDS: LEVOFLOXACIN 750 MG/150 ML BAG IV SCH (10:24)
--- NOTE | 2021-02-12 16:39 | Discharge Summary ---
Discharge Provider Provider Patient information: Note initiated : 02/12/21 at 4:34 pm Service Date, if different from initiated Date: [] Patient: Agustin Goldsmith 65 y/o M admitted on 02/06/21 for Colostomy Takedown & Closure. Chief Complaint: [] Date of admission: 02/06/21 04:59 Discharge date: 02/12/21 Primary care physician: Ngozi Swenson DO Admitting clinician: Cr Deluca Attending physician on admission: Cr Deluca Attending physician on discharge: Cr Deluca Discharging clinician: Cr Deluca COURSE Hospital Course Hospital course: -year-old male6 with history of colostomy status status post Linda's procedure for perforated diverticulitis with abscess. He 4 months post procedure is was admitted for and colostomy takedown. He had an uneventful preanastomosis. He is having regular bowel movements and tolerating diet at this time. Patient is stable for discharge home Discharge diagnosis: . Colostomy status Secondary discharge diagnosis: History of diverticulitis Reason for admission: Status post colostomy takedown Procedures: Colostomy takedown Pertinent studies/significant findings: None Complications: None Time Spent with Patient Time attestation: Total time spent providing and/or coordinating discharge services: Physical Examination Vital Signs Vital signs: Temp Pulse Resp BP Pulse Ox 97.3 F 62 16 140/80 97 02/12/21 12:00 02/12/21 12:00 02/12/21 12:00 02/12/21 12:00 02/12/21 12:00 Eyes Eye exam: PERRL and normal ocular movement ENT ENT exam: normal mucosa and no hearing loss Head Head exam IM: Present atraumatic, normal inspection and normocephalic Neck Neck exam: no masses, no bruits, trachea midline and no lymphadenopathy Cardiovascular Cardiovascular exam IM: Present irregular rhythm, +S1, +S2 and tachycardia; Absent JVD Respiratory Respiratory exam: normal expansion, normal respiratory effort and clear to auscultation Abdomen Abdomen: Present soft, tender (Mild incisional tenderness), bowel sounds (Good active bowel sounds) and surgical scars (WithHealing midline incision; and left lower quadrant incision) Integumentary Integumentary: Present no rash, no growths and no abnormal pigmentation Neurologic Neurologic: Present normal coordination and normal sensation Musculoskeletal Musculoskeletal: Present normal gait and normal posture Psychiatric Psychiatric: Present oriented to time, oriented to person, oriented to place, speech is normal and memory intact Discharge Plan Patient/Caregiver Discharge Instructions Activity: increase activity as tolerated Diet: Regular Diet Instructions: Metoclopramide (By mouth), Hydrocodone/Acetaminophen (By mouth), Open Colostomy Reversal (DC) Activity Restrictions/Additional Instructions: Increase activity as tolerated. Regular diet as tolerated. Call your physician for sustained feve greater than 100.5, bleeding, increase in pain not relieved by rest/medication, or any question/concern. [phone] This discharge packet is provided to you to help keep you informed about your care. We want to ensure you get everything you need when you go home. You will also be receiving a call from us in a few days to follow up with you and see how you are doing since your discharge. This gives us a chance to listen to any concerns you maybe experiencing since you were discharged or any additional needs you may have, as well as providing us feedback on your care experience. We strive to always provide excellent care and thank you for your feedback and for choosing [facility]. Prescriptions: New hydrocodone-acetaminophen 10-325 mg Tablet 1 tab PO Q4H PRN (Reason: Pain) Qty: 30 0RF metoclopramide HCl 10 mg tablet 10 mg PO Q6H Qty: 30 0RF Continued gemfibrozil 600 mg tablet 600 mg PO QAM Qty: 90 1RF Rx Instructions: administer with breakfast bupropion HCl 150 mg tablet extended release 24 hr 150 mg PO QAM Qty: 90 0RF Rx Instructions: (Combine 1-150mg tablet with 1-300mg tablet to total 450mg) bupropion HCl [Wellbutrin XL] 300 mg tablet extended release 24 hr 300 mg PO QAM Qty: 90 0RF Rx Instructions: (Combine 1-150mg tablet with 1-300mg tablet to total 450mg) multivitamin Tablet 1 tab PO QAM 0RF ascorbic acid (vitamin C) [Vitamin C] 1,000 mg Tablet 1,000 mg PO QDAY 0RF levothyroxine 50 mcg tablet 50 mcg PO QDAY 0RF cholecalciferol (vitamin D3) [Vitamin D3] 25 mcg (1,000 unit) Capsule 25 mcg PO QDAY 0RF przsuvw-lyl-ldt [id number]-[id number] [id number] ye-tu-cv-unit Tablet 1 tab PO QDAY 0RF glipizide-metformin 5-500 mg tablet 1 tab PO QAM 0RF zinc ikw-drvvpg-lsf palm-gnsg 15-2-160 mg Capsule 1 cap PO QDAY 0RF losartan 50 mg tablet 50 mg PO QDAY 0RF hydrochlorothiazide 50 mg tablet 50 mg PO QAM 0RF Follow Up Plan Follow up with: Cr Deluca MD [Physician] - 02/23/21 10:30 am Discharge Orders: Discharge Order (Routine); Ordered 02/12/21 Ordered By: Cr Deluca Pending Pending Pending: Resuscitation Status Resuscitate (Full Code) Diet Full Liquid Diet Start TueFeb 12 1331 Benzocaine (Benzocaine 1 [place] Bottle) 1 spray TOPICAL Q2HP PRN PRN Reason: Sore Throat Last Admin: 02/09/21 04:52 Dose: 1 spr Documented by: JOSE Bupropion HCl (Bupropion 150 Mg Tab.Xl.24h) 450 mg PO QAM [facility] Last Admin: 02/12/21 10:19 Dose: 450 mg Documented by: Admin: 02/11/21 08:13 Dose: 450 mg Documented by: Admin: 02/10/21 09:19 Dose: 450 mg Documented by: Admin: 02/09/21 08:59 Dose: 450 mg Documented by: Admin: 02/08/21 08:10 Dose: 450 mg Documented by: Admin: 02/07/21 08:32 Dose: 450 mg Documented by: ALL Diagnostic Test (Pha) (Accu-Chek 1 Each Strip) 1 each FS ACHS [facility] Last Admin: 02/12/21 11:51 Dose: 1 each Documented by: Admin: 02/12/21 07:22 Dose: 1 each Documented by: Admin: 02/11/21 20:49 Dose: 1 each Documented by: Admin: 02/11/21 16:59 Dose: 1 each Documented by: Admin: 02/11/21 11:35 Dose: 1 each Documented by: Admin: 02/11/21 07:17 Dose: 1 each Documented by: Admin: 02/10/21 21:07 Dose: 1 each Documented by: Admin: 02/10/21 17:00 Dose: 1 each Documented by: KASI Docusate Sodium (Docusate Sodium 100 Mg Capsule) 100 mg PO BID [facility] Last Admin: 02/12/21 10:19 Dose: 100 mg Documented by: Admin: 02/11/21 20:52 Dose: 100 mg Documented by: Admin: 02/11/21 08:13 Dose: 100 mg Documented by: Admin: 02/10/21 21:03 Dose: 100 mg Documented by: Admin: 02/10/21 09:19 Dose: 100 mg Documented by: Admin: 02/09/21 21:14 Dose: 100 mg Documented by: Admin: 02/09/21 08:58 Dose: 100 mg Documented by: Admin: 02/08/21 20:23 Dose: 100 mg Documented by: Admin: 02/08/21 08:10 Dose: 100 mg Documented by: Admin: 02/07/21 22:09 Dose: 100 mg Documented by: Admin: 02/07/21 08:32 Dose: 100 mg Documented by: Admin: 02/06/21 21:14 Dose: Not Given Documented by: CHANCE Fentanyl (Fentanyl 100 Mcg/2 Ml Vial) 25 mcg IV Q3HP PRN; Protocol PRN Reason: Per Pain Protocol Last Admin: 02/06/21 12:05 Dose: 25 mcg Documented by: [email or web address] Hydromorphone HCl (Hydromorphone 1 Mg/Ml Syringe) 1 mg IV Q2HP PRN; Protocol PRN Reason: Per Pain Protocol Last Admin: 02/11/21 20:52 Dose: 1 mg Documented by: Admin: 02/11/21 08:18 Dose: 1 mg Documented by: Admin: 02/10/21 21:04 Dose: 1 mg Documented by: Admin: 02/10/21 07:46 Dose: 1 mg Documented by: Admin: 02/09/21 21:13 Dose: 1 mg Documented by: Admin: 02/09/21 10:04 Dose: 1 mg Documented by: Admin: 02/08/21 04:00 Dose: 1 mg Documented by: Admin: 02/07/21 20:08 Dose: 1 mg Documented by: Admin: 02/07/21 15:44 Dose: 1 mg Documented by: Admin: 02/07/21 05:27 Dose: 1 mg Documented by: Admin: 02/07/21 03:03 Dose: 1 mg Documented by: Admin: 02/06/21 23:42 Dose: 1 mg Documented by: Admin: 02/06/21 20:21 Dose: 1 mg Documented by: Admin: 02/06/21 16:15 Dose: 1 mg Documented by: ROS Acetaminophen (Ofirmev) 1,000 mg in 100 mls @ 200 mls/hr IV Q6HP PRN; Protocol PRN Reason: Per Pain Protocol/Fever > 101 Last Infusion: 02/09/21 09:38 Dose: 0 mls/hr Documented by: Admin: 02/09/21 08:58 Dose: 200 mls/hr Documented by: ROS Levofloxacin (Levaquin) 750 mg in 150 mls @ 100 mls/hr IV Q24H [facility]; Protocol Last Infusion: 02/12/21 11:54 Dose: 0 mls/hr Documented by: Admin: 02/12/21 10:24 Dose: 100 mls/hr Documented by: Infusion: 02/11/21 21:02 Dose: 0 mls/hr Documented by: Admin: 02/11/21 08:12 Dose: 100 mls/hr Documented by: Infusion: 02/10/21 10:50 Dose: 0 mls/hr Documented by: Admin: 02/10/21 09:19 Dose: 100 mls/hr Documented by: Infusion: 02/09/21 13:22 Dose: 0 mls/hr Documented by: Admin: 02/09/21 08:57 Dose: 100 mls/hr Documented by: Infusion: 02/08/21 10:25 Dose: 0 mls/hr Documented by: Admin: 02/08/21 09:21 Dose: 100 mls/hr Documented by: Infusion: 02/07/21 10:00 Dose: 0 mls/hr Documented by: Admin: 02/07/21 08:31 Dose: 100 mls/hr Documented by: Infusion: 02/06/21 15:13 Dose: 0 mls/hr Documented by: Admin: 02/06/21 11:55 Dose: 100 mls/hr Documented by: ROS Insulin Human Lispro (Insulin Lispro 1 Unit/0.01 Ml Unit) 0 unit SQ ACHS [facility]; Protocol Last Admin: 02/12/21 11:25 Dose: 6 units Documented by: Admin: 02/12/21 07:23 Dose: Not Given Documented by: Admin: 02/11/21 20:52 Dose: 4 units Documented by: Admin: 02/11/21 16:59 Dose: Not Given Documented by: Admin: 02/11/21 11:37 Dose: 2 units Documented by: Admin: 02/11/21 07:19 Dose: Not Given Documented by: Admin: 02/10/21 21:08 Dose: 2 units Documented by: Admin: 02/10/21 17:02 Dose: Not Given Documented by: KASI Levothyroxine Sodium (Levothyroxine 50 Mcg Tablet) 50 mcg PO QAMAC [facility] Last Admin: 02/12/21 07:19 Dose: 50 mcg Documented by: Admin: 02/11/21 07:19 Dose: 50 mcg Documented by: Admin: 02/10/21 07:39 Dose: 50 mcg Documented by: Admin: 02/09/21 08:59 Dose: 50 mcg Documented by: Admin: 02/08/21 07:10 Dose: 50 mcg Documented by: Admin: 02/07/21 07:44 Dose: 50 mcg Documented by: ALL Metoclopramide HCl (Metoclopramide 10 Mg/2 Ml Vial) 10 mg IV Q6 [facility] Last Admin: 02/12/21 11:24 Dose: 10 mg Documented by: Admin: 02/12/21 05:01 Dose: 10 mg Documented by: Admin: 02/12/21 00:45 Dose: 10 mg Documented by: Admin: 02/11/21 17:28 Dose: 10 mg Documented by: KASI Ondansetron HCl (Ondansetron 4 Mg/2 Ml Vial) 4 mg IV Q4HP PRN; Protocol PRN Reason: Nausea And Vomiting Last Admin: 02/07/21 20:13 Dose: 4 mg Documented by: Admin: 02/07/21 07:43 Dose: 4 mg Documented by: ALL Nick (Sennosides 1 Tablet) 2 tab PO HS [facility] Last Admin: 02/11/21 20:52 Dose: 2 tab Documented by: Admin: 02/10/21 21:03 Dose: 2 tab Documented by: Admin: 02/09/21 21:14 Dose: 2 tab Documented by: Admin: 02/08/21 20:23 Dose: 2 tab Documented by: Admin: 02/07/21 22:09 Dose: 2 tab Documented by: Admin: 02/06/21 21:14 Dose: Not Given Documented by: CHANCE Sodium Chloride (0.9 % Sodium Chloride 10 Ml Syringe) 10 ml IV Q8 [facility] Last Admin: 02/12/21 14:06 Dose: 10 ml Documented by: Admin: 02/12/21 05:01 Dose: 10 ml Documented by: Admin: 02/11/21 22:43 Dose: Not Given Documented by: Admin: 02/11/21 13:03 Dose: Not Given Documented by: Admin: 02/11/21 04:17 Dose: Not Given Documented by: Admin: 02/10/21 21:04 Dose: 10 ml Documented by: Admin: 02/10/21 14:13 Dose: Not Given Documented by: Admin: 02/10/21 05:21 Dose: Not Given Documented by: Admin: 02/09/21 21:14 Dose: Not Given Documented by: Admin: 02/09/21 14:30 Dose: Not Given Documented by: Admin: 02/09/21 05:58 Dose: Not Given Documented by: Admin: 02/08/21 20:24 Dose: Not Given Documented by: Admin: 02/08/21 13:16 Dose: Not Given Documented by: Admin: 02/08/21 05:36 Dose: Not Given Documented by: Admin: 02/07/21 22:09 Dose: Not Given Documented by: Admin: 02/07/21 15:16 Dose: 10 ml Documented by: Admin: 02/07/21 05:12 Dose: Not Given Documented by: Admin: 02/06/21 21:14 Dose: Not Given Documented by: Admin: 02/06/21 13:14 Dose: Not Given Documented by: ROS Shift Summary 02/12/21 16:00 Shift Summary by Kirk Graham This patient is doing well. He has been passing flatus; his bowel tones are active; he had a BM this morning. Is up walking with a one person SBA for safety. He uses a cane; is a bit unsteady when walking. Has not required any PRN's. Is hoping for a regular meal and hopes to d/c home in the next day or two. He is alert and oriented; uses his call light appropriately. Uses a urinal to void with good output. No complications noted at surgical site. VSS on RA. Initialized on 02/12/21 16:00 - END OF NOTE
== END 2021-02-12 18:26 | disposition home or self-care (01) | DRG 330 ==
LOC: MEDSUR 04:59 → EDSTATUS 07:30
PROVIDERS: ADMIT Family Medicine Adult Medicine; ATTEND Family Medicine Adult Medicine